=== PATIENT | male | born 1950 | race Caucasian/White ===

== ENCOUNTER → 2017-09-26 16:35 | Outpatient (CLI) | payer MEDICARE, OTHER, SELFPAY | PROVIDERS: Family Provider Physician Assistant; PCP Physician Assistant; Visit Provider Physician Assistant | DX: Z51.81 Encounter for therapeutic drug level monitoring (principal); E11.9 Type 2 diabetes mellitus without complications; N52.9 Male erectile dysfunction, unspecified; Z79.4 Long term (current) use of insulin; Z53.9 Procedure and treatment not carried out, unspecified reason | CPT/HCPCS: 36415; 82040; 84270; 84403 ==

== ENCOUNTER → 2017-10-07 12:26 | Outpatient (CLI) | payer MEDICARE, OTHER, SELFPAY ==
[2017-10-12 13:49] LABS: Testosterone Free 82.4 pg/mL (35.0-155.0); Testosterone Total 467 ng/dL (250-1100)
== END ==
PROVIDERS: Family Provider Physician Assistant; PCP Physician Assistant; Visit Provider Physician Assistant
DX: R79.89 Other specified abnormal findings of blood chemistry (principal)
CPT/HCPCS: 36415; 84402; 84403

== ENCOUNTER 2017-11-18 13:02 | Emergency (ER) | payer MEDICARE, OTHER, SELFPAY ==
[2017-11-18 13:38] VITALS: BP 139/71; PULSE 83; RESP 16; O2SAT 99; BMI 30.8
[2017-11-18 15:15] LABS: Prothrombin Time 10.5 SECONDS (10.1-12.7)
[2017-11-18 15:17] LABS: Add Manual Diff / Slide Review NO; Basophils Percent Auto 0.7 % (0-2); Eosinophils Percent Auto 3.6 % (2-4); Hematocrit 42.5 % (41-53); Hemoglobin 14.5 g/dL (13.5-17.5); Lymphocytes Percent Auto 30.1 % (25-40); Mean Corpuscular HGB Conc 34.2 % (30-36); Mean Corpuscular Hemoglobin 30.7 PG (26-34); Mean Corpuscular Volume 89.8 fL (80-100); Monocytes Percent Auto 5.8 % (3-14); Neutrophils Absolute Auto 3700 /uL (3000-5900); Neutrophils Percent Auto 59.8 % (50-75); PTT Partial Thromboplastin Tim 31 SECONDS (26.4-36.2); Platelet Count 179 X10^3/uL (150-400); Red Blood Cell Count 4.73 X10^6/uL (4.5-5.9); Red Cell Distribution Width 12.6 % (11.6-14.8); White Blood Cell Count 6.2 X10^3/uL (4.5-11.0)
[2017-11-18 15:22] LABS: Alanine Aminotransferase 27 IU/L (21-72); Albumin 4.2 g/dL (3.5-5.0); Albumin Globulin Ratio 1.6 (1.0-2.8); Alkaline Phosphatase 62 U/L (38-126); Aspartate Aminotransferase 22 IU/L (17-59); BUN Creatinine Ratio 26.3 (6-22); Bilirubin Total 0.3 mg/dL (0.2-1.3); Blood Urea Nitrogen 21 mg/dL (9-20); Calcium 9.2 mg/dL (8.4-10.2); Carbon Dioxide 30 mmol/L (22-32); Chloride 100 mmol/L (98-107); Estimated Glomerular Filt Rate > 60.0 mL/min (>60); Globulin 2.6 g/dL (1.7-4.1); Glucose 92 mg/dL (80-110); HEMOLYSIS < 15 (0-50); Lipase 1049 U/L (23-300); Sodium 138 mmol/L (137-145); Total Protein 6.8 g/dL (6.3-8.2)
[2017-11-18 16:17] VITALS: BP 123/74; PULSE 63; RESP 14; O2SAT 97
--- NOTE | 2017-11-18 16:19 | ED.ABDPAIN ---
HPI - Abdominal Pain <Felicitas Blakely PA-C - Last Filed: 11/18/17 21:40> General Chief Complaint: Abdominal Pain Stated Complaint: RIGHT FLANK PAIN BACK AND ABD Time Seen by Provider: 11/18/17 16:18 Source: patient Mode of arrival: ambulatory Limitations: no limitations History of Present Illness HPI narrative: This 59 gentleman comes in today due to approximately three-week history of right flank pain. He states that this radiates to the front under his ribs sometimes. He states that pain seems to be better sitting up, he rode his bike here and walked around [place] without any increase in pain. He states that the pain increases with compressing or crunching his abdomen. He also notes that he has been out on his sailboat for the last 2 weeks and often on before that and tends to hoist his sail and anchor with his right arm crossing across his body so thinks possibly related to this. He has been taking ibuprofen. He denies any food triggers or other known exacerbating features. He denies any nausea or vomiting. He denies any fever, chills, sweats. He denies any hematuria or urinary symptoms. He denies any bowel habit changes, chest pain, dyspnea, rashes, or other new symptoms, does say pain makes it hard to sleep on that side. He does have a small nodule in his right abdomen that has been present for years and asymptomatic. Pain is not acutely worse today, but happened to be back off of his sailboat Related Data Home Medications Medication Instructions Recorded Confirmed cyanocobalamin (vitamin B-12) 500 mcg PO QDAY #0 tab 01/13/16 09/01/17 [Vitamin B-12] [place] ea QDAY #30 04/27/17 09/01/17 Glucose: Test Strips str QID #100 06/23/17 09/01/17 Previous Rx's Medication Instructions Recorded citalopram 40 mg PO QDAY #90 tab 03/16/17 hydrochlorothiazide 25 mg PO QDAY #90 tab 03/16/17 lisinopril 40 mg PO QDAY #90 tab 03/16/17 metformin [Glucophage XR] 1,000 mg PO BID #360 tab 03/16/17 pravastatin 20 mg PO HS #90 tab 03/16/17 thyroid (pork) [[place] Thyroid] 60 mg PO QDAY #90 tab 04/19/17 Diabetic [place]oes ea #1 04/20/17 insulin glargine [Toujeo SoloStar 10 u SQ QDAY #3 pac 04/21/17 U-300 Insulin] liothyronine [Cytomel] 5 mcg PO QAM #90 tab 04/26/17 [place] ea QDAY #30 04/27/17 Glucose: Test Strips str QID #100 04/28/17 Glucose: Home Monitoring Kit kit #1 05/16/17 insulin glargine [Toujeo SoloStar 30 u SQ QDAY #3 pac 05/16/17 U-300 Insulin] insulin glargine [Lantus Solostar 20 u SQ QAM #2 syr 06/06/17 U-100 Insulin] Glucose: Test Strips str QID #100 06/23/17 epinephrine 0.3 mg/0.3 mL 0.3 mg IM ONCE PRN #2 each 09/01/17 injection, auto-injector phentermine 30 mg capsule 30 mg PO QAM #60 cap 09/01/17 testosterone cypionate 200 mg/mL 200 mg IM Q2W #10 ml MDD 1ml 09/01/17 intramuscular oil weekly maximum Allergies Allergy/AdvReac Type Severity Reaction Status Date / Time bee venom protein (honey bee) Allergy Unknown Verified 11/18/17 13:31 [BEE VENOM PROTEIN (HONEY BEE)] Review of Systems <Felicitas Blakely PA-C - Last Filed: 11/18/17 21:40> Review of Systems All systems reviewed & are unremarkable except as noted in HPI and below Exam <Felicitas Blakely PA-C - Last Filed: 11/18/17 21:40> Narrative Exam Narrative: GENERAL APPEARANCE: Patient sitting comfortably, in no distress. HEENT: PERRL, EOMI, no scleral icterus NECK: Supple, no masses LUNGS: Clear to auscultation bilaterally. HEART: Rate and rhythm regular, normal S1 and S2, no S3 or S4. ABDOMEN: Soft, nondistended, bowel sounds present x 4 quadrants, no masses palpable, no hepatosplenomegaly. He is very minimally tender in the right upper quadrant but does have a positive Rondon sign, no tenderness elsewhere, no guarding or rebound. Minimal right CVAT EXTREMITIES: No edema, no cyanosis DERMATOLOGIC: No jaundice or exanthem NEUROLOGIC: Alert and oriented with normal speech and coordination Initial Vital Signs Initial Vital Signs: Vital Signs Pulse Rate 83 11/18/17 13:38 Respiratory Rate 16 11/18/17 13:38 Blood Pressure 139/71 H 11/18/17 13:38 Pulse Oximetry 99 11/18/17 13:38 <David Barnett MD - Last Filed: 11/20/17 08:38> Initial Vital Signs Initial Vital Signs: Vital Signs Pulse Rate 83 11/18/17 13:38 Respiratory Rate 16 11/18/17 13:38 Blood Pressure 139/71 H 11/18/17 13:38 Pulse Oximetry 99 11/18/17 13:38 Course <Felicitas Blakely PA-C - Last Filed: 11/18/17 21:40> Additional Information: Reviewed findings with patient including lab work without normal lipase and essentially normal ultrasound. Pain has been going on for several weeks, not keeping him from activity, not associated with fever or vomiting. There does not appear to be any acute surgical issue. He does have an isolated elevated lipase. We talked about continuing NSAID, try to avoid the repetitive musculoskeletal stress on this area that he has had recently, and follow up with PCP. He is agreeable with this plan and will also return if any acutely worsening symptoms in the interim Orders Ordered: Discontinued Medications Sodium Chloride (Normal Saline 0.9%) 1,000 mls @ 1,000 mls/hr IV BOLUS ONE Stop: 11/18/17 17:15 Last Infusion: 11/18/17 17:35 Dose: 0 mls/hr Admin: 11/18/17 16:21 Dose: 1,000 mls/hr Vital Signs - 8 hr 11/18/17 16:17 11/18/17 17:02 11/18/17 18:37 Temperature 98.1 F Pulse Rate 63 63 65 Respiratory Rate 14 13 14 Blood Pressure 142/83 H Blood Pressure [Left Arm] 123/74 H 123/76 H Pulse Oximetry 97 100 97 <David Barnett MD - Last Filed: 11/20/17 08:38> Orders Ordered: Discontinued Medications Sodium Chloride (Normal Saline 0.9%) 1,000 mls @ 1,000 mls/hr IV BOLUS ONE Stop: 07/21/18 17:15 Last Infusion: 11/18/17 17:35 Dose: 0 mls/hr Admin: 11/18/17 16:21 Dose: 1,000 mls/hr Vital Signs - 8 hr 11/18/17 16:17 11/18/17 17:02 11/18/17 18:37 Temperature 98.1 F Pulse Rate 63 63 65 Respiratory Rate 14 13 14 Blood Pressure 142/83 H Blood Pressure [Left Arm] 123/74 H 123/76 H Pulse Oximetry 97 100 97 MDM - Abdominal Pain <Felicitas Blakely PA-C - Last Filed: 11/18/17 21:40> Lab Data Result diagrams: 11/18/17 15:02 11/18/17 15:02 Lab Results 11/18/17 11/18/17 11/18/17 Range/Units 15:02 15:02 15:02 WBC 6.2 (4.5-11.0) X10^3/uL RBC 4.73 (4.5-5.9) X10^6/uL Hgb 14.5 (13.5-17.5) g/dL Hct 42.5 (41-53) % MCV 89.8 (80-100) fL MCH 30.7 (26-34) PG MCHC 34.2 (30-36) % RDW 12.6 (11.6-14.8) % Plt Count 179 (150-400) X10^3/uL Neut % (Auto) 59.8 (50-75) % Lymph % (Auto) 30.1 (25-40) % [place] % (Auto) 5.8 (3-14) % Eos % (Auto) 3.6 (2-4) % Baso % (Auto) 0.7 (0-2) % Neut # (Auto) 3700 (5247-7767) /uL PT 10.5 (10.1-12.7) SECONDS INR 1.0 (0.9-1.3) APTT 31 (26.4-36.2) SECONDS Sodium 138 (137-145) mmol/L Potassium 4.0 (3.4-5.1) mmol/L Chloride 100 (98-107) mmol/L Carbon Dioxide 30 (22-32) mmol/L BUN 21 H (9-20) mg/dL Creatinine 0.80 (0.66-1.25) mg/dL Estimated GFR > 60.0 (>60) mL/min BUN/Creatinine Ratio 26.3 H (6-22) Glucose 92 (80-110) mg/dL Lactate (0.7-2.1) mmol/L Calcium 9.2 (8.4-10.2) mg/dL Total Bilirubin 0.3 (0.2-1.3) mg/dL AST 22 (17-59) IU/L ALT 27 (21-72) IU/L Alkaline Phosphatase 62 (38-126) U/L Total Protein 6.8 (6.3-8.2) g/dL Albumin 4.2 (3.5-5.0) g/dL Globulin 2.6 (1.7-4.1) g/dL Albumin/Globulin Ratio 1.6 (1.0-2.8) Lipase 1049 H (23-300) U/L // Range/Units 16:37 WBC (4.5-11.0) X10^3/uL RBC (4.5-5.9) X10^6/uL Hgb (13.5-17.5) g/dL Hct (41-53) % MCV (80-100) fL MCH (26-34) PG MCHC (30-36) % RDW (11.6-14.8) % Plt Count (150-400) X10^3/uL Neut % (Auto) (50-75) % Lymph % (Auto) (25-40) % [place] % (Auto) (3-14) % Eos % (Auto) (2-4) % Baso % (Auto) (0-2) % Neut # (Auto) (4639-4645) /uL PT (10.1-12.7) SECONDS INR (0.9-1.3) APTT (26.4-36.2) SECONDS Sodium (137-145) mmol/L Potassium (3.4-5.1) mmol/L Chloride (98-107) mmol/L Carbon Dioxide (22-32) mmol/L BUN (9-20) mg/dL Creatinine (0.66-1.25) mg/dL Estimated GFR (>60) mL/min BUN/Creatinine Ratio (6-22) Glucose (80-110) mg/dL Lactate 2.1 (0.7-2.1) mmol/L Calcium (8.4-10.2) mg/dL Total Bilirubin (0.2-1.3) mg/dL AST (17-59) IU/L ALT (21-72) IU/L Alkaline Phosphatase (38-126) U/L Total Protein (6.3-8.2) g/dL Albumin (3.5-5.0) g/dL Globulin (1.7-4.1) g/dL Albumin/Globulin Ratio (1.0-2.8) Lipase (23-300) U/L Point of care testing: Urine Dip Bedside Urine Glucose Negative Bedside Urine Bilirubin - Negative Bedside Urine Ketone - Negative Urine Specific [place] 1.015 Bedside Urine Occult Blood - Negative Bedside Urine pH 6.5 Bedside Urine Protein - Negative Bedside Urine Urobilinogen - Negative Bedside Urine Nitrite - Negative Bedside Urine Leukocytes - Negative Esterase <David Barnett MD - Last Filed: 11/20/17 08:38> Lab Data Lab Results 11/18/17 11/18/17 11/18/17 Range/Units 15:02 15:02 15:02 WBC 6.2 (4.5-11.0) X10^3/uL RBC 4.73 (4.5-5.9) X10^6/uL Hgb 14.5 (13.5-17.5) g/dL Hct 42.5 (41-53) % MCV 89.8 (80-100) fL MCH 30.7 (26-34) PG MCHC 34.2 (30-36) % RDW 12.6 (11.6-14.8) % Plt Count 179 (150-400) X10^3/uL Neut % (Auto) 59.8 (50-75) % Lymph % (Auto) 30.1 (25-40) % [place] % (Auto) 5.8 (3-14) % Eos % (Auto) 3.6 (2-4) % Baso % (Auto) 0.7 (0-2) % Neut # (Auto) 3700 (9133-7175) /uL PT 10.5 (10.1-12.7) SECONDS INR 1.0 (0.9-1.3) APTT 31 (26.4-36.2) SECONDS Sodium 138 (137-145) mmol/L Potassium 4.0 (3.4-5.1) mmol/L Chloride 100 (98-107) mmol/L Carbon Dioxide 30 (22-32) mmol/L BUN 21 H (9-20) mg/dL Creatinine 0.80 (0.66-1.25) mg/dL Estimated GFR > 60.0 (>60) mL/min BUN/Creatinine Ratio 26.3 H (6-22) Glucose 92 (80-110) mg/dL Lactate (0.7-2.1) mmol/L Calcium 9.2 (8.4-10.2) mg/dL Total Bilirubin 0.3 (0.2-1.3) mg/dL AST 22 (17-59) IU/L ALT 27 (21-72) IU/L Alkaline Phosphatase 62 (38-126) U/L Total Protein 6.8 (6.3-8.2) g/dL Albumin 4.2 (3.5-5.0) g/dL Globulin 2.6 (1.7-4.1) g/dL Albumin/Globulin Ratio 1.6 (1.0-2.8) Lipase 1049 H (23-300) U/L / Range/Units 16:37 WBC (4.5-11.0) X10^3/uL RBC (4.5-5.9) X10^6/uL Hgb (13.5-17.5) g/dL Hct (41-53) % MCV (80-100) fL MCH (26-34) PG MCHC (30-36) % RDW (11.6-14.8) % Plt Count (150-400) X10^3/uL Neut % (Auto) (50-75) % Lymph % (Auto) (25-40) % [place] % (Auto) (3-14) % Eos % (Auto) (2-4) % Baso % (Auto) (0-2) % Neut # (Auto) (6362-8552) /uL PT (10.1-12.7) SECONDS INR (0.9-1.3) APTT (26.4-36.2) SECONDS Sodium (137-145) mmol/L Potassium (3.4-5.1) mmol/L Chloride (98-107) mmol/L Carbon Dioxide (22-32) mmol/L BUN (9-20) mg/dL Creatinine (0.66-1.25) mg/dL Estimated GFR (>60) mL/min BUN/Creatinine Ratio (6-22) Glucose (80-110) mg/dL Lactate 2.1 (0.7-2.1) mmol/L Calcium (8.4-10.2) mg/dL Total Bilirubin (0.2-1.3) mg/dL AST (17-59) IU/L ALT (21-72) IU/L Alkaline Phosphatase (38-126) U/L Total Protein (6.3-8.2) g/dL Albumin (3.5-5.0) g/dL Globulin (1.7-4.1) g/dL Albumin/Globulin Ratio (1.0-2.8) Lipase (23-300) U/L Point of care testing: Urine Dip Bedside Urine Glucose Negative Bedside Urine Bilirubin - Negative Bedside Urine Ketone - Negative Urine Specific [place] 1.015 Bedside Urine Occult Blood - Negative Bedside Urine pH 6.5 Bedside Urine Protein - Negative Bedside Urine Urobilinogen - Negative Bedside Urine Nitrite - Negative Bedside Urine Leukocytes - Negative Esterase Discharge Plan Departure Patient Disposition: Home, Self-Care Clinical Impression: Chronic right flank pain Discharge Date/Time: 11/18/17 18:39 Interventions: ED Discharge Assessment Last Done: 11/18/17 18:37 Instructions: DI for Abdominal Pain-Adult Activity Restrictions/Additional Instructions: Since this pain has been going on for several weeks now and appears to be associated with you hoisting your heavy sails and anchors, it is reasonable to continue your Ibuprofen, and try to avoid stress on that area including heavy lifting and pulling. You may wish to try some [id number] lidocaine or topical pain patches. You should return as we talked about if acutely worsening or new symptoms such as vomiting or fever, otherwise please follow-up with your PCP next week to reassess. Prescriptions: No Action testosterone cypionate [Depo-Testosterone] 200 mg/mL oil 200 mg IM Q2W MDD 1ml weekly maximum Qty: 10 RF: 0 phentermine 30 mg capsule 30 mg PO QAM Qty: 60 RF: 1 epinephrine 0.3 mg/0.3 mL auto-injector 0.3 mg IM ONCE PRN (Reason: anaphylaxis) Qty: 2 RF: 1 cyanocobalamin (vitamin B-12) [Vitamin B-12] 500 MCG tablet 500 mcg PO QDAY Qty: 0 RF: 0 citalopram 40 MG tablet 40 mg PO QDAY Qty: 90 RF: 3 pravastatin 20 MG tablet 20 mg PO HS Qty: 90 RF: 3 hydrochlorothiazide 25 MG tablet 25 mg PO QDAY Qty: 90 RF: 3 lisinopril 40 MG tablet 40 mg PO QDAY Qty: 90 RF: 3 metformin [Glucophage XR] 500 MG tablet extended release 24 hr 1,000 mg PO BID Qty: 360 RF: 3 thyroid (pork) [[place] Thyroid] 60 MG tablet 60 mg PO QDAY Qty: 90 RF: 3 Diabetic Shoes Qty: 1 RF: 0 insulin glargine [Toujeo SoloStar U-300 Insulin] 300 UNIT/1 ML insulin pen 10 u SQ QDAY Qty: 3 RF: 9 liothyronine [Cytomel] 5 MCG tablet 5 mcg PO QAM Qty: 90 RF: 3 [place] QDAY Qty: 30 RF: 3 [place] QDAY Qty: 30 RF: 3 Glucose: Test Strips QID Qty: 100 RF: 11 Glucose: Home Monitoring Kit Qty: 1 RF: 0 insulin glargine [T[place]jeo SoloStar U-300 Insulin] 300 UNIT/1 ML insulin pen 30 u SQ QDAY Qty: 3 RF: 3 insulin glargine [Lantus Solostar U-100 Insulin] 100 UNIT/1 ML insulin pen 20 u SQ QAM Qty: 2 RF: 3 Glucose: Test Strips QID Qty: 100 RF: 5 Glucose: Test Strips QID Qty: 100 RF: 5 Referrals: Tamiko Dukes DO [Primary Care Provider] - <David Barnett MD - Last Filed: 11/20/17 08:38> Sign Out Provider Sign Out Attestation: The PA/CIVIL ENGINEERING ASSISTANT functioned independently for the care of this pt, I was available, but not asked to participate in care. I am unable to determine appropriateness of management without personally examining the pt.
[2017-11-18] MEDS: SODIUM CHLORIDE 0.9% 1,000 ML 1000 ML IV (16:21)
--- NOTE | 2017-11-18 16:32 | DI.US.S_ITS ---
PROCEDURE: US ABDOMEN COMPLETE INDICATIONS: RUQ pain, elevated lipase TECHNIQUE: Real-time scanning was performed of the abdominal and retroperitoneal organs, with image documentation. COMPARISON: None. FINDINGS: Liver: Liver is normal in size and homogeneous in echotexture. Gallbladder: The gallbladder is unremarkable. Biliary ducts: Intrahepatic bile ducts are non-dilated. Extrahepatic bile duct caliber is not visualized. Pancreas: Not visualized. Spleen: Spleen is normal in size and homogeneous in echotexture. Kidneys: Kidneys are normal in size and echotexture. Right kidney measures 12.1 cm long; left kidney measures 12.6 cm long. No hydronephrosis or nephrolithiasis. No solid masses. Aorta: Visualized aorta is normal in caliber at less than 3 cm. Iliacs: Proximal common iliac arteries are normal in caliber at less than 2.5 cm. IVC: Intrahepatic inferior vena cava is patent. Miscellaneous: No free abdominal fluid. IMPRESSION: Unremarkable exam. Dictated by: Elizabeth Simental M.D. on 11/18/2017 at 18:19 Approved by: Elizabeth Simental M.D. on 11/18/2017 at 18:19
[2017-11-18 17:02] VITALS: BP 123/76; PULSE 63; RESP 13; O2SAT 100
[2017-11-18 17:09] LABS: Lactate (Lactic Acid) 2.1 mmol/L (0.7-2.1)
[2017-11-18 18:37] VITALS: BP 142/83; PULSE 65; RESP 14; TEMP 36.7; O2SAT 97
== END 2017-11-18 18:39 | disposition home or self-care (01) ==
PROVIDERS: Emergency Provider Internal Medicine; PCP Family Medicine
DX: R10.9 Unspecified abdominal pain (principal); G89.29 Other chronic pain
CPT/HCPCS: 36415; 36591; 76700; 80053; 81003; 83605; 83690; 85025; 85610; 85730; 96360; 99283; 99284

== ENCOUNTER → 2017-12-14 13:34 | Outpatient (CLI) | payer MEDICARE, OTHER, SELFPAY ==
[2017-12-14 14:23] LABS: Alanine Aminotransferase 30 IU/L (21-72); Albumin 4.4 g/dL (3.5-5.0); Albumin Globulin Ratio 1.6 (1.0-2.8); Alkaline Phosphatase 64 U/L (38-126); Amylase 157 U/L (30-110); Aspartate Aminotransferase 24 IU/L (17-59); Bilirubin Total 0.3 mg/dL (0.2-1.3); Blood Urea Nitrogen 27 mg/dL (9-20); Calcium 9.9 mg/dL (8.4-10.2); Carbon Dioxide 30 mmol/L (22-32); Chloride 98 mmol/L (98-107); Estimated Glomerular Filt Rate > 60.0 mL/min (>60); Globulin 2.8 g/dL (1.7-4.1); Glucose 111 mg/dL (80-110); HEMOLYSIS < 15 (0-50); Lipase 841 U/L (23-300); Potassium 4.2 mmol/L (3.4-5.1); Sodium 139 mmol/L (137-145); Total Protein 7.2 g/dL (6.3-8.2)
== END ==
PROVIDERS: PCP Family Medicine
DX: R94.5 Abnormal results of liver function studies (principal); R10.9 Unspecified abdominal pain
CPT/HCPCS: 36415; 80053; 82150; 83690

== ENCOUNTER 2018-01-12 10:02 | Emergency (ER) | payer MEDICARE, OTHER, SELFPAY ==
[2018-01-12 10:04] VITALS: BP 164/83; PULSE 82; RESP 14; O2SAT 98; BMI 32.1
[2018-01-12 10:45] LABS: Add Manual Diff / Slide Review NO; Basophils Percent Auto 0.6 % (0-2); Eosinophils Percent Auto 3.5 % (2-4); Hematocrit 41.2 % (41-53); Hemoglobin 14.6 g/dL (13.5-17.5); Lymphocytes Percent Auto 35.7 % (25-40); Mean Corpuscular HGB Conc 35.5 % (30-36); Mean Corpuscular Hemoglobin 30.9 PG (26-34); Mean Corpuscular Volume 87.2 fL (80-100); Monocytes Percent Auto 5.3 % (3-14); Neutrophils Absolute Auto 2400 /uL (3000-5900); Neutrophils Percent Auto 54.9 % (50-75); Platelet Count 172 X10^3/uL (150-400); Red Blood Cell Count 4.72 X10^6/uL (4.5-5.9); Red Cell Distribution Width 13.1 % (11.6-14.8); White Blood Cell Count 4.3 X10^3/uL (4.5-11.0)
[2018-01-12 10:47] LABS: INR 1.1 (0.9-1.3); Prothrombin Time 11.5 SECONDS (10.1-12.7)
[2018-01-12 10:49] LABS: PTT Partial Thromboplastin Tim 33 SECONDS (26.4-36.2)
[2018-01-12 10:55] LABS: Alanine Aminotransferase 25 IU/L (21-72); Albumin 4.2 g/dL (3.5-5.0); Albumin Globulin Ratio 1.6 (1.0-2.8); Alkaline Phosphatase 62 U/L (38-126); Aspartate Aminotransferase 22 IU/L (17-59); BUN Creatinine Ratio 22.2 (6-22); Bilirubin Total 0.4 mg/dL (0.2-1.3); Blood Urea Nitrogen 20 mg/dL (9-20); Calcium 9.2 mg/dL (8.4-10.2); Carbon Dioxide 26 mmol/L (22-32); Chloride 100 mmol/L (98-107); Estimated Glomerular Filt Rate > 60.0 mL/min (>60); Globulin 2.7 g/dL (1.7-4.1); Glucose 215 mg/dL (80-110); HEMOLYSIS < 15 (0-50); Lipase 187 U/L (23-300); Potassium 4.1 mmol/L (3.4-5.1); Sodium 139 mmol/L (137-145); Total Protein 6.9 g/dL (6.3-8.2)
--- NOTE | 2018-01-12 10:56 | ED.ABDPAIN ---
HPI - Abdominal Pain General Chief Complaint: Abdominal Pain Stated Complaint: LEFT FLANK/BACK PAIN Time Seen by Provider: 01/12/18 10:19 Source: patient Mode of arrival: ambulatory Limitations: no limitations History of Present Illness HPI narrative: Patient is a 67-year-old male who presents with a left-sided back pain radiating around to his abdomen. This started last night. He could not find a comfortable position this morning. He has no pain down his leg. He actually has had some ongoing abdominal discomfort for a couple of months. He was seen here a few times noted to have an elevated lipase as high as 1000 he had an ultrasound which was unremarkable repeat lipase was 800. He denies any nausea or vomiting or mid epigastric pain. He has not had any fever or chills. He has no UTI symptoms. Related Data Home Medications Medication Instructions Recorded Confirmed cyanocobalamin (vitamin B-12) 500 mcg PO QDAY #0 tab 01/13/16 01/12/18 [Vitamin B-12] aspirin 81 mg tablet,delayed 81 mg PO DAILY 12/12/17 01/12/18 release insulin glargine [Lantus Solostar 20 units SQ QAM 01/12/18 01/12/18 U-100 Insulin] Previous Rx's Medication Instructions Recorded citalopram 40 mg PO QDAY #90 tab 03/16/17 hydrochlorothiazide 25 mg PO QDAY #90 tab 03/16/17 lisinopril 40 mg PO QDAY #90 tab 03/16/17 metformin [Glucophage XR] 1,000 mg PO BID #360 tab 03/16/17 pravastatin 20 mg PO HS #90 tab 03/16/17 liothyronine [Cytomel] 5 mcg PO QAM #90 tab 04/26/17 Glucose: Home Monitoring Kit kit #1 05/16/17 Glucose: Test Strips str QID #100 06/23/17 epinephrine 0.3 mg/0.3 mL 0.3 mg IM ONCE PRN #2 each 09/01/17 injection, auto-injector testosterone cypionate 200 mg/mL 200 mg IM Q2W #10 ml MDD 1ml 09/01/17 intramuscular oil weekly maximum cyclobenzaprine 5 mg PO TID PRN #10 tab 01/12/18 Allergies Allergy/AdvReac Type Severity Reaction Status Date / Time bee venom protein (honey bee) Allergy Unknown Verified 01/12/18 10:09 [BEE VENOM PROTEIN (HONEY BEE)] Review of Systems Review of Systems GENERAL: Denies chills, fatigue, malaise, fever, sweats, travel HEENT: Denies sinus pain, ear pain, sore throat, difficulty swallowing, neck pain RESPIRATORY: Denies dyspnea, cough, wheezing, hemoptysis, sputum. CARDIOVASCULAR: Denies chest pain, palpitations, orthopnea, edema GASTROINTESTINAL: See HPI : Denies dysuria, frequency, incontinence, hematuria, urinary retention, flank pain. MUSCULOSKELETAL: Denies weakness, joint pain, or bony pain SKIN: No rash, no erythema, no pruritus NEUROLOGIC: Denies weakness, dizziness, headache, numbness, change in speech, confusion PSYCHIATRIC: No concerning psychosocial issues. 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 seatbelt use: sometimes helmet use: Yes (usually) water heater temp set < 120 deg: Yes fire extinguisher in home: Yes carbon monox detector in home: Yes firearms in home: No Smoking Status: Former smoker alcohol intake: current during the past year weight has: other well-balanced diet: rarely or never daily servings fruits/ve-1 caffeine: Yes eating out: 1-3 times/week frequency: daily additional social history: uses reading glasses Exam Initial Vital Signs Initial Vital Signs: Vital Signs Pulse Rate 82 01/12/18 10:04 Respiratory Rate 14 01/12/18 10:04 Blood Pressure 164/83 H 01/12/18 10:04 Pulse Oximetry 98 01/12/18 10:04 Const General: cooperative and well developed Nutritional Appearance: well nourished Orientation: alert, awake, oriented x3 and not confused HENVT Head: normal to inspection and normocephalic Eyes General: appearance normal, both eyes and all related structures Neck Neck: normal visual inspection and full ROM Chest Chest: normal inspection of the chest Resp Effort & Inspection: normal respiratory effort Cardio Rhythm: regular rhythm Heart Sounds: S1 normal and S2 normal GI Inspection: normal to inspection Palpation: soft, No firm, No guarding and No rigid Back/Spine/Pelvis Back: normal to inspection and back tenderness (Mild lower lumbar pain no guarding no vertebral tenderness no step-offs) Skin General: no rashes or lesions noted, elasticity normal and turgor normal Neuro General: alert, oriented x3, gait normal and no focal motor deficits Speech: speech normal Course Orders Ordered: ED Orders 01/12/18 10:27 Complete Blood Count AUTO DIFF Stat Comprehensive Metabolic Panel Stat Lipase Stat Partial Thromboplastin Time Stat Prothrombin Time INR Stat 01/12/18 11:11 CT abdomen pelvis w con Stat Vital Signs - 8 hr 01/12/18 10:04 01/12/18 12:45 Pulse Rate 82 80 Respiratory Rate 14 18 Blood Pressure 164/83 H 162/78 H Pulse Oximetry 98 97 MDM - Abdominal Pain Lab Data Attestation: I reviewed the patient's lab results. Result diagrams: 01/12/18 10:27 01/12/18 10:27 Lab Results 01/12/18 01/12/18 01/12/18 Range/Units 10:27 10:27 10:27 WBC 4.3 L (4.5-11.0) X10^3/uL RBC 4.72 (4.5-5.9) X10^6/uL Hgb 14.6 (13.5-17.5) g/dL Hct 41.2 (41-53) % MCV 87.2 (80-100) fL MCH 30.9 (26-34) PG MCHC 35.5 (30-36) % RDW 13.1 (11.6-14.8) % Plt Count 172 (150-400) X10^3/uL Neut % (Auto) 54.9 (50-75) % Lymph % (Auto) 35.7 (25-40) % Mills % (Auto) 5.3 (3-14) % Eos % (Auto) 3.5 (2-4) % Baso % (Auto) 0.6 (0-2) % Neut # (Auto) 2400 L (8681-4784) /uL PT 11.5 (10.1-12.7) SECONDS INR 1.1 (0.9-1.3) APTT 33 D (26.4-36.2) SECONDS Sodium 139 (137-145) mmol/L Potassium 4.1 (3.4-5.1) mmol/L Chloride 100 (98-107) mmol/L Carbon Dioxide 26 (22-32) mmol/L BUN 20 (9-20) mg/dL Creatinine 0.90 (0.66-1.25) mg/dL Estimated GFR > 60.0 (>60) mL/min BUN/Creatinine Ratio 22.2 H (6-22) Glucose 215 H (80-110) mg/dL Calcium 9.2 (8.4-10.2) mg/dL Total Bilirubin 0.4 (0.2-1.3) mg/dL AST 22 (17-59) IU/L ALT 25 (21-72) IU/L Alkaline Phosphatase 62 (38-126) U/L Total Protein 6.9 (6.3-8.2) g/dL Albumin 4.2 (3.5-5.0) g/dL Globulin 2.7 (1.7-4.1) g/dL Albumin/Globulin Ratio 1.6 (1.0-2.8) Lipase 187 (23-300) U/L Point of care testing: Urine Dip Bedside Urine Glucose 250 mg/dl Bedside Urine Bilirubin - Negative Bedside Urine Ketone - Negative Urine Specific [place] 1.015 Bedside Urine Occult Blood - Negative Bedside Urine pH 6.0 Bedside Urine Protein - Negative Bedside Urine Urobilinogen - Negative Bedside Urine Nitrite - Negative Bedside Urine Leukocytes - Negative Esterase Imaging Data CT scan - abdomen: Radiologist's impression: PROCEDURE: CT ABDOMEN PELVIS W CON INDICATIONS: worsening on going left lower quad pain TECHNIQUE: After the administration of intravenous contrast, 5 mm thick sections acquired from the diaphragm to the symphysis. 5 mm coronal and sagittal reformats were acquired. For radiation dose reduction, the following was used: automated exposure control, adjustment of mA and/or kV according to patient size. COMPARISON: None. FINDINGS: Image quality: Excellent. ABDOMEN: Lung bases: Lung bases are clear. Heart size is normal. Solid organs: Nonspecific 2 mm hepatic hypodensity seen on image 19 series 2.. Gallbladder contracted otherwise unremarkable. Biliary system is non dilated. Pancreas enhances normally. Spleen is normal in size and enhancement. No adrenal nodules. Kidneys demonstrate normal size and enhancement, without hydronephrosis. Nonobstructive 3-4 mm left renal calculus Peritoneum and bowel: Bowel loops demonstrate normal wall thickness and caliber. No free fluid or air. Normal appendix. The rectum is unremarkable. No evidence of acute diverticulitis. There is moderate to large amount of retained stool Nodes and vessels: No retroperitoneal or mesenteric adenopathy by size criteria. Aorta and inferior vena cava are normal in size. Miscellaneous: No ventral hernias. PELVIS: Genitourinary: Bladder wall thickness is normal. Miscellaneous: Tiny fat-containing inguinal hernia. No pelvic adenopathy. Bones: No suspicious bony lesions. Multilevel thoracic and lumbar discogenic changes, chronic. Facet arthropathy and chronic L5 pars defects. No vertebral body compression fractures. IMPRESSION: Normal appendix. No specific visualized etiology for clinically reported left lower quadrant pain. Moderate to large amount of retained stool seen throughout the colon 3-4 mm nonobstructive left renal calculus. Chronic and incidental findings as above Dictated by: Blake Phillips M.D. on 01/12/2018 at 11:31 MDM Narrative Medical decision making narrative: Patient's symptoms really do seem to be more back and musculoskeletal rather than abdominal. Lipase is back to normal. CT does show some left renal stones but the ureter is clear. Patient has had kidney stones this does not feel sick. He also with the likely musculoskeletal. He has taken Flexeril in the past and has worked Discharge Plan Departure Patient Disposition: Home Clinical Impression: Back pain Discharge Date/Time: 01/12/18 12:45 Interventions: ED Discharge Assessment Last Done: 01/12/18 12:45 Instructions: DI for Low Back Pain Activity Restrictions/Additional Instructions: *You have been diagnosed with back pain *What to do: Blood work and CT scan are reassuring. You do have a stone in the left kidney which should not be causing problems at this time. Lipase is back to normal. *Continue to take medications as directed Flexeril 2 to 3 times a day if needed for muscle spasm-Faxed [facility] *Follow up with your primary care provider in 2-3 days *Return to ER if you should have increased numbness tingling, weakness or any new, worsening or concerning symptoms Prescriptions: New cyclobenzaprine 5 mg tablet 5 mg PO TID PRN (Reason: muscle spasm) Qty: 10 RF: 0 No Action testosterone cypionate [Depo-Testosterone] 200 mg/mL oil 200 mg IM Q2W MDD 1ml weekly maximum Qty: 10 RF: 0 epinephrine 0.3 mg/0.3 mL auto-injector 0.3 mg IM ONCE PRN (Reason: anaphylaxis) Qty: 2 RF: 1 aspirin 81 mg tablet,delayed release (DR/EC) 81 mg PO DAILY RF: 0 cyanocobalamin (vitamin B-12) [Vitamin B-12] 500 MCG tablet 500 mcg PO QDAY Qty: 0 RF: 0 citalopram 40 MG tablet 40 mg PO QDAY Qty: 90 RF: 3 pravastatin 20 MG tablet 20 mg PO HS Qty: 90 RF: 3 hydrochlorothiazide 25 MG tablet 25 mg PO QDAY Qty: 90 RF: 3 lisinopril 40 MG tablet 40 mg PO QDAY Qty: 90 RF: 3 metformin [Glucophage XR] 500 MG tablet extended release 24 hr 1,000 mg PO BID Qty: 360 RF: 3 liothyronine [Cytomel] 5 MCG tablet 5 mcg PO QAM Qty: 90 RF: 3 Glucose: Home Monitoring Kit Qty: 1 RF: 0 Glucose: Test Strips QID Qty: 100 RF: 5 insulin glargine [Lantus Solostar U-100 Insulin] 100 UNIT/1 ML insulin pen 20 units SQ QAM RF: 0 Referrals: [facility] [Provider Group] Tamiko Dukes DO [Primary Care Provider] -
--- NOTE | 2018-01-12 11:11 | DI.CT.S_ITS ---
PROCEDURE: CT ABDOMEN PELVIS W CON INDICATIONS: worsening on going left lower quad pain TECHNIQUE: After the administration of intravenous contrast, 5 mm thick sections acquired from the diaphragm to the symphysis. 5 mm coronal and sagittal reformats were acquired. For radiation dose reduction, the following was used: automated exposure control, adjustment of mA and/or kV according to patient size. COMPARISON: None. FINDINGS: Image quality: Excellent. ABDOMEN: Lung bases: Lung bases are clear. Heart size is normal. Solid organs: Nonspecific 2 mm hepatic hypodensity seen on image 19 series 2.. Gallbladder contracted otherwise unremarkable. Biliary system is non dilated. Pancreas enhances normally. Spleen is normal in size and enhancement. No adrenal nodules. Kidneys demonstrate normal size and enhancement, without hydronephrosis. Nonobstructive 3-4 mm left renal calculus Peritoneum and bowel: Bowel loops demonstrate normal wall thickness and caliber. No free fluid or air. Normal appendix. The rectum is unremarkable. No evidence of acute diverticulitis. There is moderate to large amount of retained stool Nodes and vessels: No retroperitoneal or mesenteric adenopathy by size criteria. Aorta and inferior vena cava are normal in size. Miscellaneous: No ventral hernias. PELVIS: Genitourinary: Bladder wall thickness is normal. Miscellaneous: Tiny fat-containing inguinal hernia. No pelvic adenopathy. Bones: No suspicious bony lesions. Multilevel thoracic and lumbar discogenic changes, chronic. Facet arthropathy and chronic L5 pars defects. No vertebral body compression fractures. IMPRESSION: Normal appendix. No specific visualized etiology for clinically reported left lower quadrant pain. Moderate to large amount of retained stool seen throughout the colon 3-4 mm nonobstructive left renal calculus. Chronic and incidental findings as above Dictated by: Blake Phillips M.D. on 01/12/2018 at 11:31 Approved by: Blake Phillips M.D. on 01/12/2018 at 11:46
[2018-01-12 12:45] VITALS: BP 162/78; PULSE 80; RESP 18; O2SAT 97
== END 2018-01-12 12:45 | disposition home or self-care (01) ==
PROVIDERS: Emergency Provider Emergency Medicine; PCP Family Medicine
DX: M54.9 Dorsalgia, unspecified (principal)
CPT/HCPCS: 36591; 74177; 80053; 81003; 83690; 85025; 85610; 85730; 99282; 99285; Q9967

== ENCOUNTER 2018-01-15 11:56 | Emergency (ER) | payer MEDICARE, OTHER, SELFPAY ==
--- NOTE | 2018-01-15 12:08 | ED_ITS ---
HPI - Back Pain/Injury <NEAL Morel - Last Filed: 01/15/18 21:40> General Chief Complaint: Back Pain/Injury Stated Complaint: left lower back pain Time Seen by Provider: 01/15/18 12:05 Source: patient Mode of arrival: ambulatory Limitations: no limitations History of Present Illness HPI Narrative: 67-year-old male with history of type 2 diabetes and chronic lower back pain that is a nonsmoker here for complaint of left lower back pain. He was seen at 3 days ago in the emergency room here had workup for left flank pain that radiated to the left lower quadrant with normal lab results and CT that showed a 3-4 mm non passing kidney stone. Was diagnosed with muscle skeletal lower back pain and prescribed cyclobenzaprine. He states that the cyclobenzaprine has helped his symptoms however he does have pain now that radiates down into his left buttocks area over the past couple of days. He has not been able to get back to primary care. He denies any trauma to the area. He is ambulatory into the emergency room. He reports worsening pain with movement of the left lower back region. He denies any loss of bladder or bowel control. MD Complaint: back pain Related Data Home Medications Medication Instructions Recorded Confirmed cyanocobalamin (vitamin B-12) 500 mcg PO QDAY #0 tab 01/13/16 01/15/18 [Vitamin B-12] aspirin 81 mg tablet,delayed 81 mg PO DAILY 12/12/17 01/15/18 release insulin glargine [Lantus Solostar 20 units SQ QAM 01/12/18 01/15/18 U-100 Insulin] Previous Rx's Medication Instructions Recorded citalopram 40 mg PO QDAY #90 tab 03/16/17 hydrochlorothiazide 25 mg PO QDAY #90 tab 03/16/17 lisinopril 40 mg PO QDAY #90 tab 03/16/17 metformin [Glucophage XR] 1,000 mg PO BID #360 tab 03/16/17 pravastatin 20 mg PO HS #90 tab 03/16/17 liothyronine [Cytomel] 5 mcg PO QAM #90 tab 04/26/17 Glucose: Home Monitoring Kit kit #1 05/16/17 Glucose: Test Strips str QID #100 06/23/17 epinephrine 0.3 mg/0.3 mL 0.3 mg IM ONCE PRN #2 each 09/01/17 injection, auto-injector testosterone cypionate 200 mg/mL 200 mg IM Q2W #10 ml MDD 1ml 09/01/17 intramuscular oil weekly maximum cyclobenzaprine 5 mg PO TID PRN #10 tab 01/12/18 oxycodone-acetaminophen [Percocet] 1 tab PO Q4-6H PRN #10 tab 01/15/18 prednisone 40 mg PO DAILY #8 tab 01/15/18 Allergies Allergy/AdvReac Type Severity Reaction Status Date / Time bee venom protein (honey bee) Allergy Unknown Verified 01/15/18 13:13 [BEE VENOM PROTEIN (HONEY BEE)] Review of Systems <NEAL Morel - Last Filed: 01/15/18 21:40> Constitutional Denies chills, Denies fever(s), Denies lethargy and Denies weakness Eyes Denies change in vision, Denies eye discharge, Denies irritation and Denies loss of vision ENT Ears, Nose, Mouth, and Throat: Denies change in voice, Denies neck pain, Denies sore throat and Denies throat swelling Cardiovascular Denies chest pain, Denies irregular heart rhythm, Denies lightheadedness, Denies palpitations and Denies orthopnea Respiratory Denies wheezing Gastrointestinal Gastrointestinal: Denies abdominal pain, Denies change in bowel habits, Denies diarrhea, Denies nausea and Denies vomiting Genitourinary Denies hematuria, Denies flank pain, Denies urinary incontinence and Denies urinary urgency Musculoskeletal Denies neck pain Comments: Left lower back pain Integumentary/Breasts Denies pruritus, Denies erythema, Denies rash and Denies wounds Neurologic Denies confusion, Denies loss of vision and Denies weakness Psychiatric Denies anxiety, Denies confusion, Denies depression, Denies homicidal ideation and Denies suicidal ideation Endocrine Denies palpitations Allergic/Immunologic Denies urticaria, Denies throat swelling and Denies wheezing Exam <NEAL Morel - Last Filed: 01/15/18 21:40> Initial Vital Signs Initial Vital Signs: Vital Signs Temperature 97.2 F L 01/15/18 12:11 Pulse Rate 80 01/15/18 12:11 Respiratory Rate 16 01/15/18 12:11 Blood Pressure 149/74 H 01/15/18 12:11 Pulse Oximetry 100 09/17/18 12:11 Const General: cooperative and well developed Nutritional Appearance: well nourished Orientation: alert, awake, oriented x3 and not confused HENIA Mouth: oral mucosae normal, oropharynx normal and moist mucous membranes Eyes Conjunctivae: conjunctivae normal Sclera: sclerae normal Pupils: PERRL EOM: EOM intact bilaterally Resp Effort & Inspection: normal respiratory effort, able to speak in complete sentences, no respiratory distress and no use of accessory muscles Auscultation: clear to auscultation bilaterally, no rales, no rhonchi and no wheezes Cardio Rate: regular rate Rhythm: regular rhythm Heart Sounds: no click, no gallops, no murmurs and no rubs Pulses: normal peripheral pulses GI Inspection: non-distended Palpation: soft, no hepatosplenomegaly, No guarding, No pulsatile mass and No tender Auscultation: normal bowel sounds Back/Spine/Pelvis Other: Tenderness on palpation to the paraspinals the left lumbar region with muscle spasm. No deformities. No midline tenderness. Distal sensation is intact. Distal pulses are intact. Distal range of motion is intact. Skin General: no rashes or lesions noted, No jaundice and No petechiae Neuro General: alert, oriented x3, gait normal and no focal motor deficits Speech: speech normal <Curtis Crenshaw DO - Last Filed: 01/18/18 08:41> Initial Vital Signs Initial Vital Signs: Vital Signs Temperature 97.2 F L 01/15/18 12:11 Pulse Rate 80 01/15/18 12:11 Respiratory Rate 16 01/15/18 12:11 Blood Pressure 149/74 H 01/15/18 12:11 Pulse Oximetry 100 01/15/18 12:11 Course <NEAL Morel - Last Filed: 01/15/18 21:40> Vital Signs - 8 hr 01/15/18 12:11 Temperature 97.2 F L Pulse Rate 80 Respiratory Rate 16 Blood Pressure 149/74 H Pulse Oximetry 100 <DO Jerome Alfonso Last Filed: 01/18/18 08:41> Vital Signs - 8 hr 01/15/18 12:11 Temperature 97.2 F L Pulse Rate 80 Respiratory Rate 16 Blood Pressure 149/74 H Pulse Oximetry 100 MDM - Back Pain/Injury <NEAL Morel - Last Filed: 01/15/18 21:40> Lab Data Urine Dip Bedside Urine Glucose Negative Bedside Urine Bilirubin - Negative Bedside Urine Ketone +/- 5 Urine Specific [place] 1.020 Bedside Urine Occult Blood - Negative Bedside Urine pH 6.0 Bedside Urine Protein +/- 15 Bedside Urine Urobilinogen - Negative Bedside Urine Nitrite - Negative Bedside Urine Leukocytes - Negative Esterase MDM Narrative Medical decision making narrative: Discussed with patient that since he had recent workup 3 days ago and was unremarkable that repeat workup and CT with most likely be unremarkable. Patient agrees and does not want workup at this time. He is concerned for worsening pain into the left lower back region that is not covered by cyclobenzaprine and ibuprofen. Along with pain now radiating into his left buttocks area. Signs and symptoms presents as chronic lower back pain exacerbation with sciatica. Patient request Percocet. He is provided with a small prescription of Percocet patient instructed not to use in conjunction with the cyclobenzaprine patient stated he understood. Will add short course of prednisone. Patient instructed to monitor his blood blood sugars with the prednisone. Patient states that he is having difficulty getting to a primary care. Will refer to orthopedics for continued care. MRI may be warranted if the pain does not resolve. Physical therapy may be of benefit as well. Urinalysis was obtained was negative for blood in the urine. <Curtis Crenshaw DO - Last Filed: 01/18/18 08:41> Lab Data Urine Dip Bedside Urine Glucose Negative Bedside Urine Bilirubin - Negative Bedside Urine Ketone +/- 5 Urine Specific [place] 1.020 Bedside Urine Occult Blood - Negative Bedside Urine pH 6.0 Bedside Urine Protein +/- 15 Bedside Urine Urobilinogen - Negative Bedside Urine Nitrite - Negative Bedside Urine Leukocytes - Negative Esterase Discharge Plan Departure Patient Disposition: Home Clinical Impression: Chronic lower back pain Discharge Date/Time: 01/15/18 12:46 Interventions: ED Discharge Assessment Last Done: 01/15/18 12:46 Instructions: DI for Back Pain With Sciatica Activity Restrictions/Additional Instructions: Urinalysis was negative for blood. Signs and symptoms presents as exacerbation of chronic lower back pain with sciatica. Continue to use ibuprofen and the cyclobenzaprine as needed for discomfort and muscle spasm. Short course of prednisone is at to help with inflammation use as directed. Monitor your blood sugars as a prednisone can increase your blood sugars. Follow up with primary care provider or Orthopedics for further care. May need MRI of the lower back area for further evaluation if pain does not resolve. Physical therapy may also be of benefit. Rest area. Gentle range of motion to painful area to help keep muscles loose. Small amount of Percocet is prescribed for breakthrough pain not covered by ibuprofen use as directed do not use in conjunction with the cyclobenzaprine. For any worsening symptoms return to the emergency room. Prescriptions: New prednisone 20 mg tablet 40 mg PO DAILY Qty: 8 RF: 0 oxycodone-acetaminophen [Percocet] 5-325 mg tablet 1 tab PO Q4-6H PRN (Reason: pain) Qty: 10 RF: 0 No Action testosterone cypionate [Depo-Testosterone] 200 mg/mL oil 200 mg IM Q2W MDD 1ml weekly maximum Qty: 10 RF: 0 epinephrine 0.3 mg/0.3 mL auto-injector 0.3 mg IM ONCE PRN (Reason: anaphylaxis) Qty: 2 RF: 1 aspirin 81 mg tablet,delayed release (DR/EC) 81 mg PO DAILY RF: 0 cyanocobalamin (vitamin B-12) [Vitamin B-12] 500 MCG tablet 500 mcg PO QDAY Qty: 0 RF: 0 citalopram 40 MG tablet 40 mg PO QDAY Qty: 90 RF: 3 pravastatin 20 MG tablet 20 mg PO HS Qty: 90 RF: 3 hydrochlorothiazide 25 MG tablet 25 mg PO QDAY Qty: 90 RF: 3 lisinopril 40 MG tablet 40 mg PO QDAY Qty: 90 RF: 3 metformin [Glucophage XR] 500 MG tablet extended release 24 hr 1,000 mg PO BID Qty: 360 RF: 3 liothyronine [Cytomel] 5 MCG tablet 5 mcg PO QAM Qty: 90 RF: 3 Glucose: Home Monitoring Kit Qty: 1 RF: 0 Glucose: Test Strips QID Qty: 100 RF: 5 insulin glargine [Lantus Solostar U-100 Insulin] 100 UNIT/1 ML insulin pen 20 units SQ QAM RF: 0 cyclobenzaprine 5 mg tablet 5 mg PO TID PRN (Reason: muscle spasm) Qty: 10 RF: 0 <Curtis Crenshaw, DO - Last Filed: 01/18/18 08:41> Cosign ED Attending Cosmerature Attestation: I was immediately available in the department for consultation. Documentation has been reviewed. I agree with assessment and plan.
[2018-01-15 12:11] VITALS: BP 149/74; PULSE 80; RESP 16; TEMP 36.2; O2SAT 100
== END 2018-01-15 12:46 | disposition home or self-care (01) ==
PROVIDERS: Emergency Provider Nurse Practitioner Family; PCP Family Medicine
DX: M54.5 Low back pain (principal); G89.29 Other chronic pain
CPT/HCPCS: 81003; 99283

== ENCOUNTER → 2018-01-22 11:36 | Outpatient (CLI) | payer MEDICARE, OTHER, SELFPAY ==
--- NOTE | 2018-01-22 11:38 | DI.RAD.S_ITS ---
PROCEDURE: XR HIP W PEL IF DONE LT MIN 4V INDICATIONS: Left hip pain - soft tissue mass left iliac area. TECHNIQUE: AP pelvis with lateral view(s) of the bilateral hip(s). COMPARISON: [facility], CT, CT ABDOMEN PELVIS W CON, 01/12/2018, 11:14. FINDINGS: Bones: No fractures or dislocations. Pelvic ring appears intact. No suspicious bony lesions. There are mild bilateral hip joint and lumbar spine degenerative changes. There is a small calcific density just superior to the lateral left hip joint, which may represent sequela of prior avulsion fracture. Soft tissues: There is a hazy indistinct radiopaque density projecting lateral to the left hip joint, measuring up to 7.5 cm in greatest diameter, and correlating with a radiopaque BB on the overlying skin surface. No clear correlate is seen on comparison CT of 01/12/18. IMPRESSION: Hazy asymmetric indistinct soft tissue density lateral to the left hip joint. No clear correlate is seen on comparison CT of 01/12/18. Consider targeted ultrasound or cross-sectional imaging such as MRI for further evaluation. Dictated by: Dustin Leiva M.D. on 01/22/2018 at 17:21 Approved by: Dustin Leiva M.D. on 01/22/2018 at 17:29
== END ==
PROVIDERS: PCP Physician Assistant; Visit Provider Physician Assistant
DX: M25.552 Pain in left hip (principal); M79.89 Other specified soft tissue disorders; M25.522 Pain in left elbow
CPT/HCPCS: 73522

== ENCOUNTER → 2018-01-31 09:56 | Outpatient (CLI) | payer MEDICARE, OTHER, SELFPAY ==
[2018-01-31 10:50] LABS: Cholesterol 141 mg/dL (140-199); HDL Cholesterol 54 mg/dL (40-60); LDL Cholesterol Calculated 65 mg/dL (<100); Triglycerides 112 mg/dL (35-150)
[2018-01-31 10:54] LABS: Lipase 711 U/L (23-300)
[2018-01-31 11:20] LABS: Hemoglobin A1C% w Est Avg Glu 6.5 % (4.0-6.0)
[2018-01-31 11:56] LABS: Creatinine Urine Random 185.2 mg/dL
[2018-01-31 12:01] LABS: Microalbumi Creatinin Ratio Ur 8.6 ug/mg CR (<30); Microalbumin Urine Random 1.6 mg/dL (0-1.6)
[2018-02-02 18:27] LABS: Fecal Immunochemical Test NOT DETECTED
== END ==
PROVIDERS: PCP Physician Assistant; Visit Provider Physician Assistant
DX: E11.9 Type 2 diabetes mellitus without complications (principal); E78.2 Mixed hyperlipidemia; I10 Essential (primary) hypertension; Z79.4 Long term (current) use of insulin; Z12.11 Encounter for screening for malignant neoplasm of colon; R74.8 Abnormal levels of other serum enzymes
CPT/HCPCS: 36415; 80061; 82043; 82274; 82570; 83036; 83690

== ENCOUNTER → 2018-01-31 19:53 | Outpatient (CLI) | payer MEDICARE, OTHER, SELFPAY ==
--- NOTE | 2018-01-31 19:57 | DI.MRI.S_ITS ---
PROCEDURE: MR HIP LT WO CON INDICATIONS: L hip pain w/soft tissue mass (see xray L hip) TECHNIQUE: Noncontrast coronal T1 spin echo and STIR through the bony pelvis. Coronal and axial T2 fast spin echo with fat saturation, sagittal T1 spin echo, and oblique axial T2 fast spin echo with fat saturation through the hip. COMPARISON: [facility], CT, CT ABDOMEN PELVIS W CON, 01/12/2018, 11:14. [facility], CR, XR HIP W PEL IF DONE GUSTAVO 3TO4V, 01/22/2018, 11:22. FINDINGS: Image quality: Excellent. Bones and joints: Bone marrow of the pelvic ring and proximal femurs show normal signal throughout. Mild joint space narrowing is seen in bilateral hips with joint space narrowing and subchondral sclerosis. No intraosseous lesions or fractures. No avascular necrosis of the femoral heads. The visualized lower lumbar spine appears normally aligned. Tendons and ligaments: There is mild distal gluteus medius and gluteus minimus tendinosis there there is insertion on greater trochanter are. No evidence of tendon tear. No associated muscle atrophy. The nearby proximal iliotibial band also appears intact. The iliopsoas tendon appears intact, without adjacent bursal fluid collections or evidence for impingement syndrome. The origin of the hamstring tendon is intact at the ischial tuberosity, as well as the associated sacrotuberous ligament. The straight and reflected heads of the rectus femoris muscle origin appear intact, as well as the conjoint tendon. The ligamentum teres appears intact where visualized. Labrum and cartilage: The acetabular labrum appears intact in the absence of intra-articular contrast. Cartilage surface of the femoral head appears of normal thickness. The alpha angle of the femur is within normal limits at less than 55 degrees. Soft tissues: Visualized muscles demonstrate normal bulk and internal signal. Quadratus femoris muscle demonstrates no internal edema to suggest ischiofemoral impingement. The proximal sciatic neurovascular bundle appears normal adjacent to the hamstring tendons. No free pelvic fluid. Bladder wall thickness is normal. Genitourinary structures and bowel loops appear normal where visualized. IMPRESSION: 1. No soft tissue mass or fluid collection is seen. 2. Mild left hip joint osteophytes. No fracture or dislocation. No marrow edema. No evidence of avascular necrosis. 3. Distal left gluteus medius and minimus tendinosis at the insertion on greater trochanter. No evidence of left hip tendon or muscle tear. No muscle signal abnormality. No intramuscular mass or fluid collection is seen. 4. No evidence of focal labral tear. Dictated by: Bryan Sierra M.D. on 02/01/2018 at 10:58 Approved by: Bryan Sierra M.D. on 02/01/2018 at 11:37
== END ==
PROVIDERS: Family Provider Physician Assistant; PCP Physician Assistant; Visit Provider Physician Assistant
DX: M25.552 Pain in left hip (principal); M79.9 Soft tissue disorder, unspecified; R93.6 Abnormal findings on diagnostic imaging of limbs
CPT/HCPCS: 36415; 73721; 80061; 82043; 82274; 82570; 83036; 83690

== ENCOUNTER 2018-02-03 22:27 | Emergency (ER) | payer MEDICARE, OTHER, SELFPAY ==
[2018-02-03 22:35] VITALS: BP 169/84; PULSE 79; RESP 18; TEMP 36.8; O2SAT 97
--- NOTE | 2018-02-03 22:39 | ED.EXTPRO ---
HPI - Extremity Problem General Chief complaint: Extremity Problem,Nontraumatic Stated complaint: HIP PAIN LEFT MORE THAN RIGHT BACK PAIN Time Seen by Provider: 02/03/18 22:34 Source: patient Mode of arrival: ambulatory Limitations: no limitations History of Present Illness HPI Narrative: Patient is a 67-year-old male here for evaluation of bilateral lower back pain and left hip pain. This is not new for him. He recently had an MRI of his left hip ordered by his primary provider. He states that he also has lower back pain. No bowel symptoms. No urinary symptoms. No fevers. Is taking 800 mg Motrin at home on a daily basis. Other than his normal pain regiment he has not tried anything for this prior to Related Data Home Medications Medication Instructions Recorded Confirmed cyanocobalamin (vitamin B-12) 500 mcg PO QDAY #0 tab 01/13/16 02/01/18 [Vitamin B-12] aspirin 81 mg tablet,delayed 81 mg PO DAILY 12/12/17 02/01/18 release insulin glargine [Lantus Solostar 20 units SQ QAM 01/12/18 02/01/18 U-100 Insulin] Previous Rx's Medication Instructions Recorded citalopram 40 mg PO QDAY #90 tab 03/16/17 hydrochlorothiazide 25 mg PO QDAY #90 tab 03/16/17 lisinopril 40 mg PO QDAY #90 tab 03/16/17 metformin [Glucophage XR] 1,000 mg PO BID #360 tab 03/16/17 pravastatin 20 mg PO HS #90 tab 03/16/17 liothyronine [Cytomel] 5 mcg PO QAM #90 tab 04/26/17 Glucose: Home Monitoring Kit kit #1 05/16/17 Glucose: Test Strips str QID #100 06/23/17 epinephrine 0.3 mg/0.3 mL 0.3 mg IM ONCE PRN #2 each 09/01/17 injection, auto-injector varicella-zoster glycoE [id number] 50 mcg IM ONCE #1 each 01/22/18 adj(PF) 50 mcg/0.5 mL IM susp, kit cyclobenzaprine 5 mg tablet See Label Instructions PO TID PRN 02/01/18 #45 tab celecoxib [Celebrex] 100 mg PO BID #60 cap 02/03/18 Allergies Allergy/AdvReac Type Severity Reaction Status Date / Time bee venom protein (honey bee) Allergy Severe anaphylactic Verified 02/01/18 11:29 [BEE VENOM PROTEIN (HONEY shock BEE)] Review of Systems Constitutional Denies fatigue and Denies fever(s) ENT Ears, Nose, Mouth, and Throat: Denies vertigo and Denies dizziness Cardiovascular Denies chest pain Genitourinary Denies dysuria, Denies testicular pain, Denies urinary frequency and Denies urinary incontinence Musculoskeletal Reports back pain, Denies myalgias, Denies deformity and Reports arthralgias ( left hip) Integumentary/Breasts Denies lesions and Denies rash Neurologic Denies vertigo, Denies dizziness and Reports radicular pain Endocrine Denies fatigue Hematologic/Lymphatic Denies easy bleeding and Denies easy bruising [facility] Medical History Allergy (Chronic Unknown) Depression (Chronic Unknown) Diabetes (Chronic Unknown) Erectile dysfunction (Chronic Unknown) H/O tinnitus (Chronic 1993) Hyperlipidemia (Chronic Unknown) Hypertension (Chronic 1994) Neuropathy (Chronic) 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) Sleep apnea (Chronic 2004) Toe ulcer (Chronic) Chickenpox (Resolved 1957) H/O methicillin resistant Staphylococcus aureus infection (Resolved 2003) Open toe wound (Resolved Unknown) Vertigo (Resolved Unknown) Surgical History H/O Achilles tendon repair (Resolved 2003) Hx of surgical procedure (Resolved ~05/2017) Hx of tonsillectomy (Resolved ~1951) S/P ACL repair (Resolved 2005) Family History Brother Age: 70 Hypertension Father Hypertension High cholesterol Sister Age: 68 Cancer Social History household members: none pets and animals: No education level: college occupational status: other leisure activities: other other: sailing, cycling, rowing. seatbelt use: sometimes helmet use: Yes (usually) water heater temp set < 120 deg: Yes fire extinguisher in home: Yes carbon monox detector in home: Yes firearms in home: No Smoking Status: Former smoker Tobacco: How many years used: 8 (off and on. I quit in 1981.) second hand exposure: No alcohol intake: current (1 beer a week.) substance use type: does not use during the past year weight has: other well-balanced diet: rarely or never daily servings fruits/ve-1 caffeine: Yes eating out: 1-3 times/week frequency: daily additional social history: uses reading glasses Exam Initial Vital Signs Initial Vital Signs: Vital Signs Temperature 98.2 F 02/03/18 22:35 Pulse Rate 79 02/03/18 22:35 Respiratory Rate 18 02/03/18 22:35 Blood Pressure 169/84 H 02/03/18 22:35 Pulse Oximetry 97 02/03/18 22:35 Const General: cooperative, healthy appearing, well developed, well groomed and No acute distress Orientation: alert, awake and oriented x3 HENMT Head: normal to inspection and normocephalic Resp Effort & Inspection: normal respiratory effort Back/Spine/Pelvis Back: No erythema Thoracic/Lumbar Spine: paraspinal tenderness, thoraco-lumbar ROM limited, No thoraco-lumbar spasm, No thoracic spinal tenderness and lumbar spinal tenderness Sacroiliac Joints: tender to palpation bilateral Skin Lesions: no lesions Rashes: no rashes Neuro General: alert, awake and oriented x3 Cognition: normal cognition Speech: speech normal Motor: muscle tone normal throughout Sensory Exam: no sensory deficits noted Extrem General: normal to inspection and capillary refill normal Psych Appearance: grossly normal and well kempt Course Orders Ordered: Discontinued Medications Ketorolac Tromethamine (Toradol) 30 mg IM NOW ONE Stop: 02/03/18 22:58 Last Admin: 02/03/18 23:15 Dose: 30 mg Vital Signs - 8 hr 02/03/18 22:35 02/04/18 00:19 Temperature 98.2 F Pulse Rate 79 82 Respiratory Rate 18 Blood Pressure 169/84 H 118/67 Pulse Oximetry 97 MDM - Extremity (Nontraumatic) MDM Narrative Medical decision making narrative: I reviewed the recent MRI of his left hip which did not show any acute abnormalities. He has not had an MRI of his lower spine. He stated that he was hoping that he could get that MRI here in the emergency department. He has no signs or red flag symptoms consistent with cauda equina or fracture or infection. No indication to get the MRI here in the emergency department. I did discuss this with him. He does have a consult placed by his primary doctor for physical therapy. I did inform him that he needed to get this set up. Will change his Motrin to Celebrex. He has a prescription for Flexeril and pain medication already from his primary care doctor. We did discuss the importance of him staying active. Informed him that most back pain does improve with time however this may be several weeks to months. We did discuss that if he needed to see a spine surgeon then his primary doctor could place a consult for him. He was given return precautions. Discharge Plan Departure Patient Disposition: Home Clinical Impression: Low back pain radiating down leg Discharge Date/Time: 02/04/18 00:20 Interventions: ED Discharge Assessment Last Done: 02/04/18 00:19 Instructions: Managing Chronic Low Back Pain, Back Pain (Alternative Therapy), DI for Back Pain With Sciatica, Activity May Be Better then Rest for Low Back Pain Recovery, Exercise May Reduce Risk of Low Back Pain Activity Restrictions/Additional Instructions: stop taking the Motrin / ibuprofen and start the Celebrex that you were given a prescription for this evening. Contact your primary care provider to discuss the indications for a lower back MRI and referral to see Orthopedic surgery. Prescriptions: New celecoxib [Celebrex] 100 mg capsule 100 mg PO BID Qty: 60 RF: 0 No Action epinephrine 0.3 mg/0.3 mL auto-injector 0.3 mg IM ONCE PRN (Reason: anaphylaxis) Qty: 2 RF: 1 aspirin 81 mg tablet,delayed release (DR/EC) 81 mg PO DAILY RF: 0 varicella-zoster [id number] (PF) [Shingrix (PF)] 50 mcg/0.5 mL suspension for reconstitution 50 mcg IM ONCE Qty: 1 RF: 1 cyclobenzaprine 5 mg tablet See Label Instructions PO TID PRN (Reason: muscle spasm) Qty: 45 RF: 1 cyanocobalamin (vitamin B-12) [Vitamin B-12] 500 MCG tablet 500 mcg PO QDAY Qty: 0 RF: 0 citalopram 40 MG tablet 40 mg PO QDAY Qty: 90 RF: 3 pravastatin 20 MG tablet 20 mg PO HS Qty: 90 RF: 3 hydrochlorothiazide 25 MG tablet 25 mg PO QDAY Qty: 90 RF: 3 lisinopril 40 MG tablet 40 mg PO QDAY Qty: 90 RF: 3 metformin [Glucophage XR] 500 MG tablet extended release 24 hr 1,000 mg PO BID Qty: 360 RF: 3 liothyronine [Cytomel] 5 MCG tablet 5 mcg PO QAM Qty: 90 RF: 3 Glucose: Home Monitoring Kit Qty: 1 RF: 0 Glucose: Test Strips QID Qty: 100 RF: 5 insulin glargine [Lantus Solostar U-100 Insulin] 100 UNIT/1 ML insulin pen 20 units SQ QAM RF: 0
--- NOTE | 2018-02-03 22:50 | PC.NURSE ---
Pt denies any injury related to left hip pain. Pt states that it has hurt for approx 1 month.
[2018-02-03] MEDS: KETOROLAC 60 MG/2 ML VIAL 30 MG IM (23:15)
[2018-02-04 00:19] VITALS: BP 118/67; PULSE 82
--- NOTE | 2018-02-08 16:52 | PC.NURSE ---
Called for pt follow up,no answer
== END 2018-02-04 00:20 | disposition home or self-care (01) ==
PROVIDERS: Emergency Provider Emergency Medicine; Family Provider Physician Assistant; PCP Physician Assistant
DX: M54.5 Low back pain (principal)
CPT/HCPCS: 96372; 99282; 99283; J1885

== ENCOUNTER → 2018-02-08 12:02 | Outpatient (CLI) | payer MEDICARE, OTHER, SELFPAY ==
[2018-02-08 13:36] LABS: Alanine Aminotransferase 34 IU/L (21-72); Albumin 4.4 g/dL (3.5-5.0); Albumin Globulin Ratio 1.7 (1.0-2.8); Alkaline Phosphatase 56 U/L (38-126); Amylase 51 U/L (30-110); Aspartate Aminotransferase 32 IU/L (17-59); Bilirubin Total 0.5 mg/dL (0.2-1.3); Bilirubin Unconjugated 0.1 mg/dL (0.0-1.1); Gamma Glutamyl Transpeptidase 34 U/L (15-73); Globulin 2.6 g/dL (1.7-4.1); HEMOLYSIS 22 (0-50); Lipase 58 U/L (23-300)
[2018-02-08 14:02] LABS: Thyroid Stimulating Hormone 2.37 uIU/mL (0.47-4.68)
== END ==
PROVIDERS: Family Provider Physician Assistant; PCP Physician Assistant; Visit Provider Physician Assistant
DX: E11.9 Type 2 diabetes mellitus without complications (principal); E78.2 Mixed hyperlipidemia; R74.8 Abnormal levels of other serum enzymes; Z79.4 Long term (current) use of insulin
CPT/HCPCS: 36415; 80076; 82150; 82977; 83690; 84443

== ENCOUNTER → 2018-03-31 13:06 | Outpatient (CLI) | payer MEDICARE, OTHER, SELFPAY ==
[2018-03-31 14:03] LABS: Alanine Aminotransferase 37 IU/L (21-72); Albumin 4.7 g/dL (3.5-5.0); Albumin Globulin Ratio 1.7 (1.0-2.8); Alkaline Phosphatase 65 U/L (38-126); Amylase 95 U/L (30-110); Aspartate Aminotransferase 30 IU/L (17-59); Bilirubin Total 0.4 mg/dL (0.2-1.3); Bilirubin Unconjugated 0.2 mg/dL (0.0-1.1); Globulin 2.7 g/dL (1.7-4.1); HEMOLYSIS 19 (0-50); Lipase 405 U/L (23-300); Total Protein 7.4 g/dL (6.3-8.2)
== END ==
PROVIDERS: Family Provider Physician Assistant; PCP Physician Assistant; Visit Provider Physician Assistant
DX: R74.8 Abnormal levels of other serum enzymes (principal); E11.9 Type 2 diabetes mellitus without complications; Z79.4 Long term (current) use of insulin
CPT/HCPCS: 36415; 80076; 82150; 83690

== ENCOUNTER → 2018-04-27 13:14 | Outpatient (CLI) | payer MEDICARE, OTHER, SELFPAY ==
[2018-04-27 14:15] LABS: Hemoglobin A1C% w Est Avg Glu 6.7 % (4.0-6.0)
[2018-04-27 14:45] LABS: Alanine Aminotransferase 30 IU/L (21-72); Albumin 4.5 g/dL (3.5-5.0); Albumin Globulin Ratio 1.7 (1.0-2.8); Alkaline Phosphatase 66 U/L (38-126); Aspartate Aminotransferase 21 IU/L (17-59); Bilirubin Total 0.4 mg/dL (0.2-1.3); Blood Urea Nitrogen 28 mg/dL (9-20); Calcium 9.7 mg/dL (8.4-10.2); Carbon Dioxide 28 mmol/L (22-32); Chloride 100 mmol/L (98-107); Cholesterol 157 mg/dL (140-199); Estimated Glomerular Filt Rate > 60.0 mL/min (>60); Globulin 2.7 g/dL (1.7-4.1); Glucose 170 mg/dL (80-110); HDL Cholesterol 50 mg/dL (40-60); HEMOLYSIS < 15 (0-50); LDL Cholesterol Calculated 37 mg/dL (<100); Potassium 4.6 mmol/L (3.4-5.1); Sodium 142 mmol/L (137-145); Total Protein 7.2 g/dL (6.3-8.2); Triglycerides 352 mg/dL (35-150)
== END ==
PROVIDERS: PCP Physician Assistant; Visit Provider Physician Assistant
DX: E11.9 Type 2 diabetes mellitus without complications (principal); E78.2 Mixed hyperlipidemia; I10 Essential (primary) hypertension; Z79.4 Long term (current) use of insulin
CPT/HCPCS: 36415; 80053; 80061; 83036

== ENCOUNTER 2018-06-13 12:15 | Outpatient (RCR) | payer MEDICARE, OTHER, SELFPAY ==
--- NOTE | 2018-02-21 17:00 | PT.OIE ---
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) Sleep apnea (Chronic 2004) Toe ulcer (Chronic) Chickenpox (Resolved 1957) H/O methicillin resistant Staphylococcus aureus infection (Resolved 2003) Open toe wound (Resolved Unknown) Vertigo (Resolved Unknown) Past Surgical History (Last Reviewed 02/04/18 @ 03:47 by Rajinder Miranda DO) H/O Achilles tendon repair (Resolved 2003) Hx of surgical procedure (Resolved ~05/2017) Hx of tonsillectomy (Resolved ~1951) S/P ACL repair (Resolved 2005) Provider Visit Care Team Role Provider Type Natasha Carrasco PA-C Attending Provider Advanced Candy Catcher Family Provider Primary Care Provider Specialty: Medical Address: [address] [place] [address] Email: [email or web address] Physical Therapy Initial Evaluation PT-OP-A Visit Information Start: 02/21/18 15:30 Freq: Status: Active Protocol: Document 02/21/18 15:33 EA (Rec: 02/21/18 16:00 EA [id number]) Out-Patient Physical Therapy Visit Information Visit Information Visit Type Initial Evaluation Visit Start Time 13:45 Visit Stop Time 14:25 Total Visit Minutes 40 Visit Number 1 Evaluation Information Evaluation Date 02/21/18 PT-OP-B Current Condition Start: 02/21/18 15:30 Freq: Status: Active Protocol: Document 02/21/18 15:33 EA (Rec: 02/21/18 16:00 EA [id number]) Current Condition History of Current Condition Onset Date 12/15/17 Current Complaints Low back pain History of Current Condition Present condition started to re-aggravated 2 months ago with no known reasons/injury. Patient reports chronic localized low back pain more than ten years. Had multiple surgery to left ankle/foot due to infection, TA rupture; had L ACL reconstruction in 2002. MRI reveals Left gluteals tendinosis and hip joint OA. 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 Treatment Goals Patient/Caregiver Goals 1. Improve LLE flexibility and strength 2. Eliminate low back pain Prior Functional Status Baseline Function- ADL's Independent Baseline Function- Mobility Independent Baseline Function- Other Able to to perform floor lift > 30 lbs with no difficulty Current Functional Impairments (Reported) Functional Limitations- ADL's Lifting difficulty, decreased sitting position tolerance Unable to sleep more than 4 hours due to low back pain Personal Factors Other Personal Factors That May Effect Living situation: Patient Therapy/Recovery lives in the boat with low ceiling that requires a lot of trunk bending. PT-OP-C Subjective Start: 02/21/18 15:30 Freq: Status: Active Protocol: Document 02/21/18 15:33 EA (Rec: 02/21/18 16:00 EA [id number]) OP-PT Subjective Patient Comments Patient Comments I would like to get rid of the pain; states unable to sleep more than 3 hours due to pain. Patient Reported Progress Worse Patient Questionnaires Oswestry Low Back Index Oswestry Score 23 Oswestry Impairment 40 to 59% Impaired (Score 40- 59) PT-OP-D Balance Start: 02/21/18 15:30 Freq: Status: Active Protocol: Document 02/21/18 17:36 EA (Rec: 02/21/18 17:36 EA [id number]) OP-PT Balance Assessment Sitting Balance Static Sitting Balance Ability Good Dynamic Sitting Balance Ability Good Standing Balance Static Standing Balance Ability Good Dynamic Standing Balance Ability Good Balance Tests Single Limb Standing Single Limb- Right <3 seconds Single Limb- Left <2 seconds Shepherd Fall Scale Copyright Permission Joao MILLS, Joao RM, Silviano SJ. Development of a scale to identify the fall- prone patient. Can J Aging 1989;8;366-7. Macie Shepherd (2009). Preventing patient falls. (2nd ed). Craig: Shahid. PT-OP-G Mobility & Gait Start: 02/21/18 15:30 Freq: Status: Active Protocol: Document 02/21/18 15:33 EA (Rec: 02/21/18 16:00 EA [id number]) OP Mobility Evaluation Bed Mobility Rolling Indep with difficulty Supine to and from Sit Idenp w/ difficulty OP Gait Assessment Gait Gait Assistance Required: Independent Able to Maintain Weight Bearing Status Yes During Gait Assistive Devices Assistive Device None Factors Limiting Gait Function Factors Limiting Gait Function Decreased Strength Comments Gait Comments Left foot dropped moderately. PT-OP-J Posture/Palpation/Skin Start: 02/21/18 15:30 Freq: Status: Active Protocol: Document 02/21/18 15:33 EA (Rec: 02/21/18 16:00 EA [id number]) Posture Evaluation Position Standing Evaluation View Post/lat Head/C-Spine Posture Forward Head L-Spine Posture Flattened Decreased Lordosis Shoulder Posture (L) Rounded (R) Rounded Scapula Posture (L) Protracted (R) Protracted Pelvis Posture Posterior Tilted Ankle/Foot Posture (L) Forefoot Adducted Toe Posture (L) Clawed Toes (L) Extended Toes Comments Posture Comments Fair posture Palpation Assessment Location Two Palpation Location Tightness to left QL, both multifidus Palpation Findings Soft Tissue Tightness One Palpation Location Grade 2 tenderness to right SI joint, left paraspinals, L QL Palpation Findings Tenderness Palpation Details Grade 2 tenderness to right SI joint, left paraspinals PT-OP-K Range of Motion Start: 02/21/18 15:30 Freq: Status: Active Protocol: Document 02/21/18 15:33 EA (Rec: 02/21/18 16:00 EA [id number]) Lumbar Spine Range of Motion Lumbar Spine Active Percentage Testing Position standing Flexion 100 Extension 50 Rotation Left 75 Rotation Right 75 Lateral Flexion Left 70 Lateral Flexion Right 65 ROM Limitations Soft Tissue Tightness Pain Comments Pain provoked mostly with extension, R sidebending Knee Goniometric Range of Motion Knee Measured in Degrees Left Knee ROM WFL Yes Ankle and Foot Goniometric Range of Motion Ankle and Foot Measured in Degrees Left Passive Ankle/Foot ROM WFL Yes PT-OP-L Special Tests Start: 02/21/18 15:30 Freq: Status: Active Protocol: Document 02/21/18 15:30 EA (Rec: 02/21/18 17:19 EA [id number]) Special Tests Lumbar Spine Special Tests Straight Leg Raise Test Results negative Other- 2 Test Results Sensitive: L sidebend & rotation Comments Posterior quadrant/facets joint Other- 1 Test Results sensitive to right Comments Compression S/L Compression Test Results Neg Comments ant/ supine Hip Special Tests [id number] Test Results Negative PT-OP-M Strength Start: 02/21/18 15:30 Freq: Status: Active Protocol: Document 02/21/18 15:33 EA (Rec: 02/21/18 16:00 EA [id number]) Trunk Strength Trunk Manual Muscle Testing Testing Position sup/prone/sitting Flexion 3 Fair Extension 3 Fair Rotation Left 3 Fair Rotation Right 3 Fair Lateral Flexion Left 3+ Fair+ Lateral Flexion Right 3+ Fair+ Hip Strength Hip Manual Muscle Testing Left Flexion (L2) 4- Good- Extension (S1) 4- Good- Abduction 4- Good- External Rotation 4+ Good+ Internal Rotation 4- Good- Comments RLE are WFL Knee Strength Knee Manual Muscle Testing Left Flexion (S2) 4- Good- Extension (L3) 5 Normal Comments R knee F/E are WFL Ankle/Foot Strength Ankle and Foot Manual Muscle Testing Left Dorsiflexion (L4) 3- Fair- Plantarflexion (S1) 4- Good- Inversion 3- Fair- Eversion (S1) 3- Fair- Comments R ankle DF/PF/INV/EV are WFL Toe Strength Toe Manual Muscle Testing Left Great Toe Flexion 2 Poor Extension 4- Good- Comments Toes 1st to 4th had tendon released due to hammer toes PT-OP-Q Treatments Start: 02/21/18 15:30 Freq: Status: Active Protocol: Document 02/21/18 15:33 EA (Rec: 02/21/18 16:00 EA [id number]) Self-Care/Home Management Treatment Education Patient Education Body Mechanics Posture Safety PT-OP-T Assessment and Plan Start: 02/21/18 15:30 Freq: Status: Active Protocol: Document 02/21/18 15:33 EA (Rec: 02/21/18 16:00 EA [id number]) Physical Therapy Assessment Rehab Potential Rehabilitation Potential Fair Evaluation Complexity Number of Personal Factors/Comorbidities 1-2 Number of Body Systems Impaired 3 Clinical Presentation at Evaluation Evolving Impairments Impairments Activity Tolerance Balance Gait Pain Posture ROM Soft Tissue Mobility Strength Other Concerns Barriers to Rehabilitation Chronicity of the condition. Goals Five Impairment Impaired ankle strength Custodial Goal (LTG) Patient will increase Ankle strength to decrease gait abnormality LTG Duration 4 wks Four Impairment Impaired lifting ability Custodial Goal (LTG) Patient will increase lifting ability to more than 30 lbs with proper body mechanics with no increase in back symptoms LTG Duration 4 wks Three Impairment Impaired Lumbosacral ROM Community Organizer Goal (LTG) Patient will improve lumbosacral ROM to normal range LTG Duration 4 wks Two Impairment Impaired Trunk strength Community Organizer Goal (LTG) Patient will increase trunk strength to 4-/5 to decrease muscular imbalance and improve functional mobility LTG Duration 4 wks One Impairment Oswestry Impairment score of 23/50 Custodial Goal (LTG) Patient will have Oswestry impairment scale score of 10/ 50 LTG Duration 4 wks Assessment Summary Assessment Pleasant 67 y/o male patient with referring diagnosis of low back pain, left gluteal tendinosis, and L hip OA, presented today with fair/poor lumbar posture with LOM of lumbar spinal ROM, weakness to trunk musculature and tenderness to left paralumbars and R SI joint. Tests reveals negative with lumbar radiculopathy, however, sensitive to right SI joint and both lumbar facets dysfunction. Patient body dysfunction limits his ability to perform ADL's particularly task that requires sitting and lying position. Patient would benefit with skilled PT to address the aforementioned issues. Patient is a good candidate for skilled PT. Physical Therapy Plan Frequency and Duration Frequency of Treatment 2x/Week Plan of Care Start Date 02/21/18 Plan of Care End Date 04/18/18 Therapeutic Interventions Therapeutic Interventions Home Exercise Program Joint Mobilizations Neuromuscular Re-education Patient/Caregiver Education Self-Care/Home Management Soft Tissue Mobilization Therapeutic Exercises Modalities Cold Pack/Ice Massage Electric Stimulation Hot Packs Infrared Therapy Ultrasound Next Visit Focus/Plan Next Note Type Treatment Note Next Visit Plan Decrease pain, flexibility, HEP
--- NOTE | 2018-02-21 17:00 | PT.OPPOC ---
Current Diagnoses Unilateral primary osteoarthritis, left hip (02/21/18) Low back pain (02/21/18) Gluteal tendinitis, left hip (02/21/18) Provider Visit Care Team Role Provider Type Natasha Carrasco PA-C Attending Provider Advanced Hvac Journeyman Family Provider Primary Care Provider Specialty: Medical Address: [address] [place] [address], [id number] Email: [email or web address] Plan Of Care PT-OP-T Assessment and Plan Start: 02/21/18 15:30 Freq: Status: Active Protocol: Document 02/21/18 15:33 EA (Rec: 02/21/18 16:00 EA [id number]) Physical Therapy Assessment Rehab Potential Rehabilitation Potential Fair Evaluation Complexity Number of Personal Factors/Comorbidities 1-2 Number of Body Systems Impaired 3 Clinical Presentation at Evaluation Evolving Impairments Impairments Activity Tolerance Balance Gait Pain Posture ROM Soft Tissue Mobility Strength Other Concerns Barriers to Rehabilitation Chronicity of the condition. Goals Five Impairment Impaired ankle strength Industrial Electrician Journeyman Goal (LTG) Patient will increase Ankle strength to decrease gait abnormality LTG Duration 4 wks Four Impairment Impaired lifting ability Half-Way Goal (LTG) Patient will increase lifting ability to more than 30 lbs with proper body mechanics with no increase in back symptoms LTG Duration 4 wks Three Impairment Impaired Lumbosacral ROM Half-Way Goal (LTG) Patient will improve lumbosacral ROM to normal range LTG Duration 4 wks Two Impairment Impaired Trunk strength Industrial Electrician Journeyman Goal (LTG) Patient will increase trunk strength to 4-/5 to decrease muscular imbalance and improve functional mobility LTG Duration 4 wks One Impairment Oswestry Impairment score of 23/50 Industrial Electrician Journeyman Goal (LTG) Patient will have Oswestry impairment scale score of 10/ 50 LTG Duration 4 wks Assessment Summary Assessment Pleasant 67 y/o male patient with referring diagnosis of low back pain, left gluteal tendinosis, and L hip OA, presented today with fair/poor lumbar posture with LOM of lumbar spinal ROM, weakness to trunk musculature and tenderness to left paralumbars and R SI joint. Tests reveals negative with lumbar radiculopathy, however, sensitive to right SI joint and both lumbar facets dysfunction. Patient body dysfunction limits his ability to perform ADL's particularly task that requires sitting and lying position. Patient would benefit with skilled PT to address the aforementioned issues. Patient is a good candidate for skilled PT. Physical Therapy Plan Frequency and Duration Frequency of Treatment 2x/Week Plan of Care Start Date 02/21/18 Plan of Care End Date 04/18/18 Therapeutic Interventions Therapeutic Interventions Home Exercise Program Joint Mobilizations Neuromuscular Re-education Patient/Caregiver Education Self-Care/Home Management Soft Tissue Mobilization Therapeutic Exercises Modalities Cold Pack/Ice Massage Electric Stimulation Hot Packs Infrared Therapy Ultrasound Next Visit Focus/Plan Next Note Type Treatment Note Next Visit Plan Decrease pain, flexibility, HEP Plan of Care Dates Plan of Care Start Date 02/21/18 Plan of Care End Date 04/18/18 Please Sign and Return: I have reviewed this Plan of Care and certify that the skilled therapy services above are required to meet the patient?s needs. Physician Signature Date Printed Name and Credentials Clinical Instructor Signature Printed Name and Credentials
--- NOTE | 2018-02-23 12:10 | PT.OTN ---
Current Diagnoses Unilateral primary osteoarthritis, left hip (02/23/18) Low back pain (02/23/18) Gluteal tendinitis, left hip (02/23/18) Physical Therapy Treatment Note PT-OP-A Visit Information Start: 02/21/18 15:30 Freq: Status: Active Protocol: Document 02/23/18 12:10 RCC (Rec: 02/23/18 12:39 RCC [id number]) Out-Patient Physical Therapy Visit Information Visit Information Visit Type Treatment Note Visit Start Time 12:00 Visit Stop Time 12:10 Total Visit Minutes 55 Visit Number 2 Number of WOOD CALKER Visits 0 Evaluation Information Evaluation Date 02/21/18 PT-OP-B Current Condition Start: 02/21/18 15:30 Freq: Status: Active Protocol: Document 02/21/18 15:33 EA (Rec: 02/21/18 16:00 EA [id number]) Current Condition History of Current Condition Onset Date 12/15/17 Current Complaints Low back pain History of Current Condition Present condition started to re-aggravated 2 months ago with no known reasons/injury. Patient reports chronic localized low back pain more than ten years. Had multiple surgery to left ankle/foot due to infection, TA rupture; had L ACL reconstruction in 2002. MRI reveals Left gluteals tendinosis and hip joint OA. 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 Treatment Goals Patient/Caregiver Goals 1. Improve LLE flexibility and strength 2. Eliminate low back pain Prior Functional Status Baseline Function- ADL's Independent Baseline Function- Mobility Independent Baseline Function- Other Able to to perform floor lift > 30 lbs with no difficulty Current Functional Impairments (Reported) Functional Limitations- ADL's Lifting difficulty, decreased sitting position tolerance Unable to sleep more than 4 hours due to low back pain Personal Factors Other Personal Factors That May Effect Living situation: Patient Therapy/Recovery lives in the boat with low ceiling that requires a lot of trunk bending. PT-OP-C Subjective Start: 02/21/18 15:30 Freq: Status: Active Protocol: Document 02/23/18 12:10 RCC (Rec: 02/23/18 12:39 RCC [id number]) OP-PT Subjective Patient Comments Patient Comments Pt states that he feels tight today both sides of low back . PT-OP-D Balance Start: 02/21/18 15:30 Freq: Status: Active Protocol: Document 02/21/18 17:36 EA (Rec: 02/21/18 17:36 EA [id number]) OP-PT Balance Assessment Sitting Balance Static Sitting Balance Ability Good Dynamic Sitting Balance Ability Good Standing Balance Static Standing Balance Ability Good Dynamic Standing Balance Ability Good Balance Tests Single Limb Standing Single Limb- Right <3 seconds Single Limb- Left <2 seconds Shepherd Fall Scale Copyright Permission Joao JM, Joao RM, Silviano SJ. Development of a scale to identify the fall- prone patient. Can J Aging 1989;8;366-7. Macie Shepherd (2009). Preventing patient falls. (2nd ed). [place]: Shahid. PT-OP-G Mobility & Gait Start: 02/21/18 15:30 Freq: Status: Active Protocol: Document 02/21/18 15:33 EA (Rec: 02/21/18 16:00 EA [id number]) OP Mobility Evaluation Bed Mobility Rolling Indep with difficulty Supine to and from Sit Idenp w/ difficulty OP Gait Assessment Gait Gait Assistance Required: Independent Able to Maintain Weight Bearing Status Yes During Gait Assistive Devices Assistive Device None Factors Limiting Gait Function Factors Limiting Gait Function Decreased Strength Comments Gait Comments Left foot dropped moderately. PT-OP-J Posture/Palpation/Skin Start: 02/21/18 15:30 Freq: Status: Active Protocol: Document 02/21/18 15:33 EA (Rec: 02/21/18 16:00 EA [id number]) Posture Evaluation Position Standing Evaluation View Post/lat Head/C-Spine Posture Forward Head L-Spine Posture Flattened Decreased Lordosis Shoulder Posture (L) Rounded (R) Rounded Scapula Posture (L) Protracted (R) Protracted Pelvis Posture Posterior Tilted Ankle/Foot Posture (L) Forefoot Adducted Toe Posture (L) Clawed Toes (L) Extended Toes Comments Posture Comments Fair posture Palpation Assessment Location Two Palpation Location Tightness to left QL, both multifidus Palpation Findings Soft Tissue Tightness One Palpation Location Grade 2 tenderness to right SI joint, left paraspinals, L QL Palpation Findings Tenderness Palpation Details Grade 2 tenderness to right SI joint, left paraspinals PT-OP-K Range of Motion Start: 02/21/18 15:30 Freq: Status: Active Protocol: Document 02/21/18 15:33 EA (Rec: 02/21/18 16:00 EA [id number]) Lumbar Spine Range of Motion Lumbar Spine Active Percentage Testing Position standing Flexion 100 Extension 50 Rotation Left 75 Rotation Right 75 Lateral Flexion Left 70 Lateral Flexion Right 65 ROM Limitations Soft Tissue Tightness Pain Comments Pain provoked mostly with extension, R sidebending Knee Goniometric Range of Motion Knee Measured in Degrees Left Knee ROM WFL Yes Ankle and Foot Goniometric Range of Motion Ankle and Foot Measured in Degrees Left Passive Ankle/Foot ROM WFL Yes PT-OP-L Special Tests Start: 02/21/18 15:30 Freq: Status: Active Protocol: Document 02/21/18 15:30 EA (Rec: 02/21/18 17:19 EA [id number]) Special Tests Lumbar Spine Special Tests Straight Leg Raise Test Results negative Other- 2 Test Results Sensitive: L sidebend & rotation Comments Posterior quadrant/facets joint Other- 1 Test Results sensitive to right Comments Compression S/L Compression Test Results Neg Comments ant/ supine Hip Special Tests DEEPAK Test Results Negative PT-OP-M Strength Start: 02/21/18 15:30 Freq: Status: Active Protocol: Document 02/21/18 15:33 EA (Rec: 02/21/18 16:00 EA [id number]) Trunk Strength Trunk Manual Muscle Testing Testing Position sup/prone/sitting Flexion 3 Fair Extension 3 Fair Rotation Left 3 Fair Rotation Right 3 Fair Lateral Flexion Left 3+ Fair+ Lateral Flexion Right 3+ Fair+ Hip Strength Hip Manual Muscle Testing Left Flexion (L2) 4- Good- Extension (S1) 4- Good- Abduction 4- Good- External Rotation 4+ Good+ Internal Rotation 4- Good- Comments RLE are WFL Knee Strength Knee Manual Muscle Testing Left Flexion (S2) 4- Good- Extension (L3) 5 Normal Comments R knee F/E are WFL Ankle/Foot Strength Ankle and Foot Manual Muscle Testing Left Dorsiflexion (L4) 3- Fair- Plantarflexion (S1) 4- Good- Inversion 3- Fair- Eversion (S1) 3- Fair- Comments R ankle DF/PF/INV/EV are WFL Toe Strength Toe Manual Muscle Testing Left Great Toe Flexion 2 Poor Extension 4- Good- Comments Toes 1st to 4th had tendon released due to hammer toes PT-OP-Q Treatments Start: 02/21/18 15:30 Freq: Status: Active Protocol: Document 02/23/18 12:10 RCC (Rec: 02/23/18 12:39 RCC [email or web address]) Therapeutic Exercises Supine Exercises bridging Side bilateral LTR Supine Exercise Name lower trunk rotation Side bilateral Transverse Abdominal Supine Exercise Name TrAb activation Side bilateral Reps/Minutes 10x5 sec hold Manual Therapy Treatment Soft Tissue Mobilization 1 Body Location B QL, paraspinals Mobilization Type Strumming Intensity/Depth Moderate Body Position Sidelying Manual Traction Lumbar Details bilateral with belt Body Position Hooklying Reps/Duration 12 min Manual Techniques 1 Type MET- to correct R posterior ilial rotation Body Position Hooklying PT-OP-R Modalities Start: 02/21/18 15:30 Freq: Status: Active Protocol: Document 02/23/18 12:10 RCC (Rec: 02/23/18 12:39 RCC [email or web address]) Electric Stimulation Electric Stimulation Interferential Current (IFC) Body Location low back Duration (Minutes) 15 Patient Position Prone Combined With Heat/Cold Hot Pack PT-OP-T Assessment and Plan Start: 02/21/18 15:30 Freq: Status: Active Protocol: Document 02/23/18 12:10 RCC (Rec: 02/23/18 12:39 [facility] [id number]) Physical Therapy Assessment Assessment Summary Assessment Pt required increased time to transverse abdominal activation, including verbal and tactile cuing. Bilateral QL tension today, with impaired standing posture. Pt with R posterior ilial rotation, corrected with MET. Physical Therapy Plan Frequency and Duration Frequency of Treatment 2x/Week Plan of Care Start Date 02/21/18 Plan of Care End Date 04/18/18 Next Visit Focus/Plan Next Note Type Treatment Note Next Visit Plan core stabilization exercises
--- NOTE | 2018-02-27 16:14 | PT.OTN ---
Current Diagnoses Unilateral primary osteoarthritis, left hip (02/27/18) Low back pain (02/27/18) Gluteal tendinitis, left hip (02/27/18) Physical Therapy Treatment Note PT-OP-A Visit Information Start: 02/21/18 15:30 Freq: Status: Active Protocol: Document 02/27/18 16:04 EA (Rec: 02/27/18 16:14 EA [id number]) Out-Patient Physical Therapy Visit Information Visit Information Visit Type Treatment Note Visit Start Time 14:30 Visit Stop Time 15:25 Total Visit Minutes 55 Visit Number 3 Number of SOCIAL MEDIA CONTENT MANAGER Visits 0 PT-OP-B Current Condition Start: 02/21/18 15:30 Freq: Status: Active Protocol: Document 02/21/18 15:33 EA (Rec: 02/21/18 16:00 EA [id number]) Current Condition History of Current Condition Onset Date 12/15/17 Current Complaints Low back pain History of Current Condition Present condition started to re-aggravated 2 months ago with no known reasons/injury. Patient reports chronic localized low back pain more than ten years. Had multiple surgery to left ankle/foot due to infection, TA rupture; had L ACL reconstruction in 2002. MRI reveals Left gluteals tendinosis and hip joint OA. 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 Treatment Goals Patient/Caregiver Goals 1. Improve LLE flexibility and strength 2. Eliminate low back pain Prior Functional Status Baseline Function- ADL's Independent Baseline Function- Mobility Independent Baseline Function- Other Able to to perform floor lift > 30 lbs with no difficulty Current Functional Impairments (Reported) Functional Limitations- ADL's Lifting difficulty, decreased sitting position tolerance Unable to sleep more than 4 hours due to low back pain Personal Factors Other Personal Factors That May Effect Living situation: Patient Therapy/Recovery lives in the boat with low ceiling that requires a lot of trunk bending. PT-OP-C Subjective Start: 02/21/18 15:30 Freq: Status: Active Protocol: Document 02/27/18 16:04 EA (Rec: 02/27/18 16:14 EA [id number]) OP-PT Subjective Patient Comments Patient Comments Pt reports both hip are sore after last session but low back is much feeling better. Pt also reports deshawn he was tripped and fell on left knees last week; denies broken bones but left knee skin scrapes. PT-OP-D Balance Start: 02/21/18 15:30 Freq: Status: Active Protocol: Document 02/21/18 17:36 EA (Rec: 02/21/18 17:36 EA [id number]) OP-PT Balance Assessment Sitting Balance Static Sitting Balance Ability Good Dynamic Sitting Balance Ability Good Standing Balance Static Standing Balance Ability Good Dynamic Standing Balance Ability Good Balance Tests Single Limb Standing Single Limb- Right <3 seconds Single Limb- Left <2 seconds Shepherd Fall Scale Copyright Permission Joao JM, Joao RM, Silviano SJ. Development of a scale to identify the fall- prone patient. Can J Aging 1989;8;366-7. Macie Shepherd (2009). Preventing patient falls. (2nd ed). [place]: Shahid. PT-OP-G Mobility & Gait Start: 02/21/18 15:30 Freq: Status: Active Protocol: Document 02/21/18 15:33 EA (Rec: 02/21/18 16:00 EA [id number]) OP Mobility Evaluation Bed Mobility Rolling Indep with difficulty Supine to and from Sit Idenp w/ difficulty OP Gait Assessment Gait Gait Assistance Required: Independent Able to Maintain Weight Bearing Status Yes During Gait Assistive Devices Assistive Device None Factors Limiting Gait Function Factors Limiting Gait Function Decreased Strength Comments Gait Comments Left foot dropped moderately. PT-OP-J Posture/Palpation/Skin Start: 02/21/18 15:30 Freq: Status: Active Protocol: Document 02/21/18 15:33 EA (Rec: 02/21/18 16:00 EA [id number]) Posture Evaluation Position Standing Evaluation View Post/lat Head/C-Spine Posture Forward Head L-Spine Posture Flattened Decreased Lordosis Shoulder Posture (L) Rounded (R) Rounded Scapula Posture (L) Protracted (R) Protracted Pelvis Posture Posterior Tilted Ankle/Foot Posture (L) Forefoot Adducted Toe Posture (L) Clawed Toes (L) Extended Toes Comments Posture Comments Fair posture Palpation Assessment Location Two Palpation Location Tightness to left QL, both multifidus Palpation Findings Soft Tissue Tightness One Palpation Location Grade 2 tenderness to right SI joint, left paraspinals, L QL Palpation Findings Tenderness Palpation Details Grade 2 tenderness to right SI joint, left paraspinals PT-OP-K Range of Motion Start: 02/21/18 15:30 Freq: Status: Active Protocol: Document 02/21/18 15:33 EA (Rec: 02/21/18 16:00 EA [id number]) Lumbar Spine Range of Motion Lumbar Spine Active Percentage Testing Position standing Flexion 100 Extension 50 Rotation Left 75 Rotation Right 75 Lateral Flexion Left 70 Lateral Flexion Right 65 ROM Limitations Soft Tissue Tightness Pain Comments Pain provoked mostly with extension, R sidebending Knee Goniometric Range of Motion Knee Measured in Degrees Left Knee ROM WFL Yes Ankle and Foot Goniometric Range of Motion Ankle and Foot Measured in Degrees Left Passive Ankle/Foot ROM WFL Yes PT-OP-L Special Tests Start: 02/21/18 15:30 Freq: Status: Active Protocol: Document 02/21/18 15:30 EA (Rec: 02/21/18 17:19 EA [id number]) Special Tests Lumbar Spine Special Tests Straight Leg Raise Test Results negative Other- 2 Test Results Sensitive: L sidebend & rotation Comments Posterior quadrant/facets joint Other- 1 Test Results sensitive to right Comments Compression S/L Compression Test Results Neg Comments ant/ supine Hip Special Tests DEEPAK Test Results Negative PT-OP-M Strength Start: 02/21/18 15:30 Freq: Status: Active Protocol: Document 02/21/18 15:33 EA (Rec: 02/21/18 16:00 EA [id number]) Trunk Strength Trunk Manual Muscle Testing Testing Position sup/prone/sitting Flexion 3 Fair Extension 3 Fair Rotation Left 3 Fair Rotation Right 3 Fair Lateral Flexion Left 3+ Fair+ Lateral Flexion Right 3+ Fair+ Hip Strength Hip Manual Muscle Testing Left Flexion (L2) 4- Good- Extension (S1) 4- Good- Abduction 4- Good- External Rotation 4+ Good+ Internal Rotation 4- Good- Comments RLE are WFL Knee Strength Knee Manual Muscle Testing Left Flexion (S2) 4- Good- Extension (L3) 5 Normal Comments R knee F/E are WFL Ankle/Foot Strength Ankle and Foot Manual Muscle Testing Left Dorsiflexion (L4) 3- Fair- Plantarflexion (S1) 4- Good- Inversion 3- Fair- Eversion (S1) 3- Fair- Comments R ankle DF/PF/INV/EV are WFL Toe Strength Toe Manual Muscle Testing Left Great Toe Flexion 2 Poor Extension 4- Good- Comments Toes 1st to 4th had tendon released due to hammer toes PT-OP-Q Treatments Start: 02/21/18 15:30 Freq: Status: Active Protocol: Document 02/27/18 16:04 EA (Rec: 02/27/18 16:14 EA [id number]) Cardio Equipment Recumbent Stepper (Sci-Fit) Duration (Minutes) 5 Resistance 2 Seat Position 14 Therapeutic Exercises Supine Exercises 3 Supine Exercise Name TrA activation with marching Reps/Minutes x 10 reps x 2 sets 2 Supine Exercise Name PPT with SLR Reps/Minutes x 10 reps x 2 sets 1 Supine Exercise Name Partial sit up Reps/Minutes x 5 SH x 5 reps bridging Side bilateral LTR Supine Exercise Name lower trunk rotation Side bilateral Transverse Abdominal Supine Exercise Name TrAb activation Side bilateral Reps/Minutes 10x5 sec hold Manual Therapy Treatment Soft Tissue Mobilization 1 Body Location B QL, paraspinals Mobilization Type Strumming Intensity/Depth Moderate Body Position Sidelying PT-OP-R Modalities Start: 02/21/18 15:30 Freq: Status: Active Protocol: Document 02/27/18 16:04 EA (Rec: 02/27/18 16:14 EA [id number]) Electric Stimulation Electric Stimulation Interferential Current (IFC) Body Location low back Duration (Minutes) 15 Patient Position Prone Combined With Heat/Cold Hot Pack PT-OP-T Assessment and Plan Start: 02/21/18 15:30 Freq: Status: Active Protocol: Document 02/27/18 16:04 EA (Rec: 02/27/18 16:14 EA [id number]) Physical Therapy Assessment Assessment Summary Assessment Pt was nauseated during transition from supine to prone which required to sit up until it subsides. Pt tried supine position during EStim but both hip pain/discomfort increased. Semi prone position was tolerated. BP was high during bed mobility which maybe due to pain. Patient also requires constant cues to not hold his breath with supine exercises. Physical Therapy Plan Next Visit Focus/Plan Next Note Type Treatment Note Next Visit Plan core stabilization exercises
--- NOTE | 2018-03-01 15:16 | PT.OTN ---
Current Diagnoses Unilateral primary osteoarthritis, left hip (03/01/18) Low back pain (03/01/18) Gluteal tendinitis, left hip (03/01/18) Physical Therapy Treatment Note PT-OP-A Visit Information Start: 02/21/18 15:30 Freq: Status: Active Protocol: Document 03/01/18 09:51 EA (Rec: 03/01/18 09:51 EA [id number]) Out-Patient Physical Therapy Visit Information Visit Information Visit Type Treatment Note Visit Start Time 09:00 Visit Stop Time 09:45 Total Visit Minutes 45 Visit Number 4 Number of TITLE AGENT Visits 0 PT-OP-B Current Condition Start: 02/21/18 15:30 Freq: Status: Active Protocol: Document 02/21/18 15:33 EA (Rec: 02/21/18 16:00 EA [id number]) Current Condition History of Current Condition Onset Date 12/15/17 Current Complaints Low back pain History of Current Condition Present condition started to re-aggravated 2 months ago with no known reasons/injury. Patient reports chronic localized low back pain more than ten years. Had multiple surgery to left ankle/foot due to infection, TA rupture; had L ACL reconstruction in 2002. MRI reveals Left gluteals tendinosis and hip joint OA. 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 Treatment Goals Patient/Caregiver Goals 1. Improve LLE flexibility and strength 2. Eliminate low back pain Prior Functional Status Baseline Function- ADL's Independent Baseline Function- Mobility Independent Baseline Function- Other Able to to perform floor lift > 30 lbs with no difficulty Current Functional Impairments (Reported) Functional Limitations- ADL's Lifting difficulty, decreased sitting position tolerance Unable to sleep more than 4 hours due to low back pain Personal Factors Other Personal Factors That May Effect Living situation: Patient Therapy/Recovery lives in the boat with low ceiling that requires a lot of trunk bending. PT-OP-C Subjective Start: 02/21/18 15:30 Freq: Status: Active Protocol: Document 03/01/18 09:00 EA (Rec: 03/01/18 09:50 EA [id number]) OP-PT Subjective Patient Comments Patient Comments Pt asked if therapy can focus on stretching on both legs as he has difficulty placing his foot orthotics; states LE stiffness could be the reason of his 2 falls. PT-OP-D Balance Start: 02/21/18 15:30 Freq: Status: Active Protocol: Document 02/21/18 17:36 EA (Rec: 02/21/18 17:36 EA [id number]) OP-PT Balance Assessment Sitting Balance Static Sitting Balance Ability Good Dynamic Sitting Balance Ability Good Standing Balance Static Standing Balance Ability Good Dynamic Standing Balance Ability Good Balance Tests Single Limb Standing Single Limb- Right <3 seconds Single Limb- Left <2 seconds Joao Fall Scale Copyright Permission Joao JM, Joao RM, Silviano SJ. Development of a scale to identify the fall- prone patient. Can J Aging 1989;8;366-7. Macie Shepherd (2009). Preventing patient falls. (2nd ed). [place]: Shahid. PT-OP-G Mobility & Gait Start: 02/21/18 15:30 Freq: Status: Active Protocol: Document 02/21/18 15:33 EA (Rec: 02/21/18 16:00 EA [id number]) OP Mobility Evaluation Bed Mobility Rolling Indep with difficulty Supine to and from Sit Idenp w/ difficulty OP Gait Assessment Gait Gait Assistance Required: Independent Able to Maintain Weight Bearing Status Yes During Gait Assistive Devices Assistive Device None Factors Limiting Gait Function Factors Limiting Gait Function Decreased Strength Comments Gait Comments Left foot dropped moderately. PT-OP-J Posture/Palpation/Skin Start: 02/21/18 15:30 Freq: Status: Active Protocol: Document 02/21/18 15:33 EA (Rec: 02/21/18 16:00 EA [id number]) Posture Evaluation Position Standing Evaluation View Post/lat Head/C-Spine Posture Forward Head L-Spine Posture Flattened Decreased Lordosis Shoulder Posture (L) Rounded (R) Rounded Scapula Posture (L) Protracted (R) Protracted Pelvis Posture Posterior Tilted Ankle/Foot Posture (L) Forefoot Adducted Toe Posture (L) Clawed Toes (L) Extended Toes Comments Posture Comments Fair posture Palpation Assessment Location Two Palpation Location Tightness to left QL, both multifidus Palpation Findings Soft Tissue Tightness One Palpation Location Grade 2 tenderness to right SI joint, left paraspinals, L QL Palpation Findings Tenderness Palpation Details Grade 2 tenderness to right SI joint, left paraspinals PT-OP-K Range of Motion Start: 02/21/18 15:30 Freq: Status: Active Protocol: Document 02/21/18 15:33 EA (Rec: 02/21/18 16:00 EA [id number]) Lumbar Spine Range of Motion Lumbar Spine Active Percentage Testing Position standing Flexion 100 Extension 50 Rotation Left 75 Rotation Right 75 Lateral Flexion Left 70 Lateral Flexion Right 65 ROM Limitations Soft Tissue Tightness Pain Comments Pain provoked mostly with extension, R sidebending Knee Goniometric Range of Motion Knee Measured in Degrees Left Knee ROM WFL Yes Ankle and Foot Goniometric Range of Motion Ankle and Foot Measured in Degrees Left Passive Ankle/Foot ROM WFL Yes PT-OP-L Special Tests Start: 02/21/18 15:30 Freq: Status: Active Protocol: Document 02/21/18 15:30 EA (Rec: 02/21/18 17:19 EA [id number]) Special Tests Lumbar Spine Special Tests Straight Leg Raise Test Results negative Other- 2 Test Results Sensitive: L sidebend & rotation Comments Posterior quadrant/facets joint Other- 1 Test Results sensitive to right Comments Compression S/L Compression Test Results Neg Comments ant/ supine Hip Special Tests DEEPAK Test Results Negative PT-OP-M Strength Start: 02/21/18 15:30 Freq: Status: Active Protocol: Document 02/21/18 15:33 EA (Rec: 02/21/18 16:00 EA [id number]) Trunk Strength Trunk Manual Muscle Testing Testing Position sup/prone/sitting Flexion 3 Fair Extension 3 Fair Rotation Left 3 Fair Rotation Right 3 Fair Lateral Flexion Left 3+ Fair+ Lateral Flexion Right 3+ Fair+ Hip Strength Hip Manual Muscle Testing Left Flexion (L2) 4- Good- Extension (S1) 4- Good- Abduction 4- Good- External Rotation 4+ Good+ Internal Rotation 4- Good- Comments RLE are WFL Knee Strength Knee Manual Muscle Testing Left Flexion (S2) 4- Good- Extension (L3) 5 Normal Comments R knee F/E are WFL Ankle/Foot Strength Ankle and Foot Manual Muscle Testing Left Dorsiflexion (L4) 3- Fair- Plantarflexion (S1) 4- Good- Inversion 3- Fair- Eversion (S1) 3- Fair- Comments R ankle DF/PF/INV/EV are WFL Toe Strength Toe Manual Muscle Testing Left Great Toe Flexion 2 Poor Extension 4- Good- Comments Toes 1st to 4th had tendon released due to hammer toes PT-OP-Q Treatments Start: 02/21/18 15:30 Freq: Status: Active Protocol: Document 03/01/18 09:00 EA (Rec: 03/01/18 09:50 EA [id number]) Cardio Equipment Recumbent Stepper (Sci-Fit) Duration (Minutes) 7 Resistance 2 Seat Position 14 Therapeutic Exercises Supine Exercises 8 Supine Exercise Name Hamstring stretch Comments passive 7 Supine Exercise Name Low trun rotation stretch Comments Passive 6 Supine Exercise Name Hip ER stretch Comments Passive 5 Supine Exercise Name DKTC Reps/Minutes x 30SH x 3 reps Comments Manual assist 4 Supine Exercise Name SKTC Reps/Minutes x 30 SH x 3 reps each Comments Manual assist Sidelying Exercises 2 Sidelying Exercise Name clamshell Reps/Minutes x 15 reps 1 Sidelying Exercise Name Hip flexor and IT band stretch Side bilateral Reps/Minutes x 30sh x 3 reps each Comments Passive Manual Therapy Treatment Soft Tissue Mobilization 1 Body Location B QL, paraspinals Mobilization Type Strumming Intensity/Depth Moderate Body Position Sidelying PT-OP-R Modalities Start: 02/21/18 15:30 Freq: Status: Active Protocol: Document 03/01/18 09:00 EA (Rec: 03/01/18 09:50 EA [id number]) Electric Stimulation Electric Stimulation Interferential Current (IFC) Body Location low back Duration (Minutes) 15 Patient Position Prone Combined With Heat/Cold Hot Pack PT-OP-T Assessment and Plan Start: 02/21/18 15:30 Freq: Status: Active Protocol: Document 03/01/18 09:00 EA (Rec: 03/01/18 09:50 EA [id number]) Physical Therapy Assessment Assessment Summary Assessment Patient tolerated treatment well ; patient feels symptoms relief after passive stretch and manual therapy. Physical Therapy Plan Next Visit Focus/Plan Next Note Type Treatment Note Next Visit Plan Cont with current plan.
--- NOTE | 2018-03-05 12:15 | PT.OTN ---
Current Diagnoses Unilateral primary osteoarthritis, left hip (03/05/18) Low back pain (03/05/18) Gluteal tendinitis, left hip (03/05/18) Physical Therapy Treatment Note PT-OP-A Visit Information Start: 02/21/18 15:30 Freq: Status: Active Protocol: Document 03/05/18 10:34 EA (Rec: 03/05/18 11:12 EA [id number]) Out-Patient Physical Therapy Visit Information Visit Information Visit Type Treatment Note Visit Start Time 10:30 Visit Stop Time 11:15 Total Visit Minutes 45 Visit Number 5 Number of SLOT SHIFT MANAGER Visits 0 PT-OP-B Current Condition Start: 02/21/18 15:30 Freq: Status: Active Protocol: Document 02/21/18 15:33 EA (Rec: 02/21/18 16:00 EA [id number]) Current Condition History of Current Condition Onset Date 12/15/17 Current Complaints Low back pain History of Current Condition Present condition started to re-aggravated 2 months ago with no known reasons/injury. Patient reports chronic localized low back pain more than ten years. Had multiple surgery to left ankle/foot due to infection, TA rupture; had L ACL reconstruction in 2002. MRI reveals Left gluteals tendinosis and hip joint OA. 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 Treatment Goals Patient/Caregiver Goals 1. Improve LLE flexibility and strength 2. Eliminate low back pain Prior Functional Status Baseline Function- ADL's Independent Baseline Function- Mobility Independent Baseline Function- Other Able to to perform floor lift > 30 lbs with no difficulty Current Functional Impairments (Reported) Functional Limitations- ADL's Lifting difficulty, decreased sitting position tolerance Unable to sleep more than 4 hours due to low back pain Personal Factors Other Personal Factors That May Effect Living situation: Patient Therapy/Recovery lives in the boat with low ceiling that requires a lot of trunk bending. PT-OP-C Subjective Start: 02/21/18 15:30 Freq: Status: Active Protocol: Document 03/05/18 10:34 EA (Rec: 03/05/18 11:12 EA [id number]) OP-PT Subjective Patient Comments Patient Comments Pt reports last session improved the symptoms; states doctors suggested 3x a weeks of PT and he feels it will improve him more. Overall he is proving and cant wait to get back to work and as well riding his bicycle. PT-OP-D Balance Start: 02/21/18 15:30 Freq: Status: Active Protocol: Document 02/21/18 17:36 EA (Rec: 02/21/18 17:36 EA [id number]) OP-PT Balance Assessment Sitting Balance Static Sitting Balance Ability Good Dynamic Sitting Balance Ability Good Standing Balance Static Standing Balance Ability Good Dynamic Standing Balance Ability Good Balance Tests Single Limb Standing Single Limb- Right <3 seconds Single Limb- Left <2 seconds Shepherd Fall Scale Copyright Permission Joao JM, Joao RM, Silviano SJ. Development of a scale to identify the fall- prone patient. Can J Aging 1989;8;366-7. Macie Shepherd (2009). Preventing patient falls. (2nd ed). [place]: Shahid. PT-OP-G Mobility & Gait Start: 02/21/18 15:30 Freq: Status: Active Protocol: Document 02/21/18 15:33 EA (Rec: 02/21/18 16:00 EA [id number]) OP Mobility Evaluation Bed Mobility Rolling Indep with difficulty Supine to and from Sit Idenp w/ difficulty OP Gait Assessment Gait Gait Assistance Required: Independent Able to Maintain Weight Bearing Status Yes During Gait Assistive Devices Assistive Device None Factors Limiting Gait Function Factors Limiting Gait Function Decreased Strength Comments Gait Comments Left foot dropped moderately. PT-OP-J Posture/Palpation/Skin Start: 02/21/18 15:30 Freq: Status: Active Protocol: Document 02/21/18 15:33 EA (Rec: 02/21/18 16:00 EA [id number]) Posture Evaluation Position Standing Evaluation View Post/lat Head/C-Spine Posture Forward Head L-Spine Posture Flattened Decreased Lordosis Shoulder Posture (L) Rounded (R) Rounded Scapula Posture (L) Protracted (R) Protracted Pelvis Posture Posterior Tilted Ankle/Foot Posture (L) Forefoot Adducted Toe Posture (L) Clawed Toes (L) Extended Toes Comments Posture Comments Fair posture Palpation Assessment Location Two Palpation Location Tightness to left QL, both multifidus Palpation Findings Soft Tissue Tightness One Palpation Location Grade 2 tenderness to right SI joint, left paraspinals, L QL Palpation Findings Tenderness Palpation Details Grade 2 tenderness to right SI joint, left paraspinals PT-OP-K Range of Motion Start: 02/21/18 15:30 Freq: Status: Active Protocol: Document 02/21/18 15:33 EA (Rec: 02/21/18 16:00 EA [id number]) Lumbar Spine Range of Motion Lumbar Spine Active Percentage Testing Position standing Flexion 100 Extension 50 Rotation Left 75 Rotation Right 75 Lateral Flexion Left 70 Lateral Flexion Right 65 ROM Limitations Soft Tissue Tightness Pain Comments Pain provoked mostly with extension, R sidebending Knee Goniometric Range of Motion Knee Measured in Degrees Left Knee ROM WFL Yes Ankle and Foot Goniometric Range of Motion Ankle and Foot Measured in Degrees Left Passive Ankle/Foot ROM WFL Yes PT-OP-L Special Tests Start: 02/21/18 15:30 Freq: Status: Active Protocol: Document 02/21/18 15:30 EA (Rec: 02/21/18 17:19 EA [id number]) Special Tests Lumbar Spine Special Tests Straight Leg Raise Test Results negative Other- 2 Test Results Sensitive: L sidebend & rotation Comments Posterior quadrant/facets joint Other- 1 Test Results sensitive to right Comments Compression S/L Compression Test Results Neg Comments ant/ supine Hip Special Tests DEEPAK Test Results Negative PT-OP-M Strength Start: 02/21/18 15:30 Freq: Status: Active Protocol: Document 02/21/18 15:33 EA (Rec: 02/21/18 16:00 EA [id number]) Trunk Strength Trunk Manual Muscle Testing Testing Position sup/prone/sitting Flexion 3 Fair Extension 3 Fair Rotation Left 3 Fair Rotation Right 3 Fair Lateral Flexion Left 3+ Fair+ Lateral Flexion Right 3+ Fair+ Hip Strength Hip Manual Muscle Testing Left Flexion (L2) 4- Good- Extension (S1) 4- Good- Abduction 4- Good- External Rotation 4+ Good+ Internal Rotation 4- Good- Comments RLE are WFL Knee Strength Knee Manual Muscle Testing Left Flexion (S2) 4- Good- Extension (L3) 5 Normal Comments R knee F/E are WFL Ankle/Foot Strength Ankle and Foot Manual Muscle Testing Left Dorsiflexion (L4) 3- Fair- Plantarflexion (S1) 4- Good- Inversion 3- Fair- Eversion (S1) 3- Fair- Comments R ankle DF/PF/INV/EV are WFL Toe Strength Toe Manual Muscle Testing Left Great Toe Flexion 2 Poor Extension 4- Good- Comments Toes 1st to 4th had tendon released due to hammer toes PT-OP-Q Treatments Start: 02/21/18 15:30 Freq: Status: Active Protocol: Document 03/05/18 10:34 EA (Rec: 03/05/18 11:12 EA [id number]) Cardio Equipment Recumbent Stepper (Sci-Fit) Duration (Minutes) 7 Resistance 2 Seat Position 14 Therapeutic Exercises Supine Exercises 8 Supine Exercise Name Hamstring stretch Comments passive 7 Supine Exercise Name Low trun rotation stretch Comments Passive 6 Supine Exercise Name Hip ER stretch Comments Passive 5 Supine Exercise Name DKTC Reps/Minutes x 30SH x 3 reps Comments Manual assist 4 Supine Exercise Name SKTC Reps/Minutes x 30 SH x 3 reps each Comments Manual assist 3 Supine Exercise Name TrA activation with marching Reps/Minutes x 10 reps x 2 sets 2 Supine Exercise Name PPT with SLR Reps/Minutes x 10 reps x 2 sets LTR Supine Exercise Name lower trunk rotation Side bilateral Reps/Minutes x 15SH x 2 reps Comments stretch Sidelying Exercises 2 Sidelying Exercise Name clamshell Reps/Minutes x 15 reps Manual Therapy Treatment Soft Tissue Mobilization 1 Body Location B QL, paraspinals Mobilization Type Strumming Intensity/Depth Moderate Body Position Sidelying PT-OP-R Modalities Start: 02/21/18 15:30 Freq: Status: Active Protocol: Document 03/05/18 10:34 EA (Rec: 03/05/18 11:12 EA [id number]) Electric Stimulation Electric Stimulation Interferential Current (IFC) Body Location low back Duration (Minutes) 15 Patient Position Prone Combined With Heat/Cold Hot Pack PT-OP-T Assessment and Plan Start: 02/21/18 15:30 Freq: Status: Active Protocol: Document 03/05/18 10:34 EA (Rec: 03/05/18 11:12 EA [id number]) Physical Therapy Assessment Assessment Summary Assessment Pt tolerated treatment with addition of abdominal exercises. Cont with current plan. Physical Therapy Plan Next Visit Focus/Plan Next Note Type Treatment Note Next Visit Plan Cont with current plan.
--- NOTE | 2018-03-07 12:14 | PT.OTN ---
Current Diagnoses Unilateral primary osteoarthritis, left hip (03/07/18) Low back pain (03/07/18) Gluteal tendinitis, left hip (03/07/18) Physical Therapy Treatment Note PT-OP-A Visit Information Start: 02/21/18 15:30 Freq: Status: Active Protocol: Document 03/07/18 11:10 EA (Rec: 03/07/18 11:16 EA [id number]) Out-Patient Physical Therapy Visit Information Visit Information Visit Type Treatment Note Visit Start Time 10:30 Visit Stop Time 11:25 Total Visit Minutes 55 Visit Number 6 Number of MANAGER OF CLINICAL Visits 0 PT-OP-B Current Condition Start: 02/21/18 15:30 Freq: Status: Active Protocol: Document 02/21/18 15:33 EA (Rec: 02/21/18 16:00 EA [id number]) Current Condition History of Current Condition Onset Date 12/15/17 Current Complaints Low back pain History of Current Condition Present condition started to re-aggravated 2 months ago with no known reasons/injury. Patient reports chronic localized low back pain more than ten years. Had multiple surgery to left ankle/foot due to infection, TA rupture; had L ACL reconstruction in 2002. MRI reveals Left gluteals tendinosis and hip joint OA. 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 Treatment Goals Patient/Caregiver Goals 1. Improve LLE flexibility and strength 2. Eliminate low back pain Prior Functional Status Baseline Function- ADL's Independent Baseline Function- Mobility Independent Baseline Function- Other Able to to perform floor lift > 30 lbs with no difficulty Current Functional Impairments (Reported) Functional Limitations- ADL's Lifting difficulty, decreased sitting position tolerance Unable to sleep more than 4 hours due to low back pain Personal Factors Other Personal Factors That May Effect Living situation: Patient Therapy/Recovery lives in the boat with low ceiling that requires a lot of trunk bending. PT-OP-C Subjective Start: 02/21/18 15:30 Freq: Status: Active Protocol: Document 03/07/18 11:10 EA (Rec: 03/07/18 11:16 EA [id number]) OP-PT Subjective Patient Comments Patient Comments Pt report low back is improving and he has been active at home doing some lifting and beneding; states he wants to add few more exercises on session today. PT-OP-D Balance Start: 02/21/18 15:30 Freq: Status: Active Protocol: Document 02/21/18 17:36 EA (Rec: 02/21/18 17:36 EA [id number]) OP-PT Balance Assessment Sitting Balance Static Sitting Balance Ability Good Dynamic Sitting Balance Ability Good Standing Balance Static Standing Balance Ability Good Dynamic Standing Balance Ability Good Balance Tests Single Limb Standing Single Limb- Right <3 seconds Single Limb- Left <2 seconds Joao Fall Scale Copyright Permission Joao JM, Joao RM, Silviano SJ. Development of a scale to identify the fall- prone patient. Can J Aging 1989;8;366-7. Macie Shepherd (2009). Preventing patient falls. (2nd ed). [place]: Shahid. PT-OP-G Mobility & Gait Start: 02/21/18 15:30 Freq: Status: Active Protocol: Document 02/21/18 15:33 EA (Rec: 02/21/18 16:00 EA [id number]) OP Mobility Evaluation Bed Mobility Rolling Indep with difficulty Supine to and from Sit Idenp w/ difficulty OP Gait Assessment Gait Gait Assistance Required: Independent Able to Maintain Weight Bearing Status Yes During Gait Assistive Devices Assistive Device None Factors Limiting Gait Function Factors Limiting Gait Function Decreased Strength Comments Gait Comments Left foot dropped moderately. PT-OP-J Posture/Palpation/Skin Start: 02/21/18 15:30 Freq: Status: Active Protocol: Document 02/21/18 15:33 EA (Rec: 02/21/18 16:00 EA [id number]) Posture Evaluation Position Standing Evaluation View Post/lat Head/C-Spine Posture Forward Head L-Spine Posture Flattened Decreased Lordosis Shoulder Posture (L) Rounded (R) Rounded Scapula Posture (L) Protracted (R) Protracted Pelvis Posture Posterior Tilted Ankle/Foot Posture (L) Forefoot Adducted Toe Posture (L) Clawed Toes (L) Extended Toes Comments Posture Comments Fair posture Palpation Assessment Location Two Palpation Location Tightness to left QL, both multifidus Palpation Findings Soft Tissue Tightness One Palpation Location Grade 2 tenderness to right SI joint, left paraspinals, L QL Palpation Findings Tenderness Palpation Details Grade 2 tenderness to right SI joint, left paraspinals PT-OP-K Range of Motion Start: 02/21/18 15:30 Freq: Status: Active Protocol: Document 02/21/18 15:33 EA (Rec: 02/21/18 16:00 EA [id number]) Lumbar Spine Range of Motion Lumbar Spine Active Percentage Testing Position standing Flexion 100 Extension 50 Rotation Left 75 Rotation Right 75 Lateral Flexion Left 70 Lateral Flexion Right 65 ROM Limitations Soft Tissue Tightness Pain Comments Pain provoked mostly with extension, R sidebending Knee Goniometric Range of Motion Knee Measured in Degrees Left Knee ROM WFL Yes Ankle and Foot Goniometric Range of Motion Ankle and Foot Measured in Degrees Left Passive Ankle/Foot ROM WFL Yes PT-OP-L Special Tests Start: 02/21/18 15:30 Freq: Status: Active Protocol: Document 02/21/18 15:30 EA (Rec: 02/21/18 17:19 EA [id number]) Special Tests Lumbar Spine Special Tests Straight Leg Raise Test Results negative Other- 2 Test Results Sensitive: L sidebend & rotation Comments Posterior quadrant/facets joint Other- 1 Test Results sensitive to right Comments Compression S/L Compression Test Results Neg Comments ant/ supine Hip Special Tests DEEPAK Test Results Negative PT-OP-M Strength Start: 02/21/18 15:30 Freq: Status: Active Protocol: Document 02/21/18 15:33 EA (Rec: 02/21/18 16:00 EA [id number]) Trunk Strength Trunk Manual Muscle Testing Testing Position sup/prone/sitting Flexion 3 Fair Extension 3 Fair Rotation Left 3 Fair Rotation Right 3 Fair Lateral Flexion Left 3+ Fair+ Lateral Flexion Right 3+ Fair+ Hip Strength Hip Manual Muscle Testing Left Flexion (L2) 4- Good- Extension (S1) 4- Good- Abduction 4- Good- External Rotation 4+ Good+ Internal Rotation 4- Good- Comments RLE are WFL Knee Strength Knee Manual Muscle Testing Left Flexion (S2) 4- Good- Extension (L3) 5 Normal Comments R knee F/E are WFL Ankle/Foot Strength Ankle and Foot Manual Muscle Testing Left Dorsiflexion (L4) 3- Fair- Plantarflexion (S1) 4- Good- Inversion 3- Fair- Eversion (S1) 3- Fair- Comments R ankle DF/PF/INV/EV are WFL Toe Strength Toe Manual Muscle Testing Left Great Toe Flexion 2 Poor Extension 4- Good- Comments Toes 1st to 4th had tendon released due to hammer toes PT-OP-Q Treatments Start: 02/21/18 15:30 Freq: Status: Active Protocol: Document 03/07/18 11:10 EA (Rec: 03/07/18 11:16 EA [id number]) Cardio Equipment Recumbent Stepper (Sci-Fit) Duration (Minutes) 7 Resistance 2.5 Seat Position 14 Gym Equipment Cable Column (Body Solid) Leg Extension Details double-single leg Reps/Time x 15 reps x 2 sets Therapeutic Exercises Supine Exercises 8 Supine Exercise Name Hamstring stretch Comments passive 7 Supine Exercise Name Low trun rotation stretch Comments Passive 6 Supine Exercise Name Hip ER stretch Comments Passive 5 Supine Exercise Name DKTC Reps/Minutes x 30SH x 3 reps Comments Manual assist 4 Supine Exercise Name SKTC Reps/Minutes x 30 SH x 3 reps each Comments Manual assist 3 Supine Exercise Name TrA activation with marching Reps/Minutes x 10 reps x 2 sets 2 Supine Exercise Name PPT with SLR Reps/Minutes x 10 reps x 2 sets Sidelying Exercises 2 Sidelying Exercise Name clamshell Side left Reps/Minutes x 15 reps 1 Sidelying Exercise Name Hip flexor and IT band stretch Side bilateral Reps/Minutes x 30sh x 3 reps each Comments Passive Standing Exercises 1 Standing Exercise Name Wall squat w/ PPT Reps/Minutes x 5sec hold x 10 reps Manual Therapy Treatment Soft Tissue Mobilization 1 Body Location B QL, paraspinals Mobilization Type Myofascial Release Strumming Sustained Pressure Trigger Point Release Intensity/Depth Moderate Body Position Prone Comments To start with efflleurage PT-OP-R Modalities Start: 02/21/18 15:30 Freq: Status: Active Protocol: Document 03/07/18 11:10 EA (Rec: 03/07/18 11:16 EA [id number]) Electric Stimulation Electric Stimulation Interferential Current (IFC) Body Location low back Duration (Minutes) 15 Patient Position Prone Combined With Heat/Cold Hot Pack PT-OP-T Assessment and Plan Start: 02/21/18 15:30 Freq: Status: Active Protocol: Document 03/07/18 11:10 EA (Rec: 03/07/18 11:16 EA [id number]) Physical Therapy Assessment Assessment Summary Assessment Pt had less tenderness to low back and improved mobility with no discomfort; patient is progressing well. Cont. with current plan. Physical Therapy Plan Next Visit Focus/Plan Next Note Type Treatment Note Next Visit Plan Cont with current plan.
--- NOTE | 2018-03-09 12:31 | PT.OTN ---
Current Diagnoses Unilateral primary osteoarthritis, left hip (03/09/18) Low back pain (03/09/18) Gluteal tendinitis, left hip (03/09/18) Physical Therapy Treatment Note PT-OP-A Visit Information Start: 02/21/18 15:30 Freq: Status: Active Protocol: Document 03/09/18 11:17 LRN (Rec: 03/09/18 12:03 LRN [id number]) Out-Patient Physical Therapy Visit Information Visit Information Visit Type Treatment Note Visit Start Time 11:17 Visit Stop Time 12:12 Total Visit Minutes 55 Visit Number 7 Number of PLATFORM BUILDER Visits 0 PT-OP-B Current Condition Start: 02/21/18 15:30 Freq: Status: Active Protocol: Document 02/21/18 15:33 EA (Rec: 02/21/18 16:00 EA [id number]) Current Condition History of Current Condition Onset Date 12/15/17 Current Complaints Low back pain History of Current Condition Present condition started to re-aggravated 2 months ago with no known reasons/injury. Patient reports chronic localized low back pain more than ten years. Had multiple surgery to left ankle/foot due to infection, TA rupture; had L ACL reconstruction in 2002. MRI reveals Left gluteals tendinosis and hip joint OA. 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 Treatment Goals Patient/Caregiver Goals 1. Improve LLE flexibility and strength 2. Eliminate low back pain Prior Functional Status Baseline Function- ADL's Independent Baseline Function- Mobility Independent Baseline Function- Other Able to to perform floor lift > 30 lbs with no difficulty Current Functional Impairments (Reported) Functional Limitations- ADL's Lifting difficulty, decreased sitting position tolerance Unable to sleep more than 4 hours due to low back pain Personal Factors Other Personal Factors That May Effect Living situation: Patient Therapy/Recovery lives in the boat with low ceiling that requires a lot of trunk bending. PT-OP-C Subjective Start: 02/21/18 15:30 Freq: Status: Active Protocol: Document 03/09/18 11:17 LRN (Rec: 03/09/18 12:09 LRN [id number]) OP-PT Subjective Patient Comments Patient Comments Pain coming in is rated 2-3/10 . No new complaints. PT-OP-D Balance Start: 02/21/18 15:30 Freq: Status: Active Protocol: Document 02/21/18 17:36 EA (Rec: 02/21/18 17:36 EA [id number]) OP-PT Balance Assessment Sitting Balance Static Sitting Balance Ability Good Dynamic Sitting Balance Ability Good Standing Balance Static Standing Balance Ability Good Dynamic Standing Balance Ability Good Balance Tests Single Limb Standing Single Limb- Right <3 seconds Single Limb- Left <2 seconds Joao Fall Scale Copyright Permission Joao JM, Joao RM, Silviano SJ. Development of a scale to identify the fall- prone patient. Can J Aging 1989;8;366-7. Macie Shepherd (2009). Preventing patient falls. (2nd ed). [place]: Shahid. PT-OP-G Mobility & Gait Start: 02/21/18 15:30 Freq: Status: Active Protocol: Document 02/21/18 15:33 EA (Rec: 02/21/18 16:00 EA [id number]) OP Mobility Evaluation Bed Mobility Rolling Indep with difficulty Supine to and from Sit Idenp w/ difficulty OP Gait Assessment Gait Gait Assistance Required: Independent Able to Maintain Weight Bearing Status Yes During Gait Assistive Devices Assistive Device None Factors Limiting Gait Function Factors Limiting Gait Function Decreased Strength Comments Gait Comments Left foot dropped moderately. PT-OP-J Posture/Palpation/Skin Start: 02/21/18 15:30 Freq: Status: Active Protocol: Document 02/21/18 15:33 EA (Rec: 02/21/18 16:00 EA [id number]) Posture Evaluation Position Standing Evaluation View Post/lat Head/C-Spine Posture Forward Head L-Spine Posture Flattened Decreased Lordosis Shoulder Posture (L) Rounded (R) Rounded Scapula Posture (L) Protracted (R) Protracted Pelvis Posture Posterior Tilted Ankle/Foot Posture (L) Forefoot Adducted Toe Posture (L) Clawed Toes (L) Extended Toes Comments Posture Comments Fair posture Palpation Assessment Location Two Palpation Location Tightness to left QL, both multifidus Palpation Findings Soft Tissue Tightness One Palpation Location Grade 2 tenderness to right SI joint, left paraspinals, L QL Palpation Findings Tenderness Palpation Details Grade 2 tenderness to right SI joint, left paraspinals PT-OP-K Range of Motion Start: 02/21/18 15:30 Freq: Status: Active Protocol: Document 02/21/18 15:33 EA (Rec: 02/21/18 16:00 EA [id number]) Lumbar Spine Range of Motion Lumbar Spine Active Percentage Testing Position standing Flexion 100 Extension 50 Rotation Left 75 Rotation Right 75 Lateral Flexion Left 70 Lateral Flexion Right 65 ROM Limitations Soft Tissue Tightness Pain Comments Pain provoked mostly with extension, R sidebending Knee Goniometric Range of Motion Knee Measured in Degrees Left Knee ROM WFL Yes Ankle and Foot Goniometric Range of Motion Ankle and Foot Measured in Degrees Left Passive Ankle/Foot ROM WFL Yes PT-OP-L Special Tests Start: 02/21/18 15:30 Freq: Status: Active Protocol: Document 02/21/18 15:30 EA (Rec: 02/21/18 17:19 EA [id number]) Special Tests Lumbar Spine Special Tests Straight Leg Raise Test Results negative Other- 2 Test Results Sensitive: L sidebend & rotation Comments Posterior quadrant/facets joint Other- 1 Test Results sensitive to right Comments Compression S/L Compression Test Results Neg Comments ant/ supine Hip Special Tests DEEPAK Test Results Negative PT-OP-M Strength Start: 02/21/18 15:30 Freq: Status: Active Protocol: Document 02/21/18 15:33 EA (Rec: 02/21/18 16:00 EA [id number]) Trunk Strength Trunk Manual Muscle Testing Testing Position sup/prone/sitting Flexion 3 Fair Extension 3 Fair Rotation Left 3 Fair Rotation Right 3 Fair Lateral Flexion Left 3+ Fair+ Lateral Flexion Right 3+ Fair+ Hip Strength Hip Manual Muscle Testing Left Flexion (L2) 4- Good- Extension (S1) 4- Good- Abduction 4- Good- External Rotation 4+ Good+ Internal Rotation 4- Good- Comments RLE are WFL Knee Strength Knee Manual Muscle Testing Left Flexion (S2) 4- Good- Extension (L3) 5 Normal Comments R knee F/E are WFL Ankle/Foot Strength Ankle and Foot Manual Muscle Testing Left Dorsiflexion (L4) 3- Fair- Plantarflexion (S1) 4- Good- Inversion 3- Fair- Eversion (S1) 3- Fair- Comments R ankle DF/PF/INV/EV are WFL Toe Strength Toe Manual Muscle Testing Left Great Toe Flexion 2 Poor Extension 4- Good- Comments Toes 1st to 4th had tendon released due to hammer toes PT-OP-Q Treatments Start: 02/21/18 15:30 Freq: Status: Active Protocol: Document 03/09/18 11:17 LRN (Rec: 03/09/18 12:03 LRN [id number]) Cardio Equipment Recumbent Stepper (Sci-Fit) Duration (Minutes) 7 Resistance 3 Seat Position 12 Gym Equipment Cable Column (Body Solid) Leg Extension Details double-single leg Resistance 40#, 20# respectively Reps/Time x 15 reps x 2 sets Double, 9x2 sets Single, Therapeutic Exercises Supine Exercises Hip flexor stretch Side bilateral Comments 60 sec hold stretch 8 Supine Exercise Name Hamstring stretch Comments passive 7 Supine Exercise Name Low trunk rotation stretch Comments Passive Sidelying Exercises 2 Sidelying Exercise Name clamshell Side left Reps/Minutes to fatigue Standing Exercises Gastroc Stretch Side bilateral Equipment Used FOREIGN PT-OP-R Modalities Start: 02/21/18 15:30 Freq: Status: Active Protocol: Document 03/09/18 11:17 LRN (Rec: 03/09/18 12:03 LRN [id number]) Electric Stimulation Electric Stimulation Interferential Current (IFC) Body Location L low back Duration (Minutes) 15 Intensity 34 Patient Position Prone Combined With Heat/Cold Hot Pack Comments Cross @ L SIJ PT-OP-T Assessment and Plan Start: 02/21/18 15:30 Freq: Status: Active Protocol: Document 03/09/18 11:17 LRN (Rec: 03/09/18 12:03 LRN [id number]) Physical Therapy Assessment Assessment Summary Assessment Post therapy pt had improved mobility/flexibility; no change in pain level. Physical Therapy Plan Frequency and Duration Frequency of Treatment 3x/Week Next Visit Focus/Plan Next Note Type Treatment Note Next Visit Plan Cont with current plan. Pt reporting last session treatment times increased to 3x/week.
--- NOTE | 2018-03-12 12:13 | PT.OTN ---
Current Diagnoses Unilateral primary osteoarthritis, left hip (03/12/18) Low back pain (03/12/18) Gluteal tendinitis, left hip (03/12/18) Physical Therapy Treatment Note PT-OP-A Visit Information Start: 02/21/18 15:30 Freq: Status: Active Protocol: Document 03/12/18 09:50 EA (Rec: 03/12/18 09:54 EA [id number]) Out-Patient Physical Therapy Visit Information Visit Information Visit Type Treatment Note Visit Start Time 09:00 Visit Stop Time 09:50 Total Visit Minutes 55 Visit Number 8 Number of ROENTGENOLOGY TEACHER Visits 0 PT-OP-B Current Condition Start: 02/21/18 15:30 Freq: Status: Active Protocol: Document 02/21/18 15:33 EA (Rec: 02/21/18 16:00 EA [id number]) Current Condition History of Current Condition Onset Date 12/15/17 Current Complaints Low back pain History of Current Condition Present condition started to re-aggravated 2 months ago with no known reasons/injury. Patient reports chronic localized low back pain more than ten years. Had multiple surgery to left ankle/foot due to infection, TA rupture; had L ACL reconstruction in 2002. MRI reveals Left gluteals tendinosis and hip joint OA. 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 Treatment Goals Patient/Caregiver Goals 1. Improve LLE flexibility and strength 2. Eliminate low back pain Prior Functional Status Baseline Function- ADL's Independent Baseline Function- Mobility Independent Baseline Function- Other Able to to perform floor lift > 30 lbs with no difficulty Current Functional Impairments (Reported) Functional Limitations- ADL's Lifting difficulty, decreased sitting position tolerance Unable to sleep more than 4 hours due to low back pain Personal Factors Other Personal Factors That May Effect Living situation: Patient Therapy/Recovery lives in the boat with low ceiling that requires a lot of trunk bending. PT-OP-C Subjective Start: 02/21/18 15:30 Freq: Status: Active Protocol: Document 03/12/18 09:50 EA (Rec: 03/12/18 09:54 EA [id number]) OP-PT Subjective Patient Comments Patient Comments Pt reports able to redi his bicycle for > 1 hour; stated low back is quite tight and sore. PT-OP-D Balance Start: 02/21/18 15:30 Freq: Status: Active Protocol: Document 02/21/18 17:36 EA (Rec: 02/21/18 17:36 EA [id number]) OP-PT Balance Assessment Sitting Balance Static Sitting Balance Ability Good Dynamic Sitting Balance Ability Good Standing Balance Static Standing Balance Ability Good Dynamic Standing Balance Ability Good Balance Tests Single Limb Standing Single Limb- Right <3 seconds Single Limb- Left <2 seconds Shepherd Fall Scale Copyright Permission Joao JM, Joao RM, Silviano SJ. Development of a scale to identify the fall- prone patient. Can J Aging 1989;8;366-7. Macie Shepherd (2009). Preventing patient falls. (2nd ed). [place]: Shahid. PT-OP-G Mobility & Gait Start: 02/21/18 15:30 Freq: Status: Active Protocol: Document 02/21/18 15:33 EA (Rec: 02/21/18 16:00 EA [id number]) OP Mobility Evaluation Bed Mobility Rolling Indep with difficulty Supine to and from Sit Idenp w/ difficulty OP Gait Assessment Gait Gait Assistance Required: Independent Able to Maintain Weight Bearing Status Yes During Gait Assistive Devices Assistive Device None Factors Limiting Gait Function Factors Limiting Gait Function Decreased Strength Comments Gait Comments Left foot dropped moderately. PT-OP-J Posture/Palpation/Skin Start: 02/21/18 15:30 Freq: Status: Active Protocol: Document 02/21/18 15:33 EA (Rec: 02/21/18 16:00 EA [id number]) Posture Evaluation Position Standing Evaluation View Post/lat Head/C-Spine Posture Forward Head L-Spine Posture Flattened Decreased Lordosis Shoulder Posture (L) Rounded (R) Rounded Scapula Posture (L) Protracted (R) Protracted Pelvis Posture Posterior Tilted Ankle/Foot Posture (L) Forefoot Adducted Toe Posture (L) Clawed Toes (L) Extended Toes Comments Posture Comments Fair posture Palpation Assessment Location Two Palpation Location Tightness to left QL, both multifidus Palpation Findings Soft Tissue Tightness One Palpation Location Grade 2 tenderness to right SI joint, left paraspinals, L QL Palpation Findings Tenderness Palpation Details Grade 2 tenderness to right SI joint, left paraspinals PT-OP-K Range of Motion Start: 02/21/18 15:30 Freq: Status: Active Protocol: Document 02/21/18 15:33 EA (Rec: 02/21/18 16:00 EA [id number]) Lumbar Spine Range of Motion Lumbar Spine Active Percentage Testing Position standing Flexion 100 Extension 50 Rotation Left 75 Rotation Right 75 Lateral Flexion Left 70 Lateral Flexion Right 65 ROM Limitations Soft Tissue Tightness Pain Comments Pain provoked mostly with extension, R sidebending Knee Goniometric Range of Motion Knee Measured in Degrees Left Knee ROM WFL Yes Ankle and Foot Goniometric Range of Motion Ankle and Foot Measured in Degrees Left Passive Ankle/Foot ROM WFL Yes PT-OP-L Special Tests Start: 02/21/18 15:30 Freq: Status: Active Protocol: Document 02/21/18 15:30 EA (Rec: 02/21/18 17:19 EA [id number]) Special Tests Lumbar Spine Special Tests Straight Leg Raise Test Results negative Other- 2 Test Results Sensitive: L sidebend & rotation Comments Posterior quadrant/facets joint Other- 1 Test Results sensitive to right Comments Compression S/L Compression Test Results Neg Comments ant/ supine Hip Special Tests DEEPAK Test Results Negative PT-OP-M Strength Start: 02/21/18 15:30 Freq: Status: Active Protocol: Document 02/21/18 15:33 EA (Rec: 02/21/18 16:00 EA [id number]) Trunk Strength Trunk Manual Muscle Testing Testing Position sup/prone/sitting Flexion 3 Fair Extension 3 Fair Rotation Left 3 Fair Rotation Right 3 Fair Lateral Flexion Left 3+ Fair+ Lateral Flexion Right 3+ Fair+ Hip Strength Hip Manual Muscle Testing Left Flexion (L2) 4- Good- Extension (S1) 4- Good- Abduction 4- Good- External Rotation 4+ Good+ Internal Rotation 4- Good- Comments RLE are WFL Knee Strength Knee Manual Muscle Testing Left Flexion (S2) 4- Good- Extension (L3) 5 Normal Comments R knee F/E are WFL Ankle/Foot Strength Ankle and Foot Manual Muscle Testing Left Dorsiflexion (L4) 3- Fair- Plantarflexion (S1) 4- Good- Inversion 3- Fair- Eversion (S1) 3- Fair- Comments R ankle DF/PF/INV/EV are WFL Toe Strength Toe Manual Muscle Testing Left Great Toe Flexion 2 Poor Extension 4- Good- Comments Toes 1st to 4th had tendon released due to hammer toes PT-OP-Q Treatments Start: 02/21/18 15:30 Freq: Status: Active Protocol: Document 03/12/18 09:50 EA (Rec: 03/12/18 09:54 EA [id number]) Cardio Equipment Recumbent Stepper (Sci-Fit) Duration (Minutes) 7 Resistance 3 Seat Position 12 Therapeutic Exercises Supine Exercises Hip flexor stretch Side bilateral Comments 60 sec hold stretch 8 Supine Exercise Name Hamstring stretch Comments passive 7 Supine Exercise Name Low trunk rotation stretch Comments Passive 6 Supine Exercise Name Hip ER stretch Comments Passive 5 Supine Exercise Name DKTC Reps/Minutes x 30SH x 3 reps Comments Manual assist 4 Supine Exercise Name SKTC Reps/Minutes x 30 SH x 3 reps each Comments Manual assist 3 Supine Exercise Name TrA activation with marching Reps/Minutes x 10 reps x 2 sets 2 Supine Exercise Name PPT with SLR Reps/Minutes x 10 reps x 2 sets 1 Supine Exercise Name Partial sit up Reps/Minutes x 5 SH x 5 reps bridging Side bilateral LTR Supine Exercise Name lower trunk rotation Side bilateral Reps/Minutes x 15SH x 2 reps Comments stretch Transverse Abdominal Supine Exercise Name TrAb activation Side bilateral Reps/Minutes 10x5 sec hold Sidelying Exercises 2 Sidelying Exercise Name clamshell Side left Reps/Minutes to fatigue 1 Sidelying Exercise Name Hip flexor and IT band stretch Side bilateral Reps/Minutes x 30sh x 3 reps each Comments Passive Standing Exercises Gastroc Stretch Side bilateral Equipment Used FOREIGN 1 Standing Exercise Name Wall squat w/ PPT Reps/Minutes x 5sec hold x 10 reps Manual Therapy Treatment Soft Tissue Mobilization 1 Body Location B QL, paraspinals Mobilization Type Myofascial Release Strumming Sustained Pressure Trigger Point Release Intensity/Depth Moderate Body Position Prone Comments To start with efflleurage PT-OP-R Modalities Start: 02/21/18 15:30 Freq: Status: Active Protocol: Document 03/12/18 10:24 EA (Rec: 03/12/18 10:24 EA [id number]) Electric Stimulation Electric Stimulation Interferential Current (IFC) Body Location L low back Duration (Minutes) 15 Intensity 34 Patient Position Prone Combined With Heat/Cold Hot Pack Comments Cross @ L SIJ PT-OP-T Assessment and Plan Start: 02/21/18 15:30 Freq: Status: Active Protocol: Document 03/12/18 09:50 EA (Rec: 11/12/18 09:54 EA [id number]) Physical Therapy Assessment Assessment Summary Assessment Tolerated treatment well with minor discomfort during therex and manual PT. Patient is progressing well. Physical Therapy Plan Next Visit Focus/Plan Next Note Type Treatment Note Next Visit Plan Cont with current plan.
--- NOTE | 2018-03-14 12:19 | PT.OTN ---
Current Diagnoses Unilateral primary osteoarthritis, left hip (03/14/18) Low back pain (03/14/18) Gluteal tendinitis, left hip (03/14/18) Physical Therapy Treatment Note PT-OP-A Visit Information Start: 02/21/18 15:30 Freq: Status: Active Protocol: Document 03/14/18 12:13 EA (Rec: 03/14/18 12:19 EA [id number]) Out-Patient Physical Therapy Visit Information Visit Information Visit Type Treatment Note Visit Start Time 10:30 Visit Stop Time 11:25 Total Visit Minutes 55 Visit Number 9 Number of DATASTAGE DEVELOPER Visits 0 PT-OP-B Current Condition Start: 02/21/18 15:30 Freq: Status: Active Protocol: Document 02/21/18 15:33 EA (Rec: 02/21/18 16:00 EA [id number]) Current Condition History of Current Condition Onset Date 12/15/17 Current Complaints Low back pain History of Current Condition Present condition started to re-aggravated 2 months ago with no known reasons/injury. Patient reports chronic localized low back pain more than ten years. Had multiple surgery to left ankle/foot due to infection, TA rupture; had L ACL reconstruction in 2002. MRI reveals Left gluteals tendinosis and hip joint OA. 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 Treatment Goals Patient/Caregiver Goals 1. Improve LLE flexibility and strength 2. Eliminate low back pain Prior Functional Status Baseline Function- ADL's Independent Baseline Function- Mobility Independent Baseline Function- Other Able to to perform floor lift > 30 lbs with no difficulty Current Functional Impairments (Reported) Functional Limitations- ADL's Lifting difficulty, decreased sitting position tolerance Unable to sleep more than 4 hours due to low back pain Personal Factors Other Personal Factors That May Effect Living situation: Patient Therapy/Recovery lives in the boat with low ceiling that requires a lot of trunk bending. PT-OP-C Subjective Start: 02/21/18 15:30 Freq: Status: Active Protocol: Document 03/14/18 12:13 EA (Rec: 03/14/18 12:19 EA [id number]) OP-PT Subjective Patient Comments Patient Comments Pt reports that both ant hip pain intensifies in the last few days with no reasons; states low back is feeling much better. PT-OP-D Balance Start: 02/21/18 15:30 Freq: Status: Active Protocol: Document 02/21/18 17:36 EA (Rec: 02/21/18 17:36 EA [id number]) OP-PT Balance Assessment Sitting Balance Static Sitting Balance Ability Good Dynamic Sitting Balance Ability Good Standing Balance Static Standing Balance Ability Good Dynamic Standing Balance Ability Good Balance Tests Single Limb Standing Single Limb- Right <3 seconds Single Limb- Left <2 seconds Joao Fall Scale Copyright Permission Joao JM, Joao RM, Silviano SJ. Development of a scale to identify the fall- prone patient. Can J Aging 1989;8;366-7. Macie Shepherd (2009). Preventing patient falls. (2nd ed). [place]: Shahid. PT-OP-G Mobility & Gait Start: 02/21/18 15:30 Freq: Status: Active Protocol: Document 02/21/18 15:33 EA (Rec: 02/21/18 16:00 EA [id number]) OP Mobility Evaluation Bed Mobility Rolling Indep with difficulty Supine to and from Sit Idenp w/ difficulty OP Gait Assessment Gait Gait Assistance Required: Independent Able to Maintain Weight Bearing Status Yes During Gait Assistive Devices Assistive Device None Factors Limiting Gait Function Factors Limiting Gait Function Decreased Strength Comments Gait Comments Left foot dropped moderately. PT-OP-J Posture/Palpation/Skin Start: 02/21/18 15:30 Freq: Status: Active Protocol: Document 02/21/18 15:33 EA (Rec: 02/21/18 16:00 EA [id number]) Posture Evaluation Position Standing Evaluation View Post/lat Head/C-Spine Posture Forward Head L-Spine Posture Flattened Decreased Lordosis Shoulder Posture (L) Rounded (R) Rounded Scapula Posture (L) Protracted (R) Protracted Pelvis Posture Posterior Tilted Ankle/Foot Posture (L) Forefoot Adducted Toe Posture (L) Clawed Toes (L) Extended Toes Comments Posture Comments Fair posture Palpation Assessment Location Two Palpation Location Tightness to left QL, both multifidus Palpation Findings Soft Tissue Tightness One Palpation Location Grade 2 tenderness to right SI joint, left paraspinals, L QL Palpation Findings Tenderness Palpation Details Grade 2 tenderness to right SI joint, left paraspinals PT-OP-K Range of Motion Start: 02/21/18 15:30 Freq: Status: Active Protocol: Document 02/21/18 15:33 EA (Rec: 02/21/18 16:00 EA [id number]) Lumbar Spine Range of Motion Lumbar Spine Active Percentage Testing Position standing Flexion 100 Extension 50 Rotation Left 75 Rotation Right 75 Lateral Flexion Left 70 Lateral Flexion Right 65 ROM Limitations Soft Tissue Tightness Pain Comments Pain provoked mostly with extension, R sidebending Knee Goniometric Range of Motion Knee Measured in Degrees Left Knee ROM WFL Yes Ankle and Foot Goniometric Range of Motion Ankle and Foot Measured in Degrees Left Passive Ankle/Foot ROM WFL Yes PT-OP-L Special Tests Start: 02/21/18 15:30 Freq: Status: Active Protocol: Document 02/21/18 15:30 EA (Rec: 02/21/18 17:19 EA [id number]) Special Tests Lumbar Spine Special Tests Straight Leg Raise Test Results negative Other- 2 Test Results Sensitive: L sidebend & rotation Comments Posterior quadrant/facets joint Other- 1 Test Results sensitive to right Comments Compression S/L Compression Test Results Neg Comments ant/ supine Hip Special Tests DEEPAK Test Results Negative PT-OP-M Strength Start: 02/21/18 15:30 Freq: Status: Active Protocol: Document 02/21/18 15:33 EA (Rec: 02/21/18 16:00 EA [id number]) Trunk Strength Trunk Manual Muscle Testing Testing Position sup/prone/sitting Flexion 3 Fair Extension 3 Fair Rotation Left 3 Fair Rotation Right 3 Fair Lateral Flexion Left 3+ Fair+ Lateral Flexion Right 3+ Fair+ Hip Strength Hip Manual Muscle Testing Left Flexion (L2) 4- Good- Extension (S1) 4- Good- Abduction 4- Good- External Rotation 4+ Good+ Internal Rotation 4- Good- Comments RLE are WFL Knee Strength Knee Manual Muscle Testing Left Flexion (S2) 4- Good- Extension (L3) 5 Normal Comments R knee F/E are WFL Ankle/Foot Strength Ankle and Foot Manual Muscle Testing Left Dorsiflexion (L4) 3- Fair- Plantarflexion (S1) 4- Good- Inversion 3- Fair- Eversion (S1) 3- Fair- Comments R ankle DF/PF/INV/EV are WFL Toe Strength Toe Manual Muscle Testing Left Great Toe Flexion 2 Poor Extension 4- Good- Comments Toes 1st to 4th had tendon released due to hammer toes PT-OP-Q Treatments Start: 02/21/18 15:30 Freq: Status: Active Protocol: Document 03/14/18 12:13 EA (Rec: 03/14/18 12:19 EA [id number]) Cardio Equipment Recumbent Stepper (Sci-Fit) Duration (Minutes) 7 Resistance 3 Seat Position 12 Gym Equipment Cable Column (Body Solid) Leg Extension Details double-single leg Resistance 40#, 20# respectively Reps/Time x 15 reps x 2 sets Double, 9x2 sets Single, Therapeutic Exercises Supine Exercises 8 Supine Exercise Name Hamstring stretch Comments passive 7 Supine Exercise Name Low trunk rotation stretch Comments Passive 6 Supine Exercise Name Hip ER stretch Comments Passive 5 Supine Exercise Name DKTC Reps/Minutes x 30SH x 3 reps Comments Manual assist 4 Supine Exercise Name SKTC Reps/Minutes x 30 SH x 3 reps each Comments Manual assist 3 Supine Exercise Name TrA activation with marching Reps/Minutes x 10 reps x 2 sets 2 Supine Exercise Name PPT with SLR Reps/Minutes x 10 reps x 2 sets bridging Side bilateral Comments Lv2 TB to hip ABD isomet LTR Supine Exercise Name lower trunk rotation Side bilateral Reps/Minutes x 15SH x 2 reps Comments stretch Sidelying Exercises 2 Sidelying Exercise Name clamshell Side left Reps/Minutes to fatigue 1 Sidelying Exercise Name Hip flexor and IT band stretch Side bilateral Reps/Minutes x 30sh x 3 reps each Comments Passive Standing Exercises 1 Standing Exercise Name Wall squat w/ PPT Reps/Minutes x 5sec hold x 10 reps Manual Therapy Treatment Soft Tissue Mobilization 1 Body Location B QL, paraspinals Mobilization Type Myofascial Release Strumming Sustained Pressure Trigger Point Release Intensity/Depth Moderate Body Position Prone Comments To start with efflleurage PT-OP-R Modalities Start: 02/21/18 15:30 Freq: Status: Active Protocol: Document 03/14/18 12:19 EA (Rec: 03/14/18 12:19 EA [id number]) Electric Stimulation Electric Stimulation Interferential Current (IFC) Body Location L low back Duration (Minutes) 15 Intensity 34 Patient Position Prone Combined With Heat/Cold Hot Pack Comments Cross @ L SIJ PT-OP-T Assessment and Plan Start: 02/21/18 15:30 Freq: Status: Active Protocol: Document 03/14/18 12:13 EA (Rec: 03/14/18 12:19 EA [id number]) Physical Therapy Assessment Progress Towards Goals Progress Towards Goals Progressing Toward Goals Assessment Summary Assessment Improved bed mobility and positioning with no difficulty ; less tender to low back region at this time. Physical Therapy Plan Next Visit Focus/Plan Next Note Type Treatment Note Next Visit Plan Cont with current plan.
--- NOTE | 2018-03-19 15:45 | PT.OTN ---
Current Diagnoses Unilateral primary osteoarthritis, left hip (03/19/18) Low back pain (03/19/18) Gluteal tendinitis, left hip (03/19/18) Physical Therapy Treatment Note PT-OP-A Visit Information Start: 02/21/18 15:30 Freq: Status: Active Protocol: Document 03/19/18 15:34 EA (Rec: 03/19/18 15:44 EA [id number]) Out-Patient Physical Therapy Visit Information Visit Information Visit Type Treatment Note Visit Start Time 10:30 Visit Stop Time 11:25 Total Visit Minutes 55 Visit Number 10 Number of MAGNETIC PROSPECTING OPERATOR Visits 0 PT-OP-B Current Condition Start: 02/21/18 15:30 Freq: Status: Active Protocol: Document 02/21/18 15:33 EA (Rec: 02/21/18 16:00 EA [id number]) Current Condition History of Current Condition Onset Date 12/15/17 Current Complaints Low back pain History of Current Condition Present condition started to re-aggravated 2 months ago with no known reasons/injury. Patient reports chronic localized low back pain more than ten years. Had multiple surgery to left ankle/foot due to infection, TA rupture; had L ACL reconstruction in 2002. MRI reveals Left gluteals tendinosis and hip joint OA. 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 Treatment Goals Patient/Caregiver Goals 1. Improve LLE flexibility and strength 2. Eliminate low back pain Prior Functional Status Baseline Function- ADL's Independent Baseline Function- Mobility Independent Baseline Function- Other Able to to perform floor lift > 30 lbs with no difficulty Current Functional Impairments (Reported) Functional Limitations- ADL's Lifting difficulty, decreased sitting position tolerance Unable to sleep more than 4 hours due to low back pain Personal Factors Other Personal Factors That May Effect Living situation: Patient Therapy/Recovery lives in the boat with low ceiling that requires a lot of trunk bending. PT-OP-C Subjective Start: 02/21/18 15:30 Freq: Status: Active Protocol: Document 03/19/18 15:34 EA (Rec: 03/19/18 15:44 EA [id number]) OP-PT Subjective Patient Comments Patient Comments Pt reports that he has been active in his storage lifting and carrying boxes; states low back pain is much improved at this time. Patiel also reports that he is complaint with HEP and recommended posture. PT-OP-D Balance Start: 02/21/18 15:30 Freq: Status: Active Protocol: Document 02/21/18 17:36 EA (Rec: 02/21/18 17:36 EA [id number]) OP-PT Balance Assessment Sitting Balance Static Sitting Balance Ability Good Dynamic Sitting Balance Ability Good Standing Balance Static Standing Balance Ability Good Dynamic Standing Balance Ability Good Balance Tests Single Limb Standing Single Limb- Right <3 seconds Single Limb- Left <2 seconds Joao Fall Scale Copyright Permission Joao JM, Joao RM, Silviano SJ. Development of a scale to identify the fall- prone patient. Can J Aging 1989;8;366-7. Macie Shepherd (2009). Preventing patient falls. (2nd ed). [place]: Shahid. PT-OP-G Mobility & Gait Start: 02/21/18 15:30 Freq: Status: Active Protocol: Document 02/21/18 15:33 EA (Rec: 02/21/18 16:00 EA [id number]) OP Mobility Evaluation Bed Mobility Rolling Indep with difficulty Supine to and from Sit Idenp w/ difficulty OP Gait Assessment Gait Gait Assistance Required: Independent Able to Maintain Weight Bearing Status Yes During Gait Assistive Devices Assistive Device None Factors Limiting Gait Function Factors Limiting Gait Function Decreased Strength Comments Gait Comments Left foot dropped moderately. PT-OP-J Posture/Palpation/Skin Start: 02/21/18 15:30 Freq: Status: Active Protocol: Document 02/21/18 15:33 EA (Rec: 02/21/18 16:00 EA [id number]) Posture Evaluation Position Standing Evaluation View Post/lat Head/C-Spine Posture Forward Head L-Spine Posture Flattened Decreased Lordosis Shoulder Posture (L) Rounded (R) Rounded Scapula Posture (L) Protracted (R) Protracted Pelvis Posture Posterior Tilted Ankle/Foot Posture (L) Forefoot Adducted Toe Posture (L) Clawed Toes (L) Extended Toes Comments Posture Comments Fair posture Palpation Assessment Location Two Palpation Location Tightness to left QL, both multifidus Palpation Findings Soft Tissue Tightness One Palpation Location Grade 2 tenderness to right SI joint, left paraspinals, L QL Palpation Findings Tenderness Palpation Details Grade 2 tenderness to right SI joint, left paraspinals PT-OP-K Range of Motion Start: 02/21/18 15:30 Freq: Status: Active Protocol: Document 02/21/18 15:33 EA (Rec: 02/21/18 16:00 EA [id number]) Lumbar Spine Range of Motion Lumbar Spine Active Percentage Testing Position standing Flexion 100 Extension 50 Rotation Left 75 Rotation Right 75 Lateral Flexion Left 70 Lateral Flexion Right 65 ROM Limitations Soft Tissue Tightness Pain Comments Pain provoked mostly with extension, R sidebending Knee Goniometric Range of Motion Knee Measured in Degrees Left Knee ROM WFL Yes Ankle and Foot Goniometric Range of Motion Ankle and Foot Measured in Degrees Left Passive Ankle/Foot ROM WFL Yes PT-OP-L Special Tests Start: 02/21/18 15:30 Freq: Status: Active Protocol: Document 02/21/18 15:30 EA (Rec: 02/21/18 17:19 EA [id number]) Special Tests Lumbar Spine Special Tests Straight Leg Raise Test Results negative Other- 2 Test Results Sensitive: L sidebend & rotation Comments Posterior quadrant/facets joint Other- 1 Test Results sensitive to right Comments Compression S/L Compression Test Results Neg Comments ant/ supine Hip Special Tests DEEPAK Test Results Negative PT-OP-M Strength Start: 02/21/18 15:30 Freq: Status: Active Protocol: Document 02/21/18 15:33 EA (Rec: 02/21/18 16:00 EA [id number]) Trunk Strength Trunk Manual Muscle Testing Testing Position sup/prone/sitting Flexion 3 Fair Extension 3 Fair Rotation Left 3 Fair Rotation Right 3 Fair Lateral Flexion Left 3+ Fair+ Lateral Flexion Right 3+ Fair+ Hip Strength Hip Manual Muscle Testing Left Flexion (L2) 4- Good- Extension (S1) 4- Good- Abduction 4- Good- External Rotation 4+ Good+ Internal Rotation 4- Good- Comments RLE are WFL Knee Strength Knee Manual Muscle Testing Left Flexion (S2) 4- Good- Extension (L3) 5 Normal Comments R knee F/E are WFL Ankle/Foot Strength Ankle and Foot Manual Muscle Testing Left Dorsiflexion (L4) 3- Fair- Plantarflexion (S1) 4- Good- Inversion 3- Fair- Eversion (S1) 3- Fair- Comments R ankle DF/PF/INV/EV are WFL Toe Strength Toe Manual Muscle Testing Left Great Toe Flexion 2 Poor Extension 4- Good- Comments Toes 1st to 4th had tendon released due to hammer toes PT-OP-Q Treatments Start: 02/21/18 15:30 Freq: Status: Active Protocol: Document 03/19/18 15:34 EA (Rec: 03/19/18 15:44 EA [id number]) Cardio Equipment Recumbent Stepper (Sci-Fit) Duration (Minutes) 7 Resistance 3 Seat Position 12 Gym Equipment Cable Column (Body Solid) Leg Extension Details double-single leg Resistance 50#, 20# respectively Reps/Time x 15 reps x 2 sets Double, 9x2 sets Single, Shuttle Recovery Unilateral Squats Resistance 75# Reps/Time x 12 reps x 2 Therapeutic Exercises Supine Exercises Hip flexor stretch Supine Exercise Name supine and half kneeling Side bilateral Comments 60 sec hold stretch 8 Supine Exercise Name Hamstring stretch Comments passive 7 Supine Exercise Name Low trunk rotation stretch Comments Passive 6 Supine Exercise Name Hip ER stretch Comments Passive 5 Supine Exercise Name DKTC Reps/Minutes x 30SH x 3 reps Comments Manual assist 4 Supine Exercise Name SKTC Reps/Minutes x 30 SH x 3 reps each Comments Manual assist 3 Supine Exercise Name TrA activation with marching Reps/Minutes x 10 reps x 2 sets 2 Supine Exercise Name PPT with SLR Reps/Minutes x 10 reps x 2 sets 1 Supine Exercise Name Partial sit up Reps/Minutes x 5 SH x 5 reps bridging Side bilateral Comments Lv2 TB to hip ABD isomet LTR Supine Exercise Name lower trunk rotation Side bilateral Reps/Minutes x 15SH x 2 reps Comments stretch Transverse Abdominal Supine Exercise Name TrAb activation Side bilateral Reps/Minutes 10x5 sec hold Sidelying Exercises 2 Sidelying Exercise Name clamshell Side left Reps/Minutes to fatigue 1 Sidelying Exercise Name Hip flexor and IT band stretch Side bilateral Reps/Minutes x 30sh x 3 reps each Comments Passive Standing Exercises Gastroc Stretch Side bilateral Equipment Used FOREIGN 1 Standing Exercise Name Wall squat w/ PPT Reps/Minutes x 5sec hold x 10 reps Manual Therapy Treatment Soft Tissue Mobilization 1 Body Location B QL, paraspinals Mobilization Type Myofascial Release Strumming Sustained Pressure Trigger Point Release Intensity/Depth Moderate Body Position Prone Comments To start with efflleurage PT-OP-R Modalities Start: 02/21/18 15:30 Freq: Status: Active Protocol: Document 03/19/18 15:34 EA (Rec: 03/19/18 15:44 EA [id number]) Electric Stimulation Electric Stimulation Interferential Current (IFC) Body Location L low back Duration (Minutes) 15 Intensity 34 Patient Position Prone Combined With Heat/Cold Hot Pack Comments Cross @ L SIJ PT-OP-T Assessment and Plan Start: 02/21/18 15:30 Freq: Status: Active Protocol: Document 03/19/18 15:34 EA (Rec: 03/19/18 15:44 EA [id number]) Physical Therapy Assessment Progress Towards Goals Progress Towards Goals Progressing Toward Goals Assessment Summary Assessment Pt exhibits improved tolerance to therex with no discomfort noted throughout. Physical Therapy Plan Frequency and Duration Frequency of Treatment 2 Therapeutic Interventions Therapeutic Interventions Home Exercise Program Joint Mobilizations Neuromuscular Re-education Patient/Caregiver Education Self-Care/Home Management Soft Tissue Mobilization Therapeutic Exercises Modalities Cold Pack/Ice Massage Electric Stimulation Hot Packs Infrared Therapy Ultrasound Next Visit Focus/Plan Next Note Type Treatment Note Next Visit Plan advance as tolerated in standing
--- NOTE | 2018-03-21 15:15 | PT.OTN ---
Current Diagnoses Unilateral primary osteoarthritis, left hip (03/21/18) Low back pain (03/21/18) Gluteal tendinitis, left hip (03/21/18) Physical Therapy Treatment Note PT-OP-A Visit Information Start: 02/21/18 15:30 Freq: Status: Active Protocol: Document 03/21/18 15:10 EA (Rec: 03/21/18 15:15 EA [id number]) Out-Patient Physical Therapy Visit Information Visit Information Visit Type Treatment Note Visit Start Time 12:15 Visit Stop Time 13:10 Total Visit Minutes 55 Visit Number 11 Number of NURSE PRACTITIONER MANAGER Visits 0 PT-OP-B Current Condition Start: 02/21/18 15:30 Freq: Status: Active Protocol: Document 02/21/18 15:33 EA (Rec: 02/21/18 16:00 EA [id number]) Current Condition History of Current Condition Onset Date 12/15/17 Current Complaints Low back pain History of Current Condition Present condition started to re-aggravated 2 months ago with no known reasons/injury. Patient reports chronic localized low back pain more than ten years. Had multiple surgery to left ankle/foot due to infection, TA rupture; had L ACL reconstruction in 2002. MRI reveals Left gluteals tendinosis and hip joint OA. 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 Treatment Goals Patient/Caregiver Goals 1. Improve LLE flexibility and strength 2. Eliminate low back pain Prior Functional Status Baseline Function- ADL's Independent Baseline Function- Mobility Independent Baseline Function- Other Able to to perform floor lift > 30 lbs with no difficulty Current Functional Impairments (Reported) Functional Limitations- ADL's Lifting difficulty, decreased sitting position tolerance Unable to sleep more than 4 hours due to low back pain Personal Factors Other Personal Factors That May Effect Living situation: Patient Therapy/Recovery lives in the boat with low ceiling that requires a lot of trunk bending. PT-OP-C Subjective Start: 02/21/18 15:30 Freq: Status: Active Protocol: Document 03/21/18 15:10 EA (Rec: 03/21/18 15:15 EA [id number]) OP-PT Subjective Patient Comments Patient Comments Pt reports a bit soreness to low back after last session but much feeling better thiks time. Patient Reported Progress Improving PT-OP-D Balance Start: 02/21/18 15:30 Freq: Status: Active Protocol: Document 02/21/18 17:36 EA (Rec: 02/21/18 17:36 EA [id number]) OP-PT Balance Assessment Sitting Balance Static Sitting Balance Ability Good Dynamic Sitting Balance Ability Good Standing Balance Static Standing Balance Ability Good Dynamic Standing Balance Ability Good Balance Tests Single Limb Standing Single Limb- Right <3 seconds Single Limb- Left <2 seconds Shepherd Fall Scale Copyright Permission Joao JM, Joao RM, Silviano SJ. Development of a scale to identify the fall- prone patient. Can J Aging 1989;8;366-7. Macie Shepherd (2009). Preventing patient falls. (2nd ed). [place]: Shahid. PT-OP-G Mobility & Gait Start: 02/21/18 15:30 Freq: Status: Active Protocol: Document 02/21/18 15:33 EA (Rec: 02/21/18 16:00 EA [id number]) OP Mobility Evaluation Bed Mobility Rolling Indep with difficulty Supine to and from Sit Idenp w/ difficulty OP Gait Assessment Gait Gait Assistance Required: Independent Able to Maintain Weight Bearing Status Yes During Gait Assistive Devices Assistive Device None Factors Limiting Gait Function Factors Limiting Gait Function Decreased Strength Comments Gait Comments Left foot dropped moderately. PT-OP-J Posture/Palpation/Skin Start: 02/21/18 15:30 Freq: Status: Active Protocol: Document 02/21/18 15:33 EA (Rec: 02/21/18 16:00 EA [id number]) Posture Evaluation Position Standing Evaluation View Post/lat Head/C-Spine Posture Forward Head L-Spine Posture Flattened Decreased Lordosis Shoulder Posture (L) Rounded (R) Rounded Scapula Posture (L) Protracted (R) Protracted Pelvis Posture Posterior Tilted Ankle/Foot Posture (L) Forefoot Adducted Toe Posture (L) Clawed Toes (L) Extended Toes Comments Posture Comments Fair posture Palpation Assessment Location Two Palpation Location Tightness to left QL, both multifidus Palpation Findings Soft Tissue Tightness One Palpation Location Grade 2 tenderness to right SI joint, left paraspinals, L QL Palpation Findings Tenderness Palpation Details Grade 2 tenderness to right SI joint, left paraspinals PT-OP-K Range of Motion Start: 02/21/18 15:30 Freq: Status: Active Protocol: Document 02/21/18 15:33 EA (Rec: 02/21/18 16:00 EA [id number]) Lumbar Spine Range of Motion Lumbar Spine Active Percentage Testing Position standing Flexion 100 Extension 50 Rotation Left 75 Rotation Right 75 Lateral Flexion Left 70 Lateral Flexion Right 65 ROM Limitations Soft Tissue Tightness Pain Comments Pain provoked mostly with extension, R sidebending Knee Goniometric Range of Motion Knee Measured in Degrees Left Knee ROM WFL Yes Ankle and Foot Goniometric Range of Motion Ankle and Foot Measured in Degrees Left Passive Ankle/Foot ROM WFL Yes PT-OP-L Special Tests Start: 02/21/18 15:30 Freq: Status: Active Protocol: Document 02/21/18 15:30 EA (Rec: 02/21/18 17:19 EA [id number]) Special Tests Lumbar Spine Special Tests Straight Leg Raise Test Results negative Other- 2 Test Results Sensitive: L sidebend & rotation Comments Posterior quadrant/facets joint Other- 1 Test Results sensitive to right Comments Compression S/L Compression Test Results Neg Comments ant/ supine Hip Special Tests DEEPAK Test Results Negative PT-OP-M Strength Start: 02/21/18 15:30 Freq: Status: Active Protocol: Document 02/21/18 15:33 EA (Rec: 02/21/18 16:00 EA [id number]) Trunk Strength Trunk Manual Muscle Testing Testing Position sup/prone/sitting Flexion 3 Fair Extension 3 Fair Rotation Left 3 Fair Rotation Right 3 Fair Lateral Flexion Left 3+ Fair+ Lateral Flexion Right 3+ Fair+ Hip Strength Hip Manual Muscle Testing Left Flexion (L2) 4- Good- Extension (S1) 4- Good- Abduction 4- Good- External Rotation 4+ Good+ Internal Rotation 4- Good- Comments RLE are WFL Knee Strength Knee Manual Muscle Testing Left Flexion (S2) 4- Good- Extension (L3) 5 Normal Comments R knee F/E are WFL Ankle/Foot Strength Ankle and Foot Manual Muscle Testing Left Dorsiflexion (L4) 3- Fair- Plantarflexion (S1) 4- Good- Inversion 3- Fair- Eversion (S1) 3- Fair- Comments R ankle DF/PF/INV/EV are WFL Toe Strength Toe Manual Muscle Testing Left Great Toe Flexion 2 Poor Extension 4- Good- Comments Toes 1st to 4th had tendon released due to hammer toes PT-OP-Q Treatments Start: 02/21/18 15:30 Freq: Status: Active Protocol: Document 03/21/18 15:10 EA (Rec: 03/21/18 15:15 EA [id number]) Cardio Equipment Recumbent Stepper (Sci-Fit) Duration (Minutes) 7 Resistance 3 Seat Position 12 Gym Equipment Cable Column (Body Solid) Leg Extension Details double-single leg Resistance 50#, 20# respectively Reps/Time x 15 reps x 2 sets Double, 9x2 sets Single, Shuttle Recovery Unilateral Squats Resistance 87# Reps/Time x 12 reps x 2 Therapeutic Exercises Supine Exercises 8 Supine Exercise Name Hamstring stretch Comments passive 5 Supine Exercise Name DKTC Reps/Minutes x 30SH x 3 reps Comments Manual assist 4 Supine Exercise Name SKTC Reps/Minutes x 30 SH x 3 reps each Comments Manual assist 3 Supine Exercise Name TrA activation with marching Reps/Minutes x 10 reps x 2 sets 2 Supine Exercise Name PPT with SLR Reps/Minutes x 10 reps x 2 sets bridging Side bilateral Comments Lv2 TB to hip ABD isomet LTR Supine Exercise Name lower trunk rotation Side bilateral Reps/Minutes x 15SH x 2 reps Comments stretch Sidelying Exercises 1 Sidelying Exercise Name Hip flexor and IT band stretch Side bilateral Reps/Minutes x 30sh x 3 reps each Comments Passive Standing Exercises 2 Standing Exercise Name Half kneeling hip flexor stretch Gastroc Stretch Side bilateral Equipment Used FOREIGN 1 Standing Exercise Name Wall squat w/ PPT Reps/Minutes x 5sec hold x 10 reps Manual Therapy Treatment Soft Tissue Mobilization 1 Body Location B QL, paraspinals, hip flexors Mobilization Type Myofascial Release Strumming Sustained Pressure Trigger Point Release Intensity/Depth Moderate Body Position Prone Comments To start with efflleurage PT-OP-R Modalities Start: 02/21/18 15:30 Freq: Status: Active Protocol: Document 03/21/18 15:10 EA (Rec: 03/21/18 15:15 EA [id number]) Electric Stimulation Electric Stimulation Interferential Current (IFC) Body Location L low back Duration (Minutes) 15 Intensity 34 Patient Position Prone Combined With Heat/Cold Hot Pack Comments Cross @ L SIJ PT-OP-T Assessment and Plan Start: 02/21/18 15:30 Freq: Status: Active Protocol: Document 03/21/18 15:10 EA (Rec: 11/21/18 15:15 EA [id number]) Physical Therapy Assessment Assessment Summary Assessment Tolerated treatment well with less tender spots to low back region after manual PT. Physical Therapy Plan Next Visit Focus/Plan Next Note Type Treatment Note
--- NOTE | 2018-03-27 14:15 | PT.OTN ---
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 Patient reports chronic localized low back pain more than ten years. Had multiple surgery to left ankle/foot due to infection, TA rupture; had L ACL reconstruction in 2002. MRI reveals Left gluteals tendinosis and hip joint OA. 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 Treatment Goals Patient/Caregiver Goals 1. Improve LLE flexibility and strength 2. Eliminate low back pain Prior Functional Status Baseline Function- ADL's Independent Baseline Function- Mobility Independent Baseline Function- Other Able to to perform floor lift > 30 lbs with no difficulty Current Functional Impairments (Reported) Functional Limitations- ADL's Lifting difficulty, decreased sitting position tolerance Unable to sleep more than 4 hours due to low back pain Personal Factors Other Personal Factors That May Effect Living situation: Patient Therapy/Recovery lives in the boat with low ceiling that requires a lot of trunk bending. PT-OP-C Subjective Start: 02/21/18 15:30 Freq: Status: Active Protocol: Document 03/27/18 13:45 EA (Rec: 03/27/18 14:15 EA [id number]) OP-PT Subjective Patient Comments Patient Comments Pt reprots easy to get in/out of the car; states stretching to both hip helps a lot. Pt also reports that he is consistent to his cycling daily. Patient Reported Progress Improving PT-OP-D Balance Start: 02/21/18 15:30 Freq: Status: Active Protocol: Document 02/21/18 17:36 EA (Rec: 02/21/18 17:36 EA [id number]) OP-PT Balance Assessment Sitting Balance Static Sitting Balance Ability Good Dynamic Sitting Balance Ability Good Standing Balance Static Standing Balance Ability Good Dynamic Standing Balance Ability Good Balance Tests Single Limb Standing Single Limb- Right <3 seconds Single Limb- Left <2 seconds Joao Fall Scale Copyright Permission Joao JM, Joao RM, Silviano SJ. Development of a scale to identify the fall- prone patient. Can J Aging 1989;8;366-7. Macie Shepherd (2009). Preventing patient falls. (2nd ed). [place]: Shahid. PT-OP-G Mobility & Gait Start: 02/21/18 15:30 Freq: Status: Active Protocol: Document 02/21/18 15:33 EA (Rec: 02/21/18 16:00 EA [id number]) OP Mobility Evaluation Bed Mobility Rolling Indep with difficulty Supine to and from Sit Idenp w/ difficulty OP Gait Assessment Gait Gait Assistance Required: Independent Able to Maintain Weight Bearing Status Yes During Gait Assistive Devices Assistive Device None Factors Limiting Gait Function Factors Limiting Gait Function Decreased Strength Comments Gait Comments Left foot dropped moderately. PT-OP-J Posture/Palpation/Skin Start: 02/21/18 15:30 Freq: Status: Active Protocol: Document 02/21/18 15:33 EA (Rec: 02/21/18 16:00 EA [id number]) Posture Evaluation Position Standing Evaluation View Post/lat Head/C-Spine Posture Forward Head L-Spine Posture Flattened Decreased Lordosis Shoulder Posture (L) Rounded (R) Rounded Scapula Posture (L) Protracted (R) Protracted Pelvis Posture Posterior Tilted Ankle/Foot Posture (L) Forefoot Adducted Toe Posture (L) Clawed Toes (L) Extended Toes Comments Posture Comments Fair posture Palpation Assessment Location Two Palpation Location Tightness to left QL, both multifidus Palpation Findings Soft Tissue Tightness One Palpation Location Grade 2 tenderness to right SI joint, left paraspinals, L QL Palpation Findings Tenderness Palpation Details Grade 2 tenderness to right SI joint, left paraspinals PT-OP-K Range of Motion Start: 02/21/18 15:30 Freq: Status: Active Protocol: Document 02/21/18 15:33 EA (Rec: 02/21/18 16:00 EA [id number]) Lumbar Spine Range of Motion Lumbar Spine Active Percentage Testing Position standing Flexion 100 Extension 50 Rotation Left 75 Rotation Right 75 Lateral Flexion Left 70 Lateral Flexion Right 65 ROM Limitations Soft Tissue Tightness Pain Comments Pain provoked mostly with extension, R sidebending Knee Goniometric Range of Motion Knee Measured in Degrees Left Knee ROM WFL Yes Ankle and Foot Goniometric Range of Motion Ankle and Foot Measured in Degrees Left Passive Ankle/Foot ROM WFL Yes PT-OP-L Special Tests Start: 02/21/18 15:30 Freq: Status: Active Protocol: Document 02/21/18 15:30 EA (Rec: 02/21/18 17:19 EA [id number]) Special Tests Lumbar Spine Special Tests Straight Leg Raise Test Results negative Other- 2 Test Results Sensitive: L sidebend & rotation Comments Posterior quadrant/facets joint Other- 1 Test Results sensitive to right Comments Compression S/L Compression Test Results Neg Comments ant/ supine Hip Special Tests DEEPAK Test Results Negative PT-OP-M Strength Start: 02/21/18 15:30 Freq: Status: Active Protocol: Document 02/21/18 15:33 EA (Rec: 02/21/18 16:00 EA [id number]) Trunk Strength Trunk Manual Muscle Testing Testing Position sup/prone/sitting Flexion 3 Fair Extension 3 Fair Rotation Left 3 Fair Rotation Right 3 Fair Lateral Flexion Left 3+ Fair+ Lateral Flexion Right 3+ Fair+ Hip Strength Hip Manual Muscle Testing Left Flexion (L2) 4- Good- Extension (S1) 4- Good- Abduction 4- Good- External Rotation 4+ Good+ Internal Rotation 4- Good- Comments RLE are WFL Knee Strength Knee Manual Muscle Testing Left Flexion (S2) 4- Good- Extension (L3) 5 Normal Comments R knee F/E are WFL Ankle/Foot Strength Ankle and Foot Manual Muscle Testing Left Dorsiflexion (L4) 3- Fair- Plantarflexion (S1) 4- Good- Inversion 3- Fair- Eversion (S1) 3- Fair- Comments R ankle DF/PF/INV/EV are WFL Toe Strength Toe Manual Muscle Testing Left Great Toe Flexion 2 Poor Extension 4- Good- Comments Toes 1st to 4th had tendon released due to hammer toes PT-OP-Q Treatments Start: 02/21/18 15:30 Freq: Status: Active Protocol: Document 03/27/18 13:45 EA (Rec: 03/27/18 14:15 EA [id number]) Gym Equipment Cable Column (Body Solid) Leg Extension Details single: left Resistance 20-30-50 Reps/Time 8-12 reps x 3 sets Shuttle Recovery Unilateral Squats Resistance 50-100# Reps/Time x 12 reps x 3 Therapeutic Exercises Supine Exercises Hip flexor stretch Supine Exercise Name supine and half kneeling Side bilateral Comments 60 sec hold stretch 8 Supine Exercise Name Hamstring stretch Comments passive 7 Supine Exercise Name Low trunk rotation stretch Comments Passive 6 Supine Exercise Name Hip ER stretch Comments Passive 5 Supine Exercise Name DKTC Reps/Minutes x 30SH x 3 reps Comments Manual assist 4 Supine Exercise Name SKTC Reps/Minutes x 30 SH x 3 reps each Comments Manual assist 3 Supine Exercise Name TrA activation with marching Reps/Minutes x 10 reps x 2 sets 2 Supine Exercise Name PPT with SLR Reps/Minutes x 10 reps x 2 sets 1 Supine Exercise Name Partial sit up Reps/Minutes x 5 SH x 5 reps bridging Side bilateral Comments Lv2 TB to hip ABD isomet LTR Supine Exercise Name lower trunk rotation Side bilateral Reps/Minutes x 15SH x 2 reps Comments stretch Transverse Abdominal Supine Exercise Name TrAb activation Side bilateral Reps/Minutes 10x5 sec hold Sidelying Exercises 1 Sidelying Exercise Name Hip flexor and IT band stretch Side bilateral Reps/Minutes x 30sh x 3 reps each Comments Passive Standing Exercises 3 Standing Exercise Name side step squat w/ heel raises Resistance GTB Reps/Minutes x 2 lines x 8 ft 2 Standing Exercise Name Half kneeling hip flexor stretch Gastroc Stretch Side bilateral Equipment Used FOREIGN Manual Therapy Treatment Soft Tissue Mobilization 1 Body Location B QL, paraspinals, hip flexors Mobilization Type Myofascial Release Strumming Sustained Pressure Trigger Point Release Intensity/Depth Moderate Body Position Prone Comments To start with efflleurage PT-OP-R Modalities Start: 02/21/18 15:30 Freq: Status: Active Protocol: Document 03/27/18 13:45 EA (Rec: 03/27/18 14:15 EA [id number]) Electric Stimulation Electric Stimulation Interferential Current (IFC) Body Location L low back Duration (Minutes) 15 Intensity 34 Patient Position Prone Combined With Heat/Cold Hot Pack Comments Cross @ L SIJ PT-OP-T Assessment and Plan Start: 02/21/18 15:30 Freq: Status: Active Protocol: Document 03/27/18 13:45 EA (Rec: 03/27/18 14:15 EA [id number]) Physical Therapy Assessment Assessment Summary Assessment PT demonstrates improved LLE strength with less tender to low back area. Patient is progressing well. Physical Therapy Plan Next Visit Focus/Plan Next Note Type Treatment Note Next Visit Plan Cont. or add standing exercises.
--- NOTE | 2018-03-29 12:22 | PT.OTN ---
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 Patient reports chronic localized low back pain more than ten years. Had multiple surgery to left ankle/foot due to infection, TA rupture; had L ACL reconstruction in 2002. MRI reveals Left gluteals tendinosis and hip joint OA. 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 Treatment Goals Patient/Caregiver Goals 1. Improve LLE flexibility and strength 2. Eliminate low back pain Prior Functional Status Baseline Function- ADL's Independent Baseline Function- Mobility Independent Baseline Function- Other Able to to perform floor lift > 30 lbs with no difficulty Current Functional Impairments (Reported) Functional Limitations- ADL's Lifting difficulty, decreased sitting position tolerance Unable to sleep more than 4 hours due to low back pain Personal Factors Other Personal Factors That May Effect Living situation: Patient Therapy/Recovery lives in the boat with low ceiling that requires a lot of trunk bending. PT-OP-C Subjective Start: 02/21/18 15:30 Freq: Status: Active Protocol: Document 03/29/18 12:14 EA (Rec: 03/29/18 12:21 EA [id number]) OP-PT Subjective Patient Comments Patient Comments Pt reports bed mobility is quite easy now and he has been consistent with cycling for > 10 mins which back pain is not aggrvated with that activity. Patient Reported Progress Improving PT-OP-D Balance Start: 02/21/18 15:30 Freq: Status: Active Protocol: Document 02/21/18 17:36 EA (Rec: 02/21/18 17:36 EA [id number]) OP-PT Balance Assessment Sitting Balance Static Sitting Balance Ability Good Dynamic Sitting Balance Ability Good Standing Balance Static Standing Balance Ability Good Dynamic Standing Balance Ability Good Balance Tests Single Limb Standing Single Limb- Right <3 seconds Single Limb- Left <2 seconds Joao Fall Scale Copyright Permission Joao JM, Joao RM, Silviano SJ. Development of a scale to identify the fall- prone patient. Can J Aging 1989;8;366-7. Macie Shepherd (2009). Preventing patient falls. (2nd ed). [place]: Shahid. PT-OP-G Mobility & Gait Start: 02/21/18 15:30 Freq: Status: Active Protocol: Document 02/21/18 15:33 EA (Rec: 02/21/18 16:00 EA [id number]) OP Mobility Evaluation Bed Mobility Rolling Indep with difficulty Supine to and from Sit Idenp w/ difficulty OP Gait Assessment Gait Gait Assistance Required: Independent Able to Maintain Weight Bearing Status Yes During Gait Assistive Devices Assistive Device None Factors Limiting Gait Function Factors Limiting Gait Function Decreased Strength Comments Gait Comments Left foot dropped moderately. PT-OP-J Posture/Palpation/Skin Start: 02/21/18 15:30 Freq: Status: Active Protocol: Document 02/21/18 15:33 EA (Rec: 02/21/18 16:00 EA [id number]) Posture Evaluation Position Standing Evaluation View Post/lat Head/C-Spine Posture Forward Head L-Spine Posture Flattened Decreased Lordosis Shoulder Posture (L) Rounded (R) Rounded Scapula Posture (L) Protracted (R) Protracted Pelvis Posture Posterior Tilted Ankle/Foot Posture (L) Forefoot Adducted Toe Posture (L) Clawed Toes (L) Extended Toes Comments Posture Comments Fair posture Palpation Assessment Location Two Palpation Location Tightness to left QL, both multifidus Palpation Findings Soft Tissue Tightness One Palpation Location Grade 2 tenderness to right SI joint, left paraspinals, L QL Palpation Findings Tenderness Palpation Details Grade 2 tenderness to right SI joint, left paraspinals PT-OP-K Range of Motion Start: 02/21/18 15:30 Freq: Status: Active Protocol: Document 02/21/18 15:33 EA (Rec: 02/21/18 16:00 EA [id number]) Lumbar Spine Range of Motion Lumbar Spine Active Percentage Testing Position standing Flexion 100 Extension 50 Rotation Left 75 Rotation Right 75 Lateral Flexion Left 70 Lateral Flexion Right 65 ROM Limitations Soft Tissue Tightness Pain Comments Pain provoked mostly with extension, R sidebending Knee Goniometric Range of Motion Knee Measured in Degrees Left Knee ROM WFL Yes Ankle and Foot Goniometric Range of Motion Ankle and Foot Measured in Degrees Left Passive Ankle/Foot ROM WFL Yes PT-OP-L Special Tests Start: 02/21/18 15:30 Freq: Status: Active Protocol: Document 02/21/18 15:30 EA (Rec: 02/21/18 17:19 EA [id number]) Special Tests Lumbar Spine Special Tests Straight Leg Raise Test Results negative Other- 2 Test Results Sensitive: L sidebend & rotation Comments Posterior quadrant/facets joint Other- 1 Test Results sensitive to right Comments Compression S/L Compression Test Results Neg Comments ant/ supine Hip Special Tests DEEPAK Test Results Negative PT-OP-M Strength Start: 02/21/18 15:30 Freq: Status: Active Protocol: Document 02/21/18 15:33 EA (Rec: 02/21/18 16:00 EA [id number]) Trunk Strength Trunk Manual Muscle Testing Testing Position sup/prone/sitting Flexion 3 Fair Extension 3 Fair Rotation Left 3 Fair Rotation Right 3 Fair Lateral Flexion Left 3+ Fair+ Lateral Flexion Right 3+ Fair+ Hip Strength Hip Manual Muscle Testing Left Flexion (L2) 4- Good- Extension (S1) 4- Good- Abduction 4- Good- External Rotation 4+ Good+ Internal Rotation 4- Good- Comments RLE are WFL Knee Strength Knee Manual Muscle Testing Left Flexion (S2) 4- Good- Extension (L3) 5 Normal Comments R knee F/E are WFL Ankle/Foot Strength Ankle and Foot Manual Muscle Testing Left Dorsiflexion (L4) 3- Fair- Plantarflexion (S1) 4- Good- Inversion 3- Fair- Eversion (S1) 3- Fair- Comments R ankle DF/PF/INV/EV are WFL Toe Strength Toe Manual Muscle Testing Left Great Toe Flexion 2 Poor Extension 4- Good- Comments Toes 1st to 4th had tendon released due to hammer toes PT-OP-Q Treatments Start: 02/21/18 15:30 Freq: Status: Active Protocol: Document 03/29/18 12:14 EA (Rec: 03/29/18 12:21 EA [id number]) Gym Equipment Cable Column (Body Solid) Leg Extension Details single: left Resistance 20-30-50 Reps/Time 8-12 reps x 3 sets Shuttle Recovery Unilateral Squats Resistance 75-112# Reps/Time x 8-12 reps x 3 Therapeutic Exercises Supine Exercises Hip flexor stretch Supine Exercise Name supine and half kneeling Side bilateral Comments 60 sec hold stretch 8 Supine Exercise Name Hamstring stretch Comments passive 7 Supine Exercise Name Low trunk rotation stretch Comments Passive 6 Supine Exercise Name Hip ER stretch Comments Passive 5 Supine Exercise Name DKTC Reps/Minutes x 30SH x 3 reps Comments Manual assist 4 Supine Exercise Name SKTC Reps/Minutes x 30 SH x 3 reps each Comments Manual assist 3 Supine Exercise Name TrA activation with marching Reps/Minutes x 10 reps x 2 sets 2 Supine Exercise Name PPT with SLR Reps/Minutes x 10 reps x 2 sets 1 Supine Exercise Name Partial sit up Reps/Minutes x 5 SH x 5 reps bridging Side bilateral Comments Lv2 TB to hip ABD isomet LTR Supine Exercise Name lower trunk rotation Side bilateral Reps/Minutes x 15SH x 2 reps Comments stretch Transverse Abdominal Supine Exercise Name TrAb activation Side bilateral Reps/Minutes 10x5 sec hold Sidelying Exercises 1 Sidelying Exercise Name Hip flexor and IT band stretch Side bilateral Reps/Minutes x 30sh x 3 reps each Comments Passive Standing Exercises 3 Standing Exercise Name side step squat w/ heel raises Resistance GTB Reps/Minutes x 2 lines x 8 ft 2 Standing Exercise Name Half kneeling hip flexor stretch Gastroc Stretch Side bilateral Equipment Used FOREIGN 1 Standing Exercise Name Wall squat w/ PPT Reps/Minutes x 5sec hold x 10 reps Comments arm raises fwd Manual Therapy Treatment Soft Tissue Mobilization 1 Body Location B QL, paraspinals, hip flexors Mobilization Type Myofascial Release Strumming Sustained Pressure Trigger Point Release Intensity/Depth Moderate Body Position Prone Comments To start with efflleurage PT-OP-R Modalities Start: 02/21/18 15:30 Freq: Status: Active Protocol: Document 03/29/18 12:14 EA (Rec: 03/29/18 12:21 EA [id number]) Electric Stimulation Electric Stimulation Interferential Current (IFC) Body Location L low back Duration (Minutes) 15 Intensity 23 Patient Position Prone Combined With Heat/Cold Hot Pack Comments Cross @ L SIJ PT-OP-T Assessment and Plan Start: 02/21/18 15:30 Freq: Status: Active Protocol: Document 03/29/18 12:14 EA (Rec: 03/29/18 12:21 EA [id number]) Physical Therapy Assessment Assessment Summary Assessment Pt continue to progress with functional activities. Continue with current plan and progress as tolerated with core standing exercises. Physical Therapy Plan Next Visit Focus/Plan Next Note Type Treatment Note Next Visit Plan Cont. or add standing exercises.
--- NOTE | 2018-03-30 14:30 | PT.OTN ---
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 Patient reports chronic localized low back pain more than ten years. Had multiple surgery to left ankle/foot due to infection, TA rupture; had L ACL reconstruction in 2002. MRI reveals Left gluteals tendinosis and hip joint OA. 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 Treatment Goals Patient/Caregiver Goals 1. Improve LLE flexibility and strength 2. Eliminate low back pain Prior Functional Status Baseline Function- ADL's Independent Baseline Function- Mobility Independent Baseline Function- Other Able to to perform floor lift > 30 lbs with no difficulty Current Functional Impairments (Reported) Functional Limitations- ADL's Lifting difficulty, decreased sitting position tolerance Unable to sleep more than 4 hours due to low back pain Personal Factors Other Personal Factors That May Effect Living situation: Patient Therapy/Recovery lives in the boat with low ceiling that requires a lot of trunk bending. PT-OP-C Subjective Start: 02/21/18 15:30 Freq: Status: Active Protocol: Document 03/30/18 14:30 RCC (Rec: 04/01/18 17:08 RCC [id number]) OP-PT Subjective Patient Comments Patient Comments pt admits to soreness after last session. His pain is decreasing during sleep ( sleeping more). He does wake up with occasional pain in L low back region. PT-OP-D Balance Start: 02/21/18 15:30 Freq: Status: Active Protocol: Document 02/21/18 17:36 EA (Rec: 02/21/18 17:36 EA [id number]) OP-PT Balance Assessment Sitting Balance Static Sitting Balance Ability Good Dynamic Sitting Balance Ability Good Standing Balance Static Standing Balance Ability Good Dynamic Standing Balance Ability Good Balance Tests Single Limb Standing Single Limb- Right <3 seconds Single Limb- Left <2 seconds Joao Fall Scale Copyright Permission Joao JM, Joao RM, Silviano SJ. Development of a scale to identify the fall- prone patient. Can J Aging 1989;8;366-7. Macie Shepherd (2009). Preventing patient falls. (2nd ed). [place]: Shahid. PT-OP-G Mobility & Gait Start: 02/21/18 15:30 Freq: Status: Active Protocol: Document 02/21/18 15:33 EA (Rec: 02/21/18 16:00 EA [id number]) OP Mobility Evaluation Bed Mobility Rolling Indep with difficulty Supine to and from Sit Idenp w/ difficulty OP Gait Assessment Gait Gait Assistance Required: Independent Able to Maintain Weight Bearing Status Yes During Gait Assistive Devices Assistive Device None Factors Limiting Gait Function Factors Limiting Gait Function Decreased Strength Comments Gait Comments Left foot dropped moderately. PT-OP-J Posture/Palpation/Skin Start: 02/21/18 15:30 Freq: Status: Active Protocol: Document 02/21/18 15:33 EA (Rec: 02/21/18 16:00 EA [id number]) Posture Evaluation Position Standing Evaluation View Post/lat Head/C-Spine Posture Forward Head L-Spine Posture Flattened Decreased Lordosis Shoulder Posture (L) Rounded (R) Rounded Scapula Posture (L) Protracted (R) Protracted Pelvis Posture Posterior Tilted Ankle/Foot Posture (L) Forefoot Adducted Toe Posture (L) Clawed Toes (L) Extended Toes Comments Posture Comments Fair posture Palpation Assessment Location Two Palpation Location Tightness to left QL, both multifidus Palpation Findings Soft Tissue Tightness One Palpation Location Grade 2 tenderness to right SI joint, left paraspinals, L QL Palpation Findings Tenderness Palpation Details Grade 2 tenderness to right SI joint, left paraspinals PT-OP-K Range of Motion Start: 02/21/18 15:30 Freq: Status: Active Protocol: Document 02/21/18 15:33 EA (Rec: 02/21/18 16:00 EA [id number]) Lumbar Spine Range of Motion Lumbar Spine Active Percentage Testing Position standing Flexion 100 Extension 50 Rotation Left 75 Rotation Right 75 Lateral Flexion Left 70 Lateral Flexion Right 65 ROM Limitations Soft Tissue Tightness Pain Comments Pain provoked mostly with extension, R sidebending Knee Goniometric Range of Motion Knee Measured in Degrees Left Knee ROM WFL Yes Ankle and Foot Goniometric Range of Motion Ankle and Foot Measured in Degrees Left Passive Ankle/Foot ROM WFL Yes PT-OP-L Special Tests Start: 02/21/18 15:30 Freq: Status: Active Protocol: Document 02/21/18 15:30 EA (Rec: 02/21/18 17:19 EA [id number]) Special Tests Lumbar Spine Special Tests Straight Leg Raise Test Results negative Other- 2 Test Results Sensitive: L sidebend & rotation Comments Posterior quadrant/facets joint Other- 1 Test Results sensitive to right Comments Compression S/L Compression Test Results Neg Comments ant/ supine Hip Special Tests DEEPAK Test Results Negative PT-OP-M Strength Start: 02/21/18 15:30 Freq: Status: Active Protocol: Document 02/21/18 15:33 EA (Rec: 02/21/18 16:00 EA [id number]) Trunk Strength Trunk Manual Muscle Testing Testing Position sup/prone/sitting Flexion 3 Fair Extension 3 Fair Rotation Left 3 Fair Rotation Right 3 Fair Lateral Flexion Left 3+ Fair+ Lateral Flexion Right 3+ Fair+ Hip Strength Hip Manual Muscle Testing Left Flexion (L2) 4- Good- Extension (S1) 4- Good- Abduction 4- Good- External Rotation 4+ Good+ Internal Rotation 4- Good- Comments RLE are WFL Knee Strength Knee Manual Muscle Testing Left Flexion (S2) 4- Good- Extension (L3) 5 Normal Comments R knee F/E are WFL Ankle/Foot Strength Ankle and Foot Manual Muscle Testing Left Dorsiflexion (L4) 3- Fair- Plantarflexion (S1) 4- Good- Inversion 3- Fair- Eversion (S1) 3- Fair- Comments R ankle DF/PF/INV/EV are WFL Toe Strength Toe Manual Muscle Testing Left Great Toe Flexion 2 Poor Extension 4- Good- Comments Toes 1st to 4th had tendon released due to hammer toes PT-OP-Q Treatments Start: 02/21/18 15:30 Freq: Status: Active Protocol: Document 03/30/18 14:30 RCC (Rec: 04/01/18 17:08 RCC [email or web address]) Cardio Equipment Recumbent Stepper (Sci-Fit) Duration (Minutes) 8 Resistance 3 Seat Position 12 Gym Equipment Shuttle Recovery Unilateral Squats Resistance 87, 100, 112# Reps/Time 12 reps each Shuttle Balance 1 Details RED- A/P normal and semi- tandem, lateral DL standing Reps/Duration 12 min Therapeutic Exercises Standing Exercises 2 Standing Exercise Name Half kneeling hip flexor stretch Gastroc Stretch Side bilateral Equipment Used FOREIGN Manual Therapy Treatment Soft Tissue Mobilization 1 Body Location B QL, paraspinals, hip flexors Mobilization Type Myofascial Release Strumming Sustained Pressure Trigger Point Release Intensity/Depth Moderate Body Position Prone Comments To start with efflleurage PT-OP-R Modalities Start: 02/21/18 15:30 Freq: Status: Active Protocol: Document 03/30/18 14:30 RCC (Rec: 04/01/18 17:08 RCC [email or web address]) Electric Stimulation Electric Stimulation Interferential Current (IFC) Body Location L low back Duration (Minutes) 15 Intensity 21 Patient Position Sitting Combined With Heat/Cold Hot Pack Comments Cross @ L SIJ PT-OP-T Assessment and Plan Start: 02/21/18 15:30 Freq: Status: Active Protocol: Document 03/30/18 14:30 RCC (Rec: 04/01/18 17:08 RCC [email or web address]) Physical Therapy Assessment Assessment Summary Assessment Pt with increased instability standing on Shuttle Balance Board, with increased tendency for weight shifting to the R with lateral balancing. Pt standing in more erect posture after session, increased stride length bilaterally with gait after manual therapy and IFC. Physical Therapy Plan Next Visit Focus/Plan Next Note Type Treatment Note Next Visit Plan standing hip extension, lateral step ups for SI joint stability
--- NOTE | 2018-04-02 12:16 | PT.OTN ---
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 Patient reports chronic localized low back pain more than ten years. Had multiple surgery to left ankle/foot due to infection, TA rupture; had L ACL reconstruction in 2002. MRI reveals Left gluteals tendinosis and hip joint OA. 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 Treatment Goals Patient/Caregiver Goals 1. Improve LLE flexibility and strength 2. Eliminate low back pain Prior Functional Status Baseline Function- ADL's Independent Baseline Function- Mobility Independent Baseline Function- Other Able to to perform floor lift > 30 lbs with no difficulty Current Functional Impairments (Reported) Functional Limitations- ADL's Lifting difficulty, decreased sitting position tolerance Unable to sleep more than 4 hours due to low back pain Personal Factors Other Personal Factors That May Effect Living situation: Patient Therapy/Recovery lives in the boat with low ceiling that requires a lot of trunk bending. PT-OP-C Subjective Start: 02/21/18 15:30 Freq: Status: Active Protocol: Document 04/02/18 10:32 EA (Rec: 04/02/18 11:15 EA [id number]) OP-PT Subjective Patient Comments Patient Comments Pt reports thsat he's lower back did not aggravted to the activites that mostl aggravated it; states both hi flexors are tight today. Pt reports last night he sleep well. Patient Reported Progress Improving PT-OP-D Balance Start: 02/21/18 15:30 Freq: Status: Active Protocol: Document 02/21/18 17:36 EA (Rec: 02/21/18 17:36 EA [id number]) OP-PT Balance Assessment Sitting Balance Static Sitting Balance Ability Good Dynamic Sitting Balance Ability Good Standing Balance Static Standing Balance Ability Good Dynamic Standing Balance Ability Good Balance Tests Single Limb Standing Single Limb- Right <3 seconds Single Limb- Left <2 seconds Shepherd Fall Scale Copyright Permission Joao JM, Joao RM, Silviano SJ. Development of a scale to identify the fall- prone patient. Can J Aging 1989;8;366-7. Macie Shepherd (2009). Preventing patient falls. (2nd ed). [place]: Shahid. PT-OP-G Mobility & Gait Start: 02/21/18 15:30 Freq: Status: Active Protocol: Document 02/21/18 15:33 EA (Rec: 02/21/18 16:00 EA [id number]) OP Mobility Evaluation Bed Mobility Rolling Indep with difficulty Supine to and from Sit Idenp w/ difficulty OP Gait Assessment Gait Gait Assistance Required: Independent Able to Maintain Weight Bearing Status Yes During Gait Assistive Devices Assistive Device None Factors Limiting Gait Function Factors Limiting Gait Function Decreased Strength Comments Gait Comments Left foot dropped moderately. PT-OP-J Posture/Palpation/Skin Start: 02/21/18 15:30 Freq: Status: Active Protocol: Document 02/21/18 15:33 EA (Rec: 02/21/18 16:00 EA [id number]) Posture Evaluation Position Standing Evaluation View Post/lat Head/C-Spine Posture Forward Head L-Spine Posture Flattened Decreased Lordosis Shoulder Posture (L) Rounded (R) Rounded Scapula Posture (L) Protracted (R) Protracted Pelvis Posture Posterior Tilted Ankle/Foot Posture (L) Forefoot Adducted Toe Posture (L) Clawed Toes (L) Extended Toes Comments Posture Comments Fair posture Palpation Assessment Location Two Palpation Location Tightness to left QL, both multifidus Palpation Findings Soft Tissue Tightness One Palpation Location Grade 2 tenderness to right SI joint, left paraspinals, L QL Palpation Findings Tenderness Palpation Details Grade 2 tenderness to right SI joint, left paraspinals PT-OP-K Range of Motion Start: 02/21/18 15:30 Freq: Status: Active Protocol: Document 02/21/18 15:33 EA (Rec: 02/21/18 16:00 EA [id number]) Lumbar Spine Range of Motion Lumbar Spine Active Percentage Testing Position standing Flexion 100 Extension 50 Rotation Left 75 Rotation Right 75 Lateral Flexion Left 70 Lateral Flexion Right 65 ROM Limitations Soft Tissue Tightness Pain Comments Pain provoked mostly with extension, R sidebending Knee Goniometric Range of Motion Knee Measured in Degrees Left Knee ROM WFL Yes Ankle and Foot Goniometric Range of Motion Ankle and Foot Measured in Degrees Left Passive Ankle/Foot ROM WFL Yes PT-OP-L Special Tests Start: 02/21/18 15:30 Freq: Status: Active Protocol: Document 02/21/18 15:30 EA (Rec: 02/21/18 17:19 EA [id number]) Special Tests Lumbar Spine Special Tests Straight Leg Raise Test Results negative Other- 2 Test Results Sensitive: L sidebend & rotation Comments Posterior quadrant/facets joint Other- 1 Test Results sensitive to right Comments Compression S/L Compression Test Results Neg Comments ant/ supine Hip Special Tests DEEPAK Test Results Negative PT-OP-M Strength Start: 02/21/18 15:30 Freq: Status: Active Protocol: Document 02/21/18 15:33 EA (Rec: 02/21/18 16:00 EA [id number]) Trunk Strength Trunk Manual Muscle Testing Testing Position sup/prone/sitting Flexion 3 Fair Extension 3 Fair Rotation Left 3 Fair Rotation Right 3 Fair Lateral Flexion Left 3+ Fair+ Lateral Flexion Right 3+ Fair+ Hip Strength Hip Manual Muscle Testing Left Flexion (L2) 4- Good- Extension (S1) 4- Good- Abduction 4- Good- External Rotation 4+ Good+ Internal Rotation 4- Good- Comments RLE are WFL Knee Strength Knee Manual Muscle Testing Left Flexion (S2) 4- Good- Extension (L3) 5 Normal Comments R knee F/E are WFL Ankle/Foot Strength Ankle and Foot Manual Muscle Testing Left Dorsiflexion (L4) 3- Fair- Plantarflexion (S1) 4- Good- Inversion 3- Fair- Eversion (S1) 3- Fair- Comments R ankle DF/PF/INV/EV are WFL Toe Strength Toe Manual Muscle Testing Left Great Toe Flexion 2 Poor Extension 4- Good- Comments Toes 1st to 4th had tendon released due to hammer toes PT-OP-Q Treatments Start: 02/21/18 15:30 Freq: Status: Active Protocol: Document 04/02/18 10:32 EA (Rec: 04/02/18 11:15 EA [id number]) Cardio Equipment Recumbent Stepper (Sci-Fit) Duration (Minutes) 8 Resistance 3 Seat Position 12 Gym Equipment Cable Column (Body Solid) Leg Extension Details single: left Resistance 20-30-50 Reps/Time 8-12 reps x 3 sets Shuttle Recovery Unilateral Squats Resistance 87, 100, 112# Reps/Time 12 reps each Shuttle Balance 1 Details RED- A/P normal and semi- tandem, lateral DL standing Reps/Duration 12 min Therapeutic Exercises Supine Exercises 6 Supine Exercise Name Hip ER stretch Comments Passive 5 Supine Exercise Name DKTC Reps/Minutes x 30SH x 3 reps Comments Manual assist 4 Supine Exercise Name SKTC Reps/Minutes x 30 SH x 3 reps each Comments Manual assist 2 Supine Exercise Name PPT with SLR Reps/Minutes x 10 reps x 2 sets bridging Side bilateral Comments Lv2 TB to hip ABD isomet Standing Exercises 2 Standing Exercise Name Half kneeling hip flexor stretch Gastroc Stretch Side bilateral Equipment Used FOREIGN 1 Standing Exercise Name Wall squat w/ PPT Reps/Minutes x 5sec hold x 10 reps Comments arm raises fwd Manual Therapy Treatment Soft Tissue Mobilization 1 Body Location B QL, paraspinals, hip flexors Mobilization Type Myofascial Release Strumming Sustained Pressure Trigger Point Release Intensity/Depth Moderate Body Position Prone PT-OP-R Modalities Start: 02/21/18 15:30 Freq: Status: Active Protocol: Document 04/02/18 12:05 EA (Rec: 04/02/18 12:07 EA [id number]) Electric Stimulation Electric Stimulation Interferential Current (IFC) Body Location L low back Duration (Minutes) 15 Intensity 21 Patient Position Sitting Combined With Heat/Cold Hot Pack Comments Cross @ L SIJ PT-OP-T Assessment and Plan Start: 02/21/18 15:30 Freq: Status: Active Protocol: Document 04/02/18 12:05 EA (Rec: 04/02/18 12:07 EA [id number]) Physical Therapy Assessment Assessment Summary Assessment Pt tolerated treatment with evidence of instability at shuttle balance; cues was necessary to engaged core for stability control. Tenderness to lower back is much improved . Discussed the importance of continues weight loss for low back improvement. Physical Therapy Plan Next Visit Focus/Plan Next Note Type Treatment Note Next Visit Plan standing hip extension, lateral step ups for SI joint stability
--- NOTE | 2018-04-04 13:54 | PT.OTN ---
Current Diagnoses Unilateral primary osteoarthritis, left hip (04/04/18) Low back pain (04/04/18) Gluteal tendinitis, left hip (04/04/18) Physical Therapy Treatment Note PT-OP-A Visit Information Start: 02/21/18 15:30 Freq: Status: Active Protocol: Document 04/04/18 12:57 EA (Rec: 04/04/18 13:02 EA [id number]) Out-Patient Physical Therapy Visit Information Visit Information Visit Type Treatment Note Visit Start Time 12:15 Visit Stop Time 13:00 Total Visit Minutes 45 Visit Number 16 Number of [employer] Visits 0 PT-OP-B Current Condition Start: 02/21/18 15:30 Freq: Status: Active Protocol: Document 02/21/18 15:33 EA (Rec: 02/21/18 16:00 EA [id number]) Current Condition History of Current Condition Onset Date 12/15/17 Current Complaints Low back pain History of Current Condition Present condition started to re-aggravated 2 months ago with no known reasons/injury. Patient reports chronic localized low back pain more than ten years. Had multiple surgery to left ankle/foot due to infection, TA rupture; had L ACL reconstruction in 2002. MRI reveals Left gluteals tendinosis and hip joint OA. 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 Treatment Goals Patient/Caregiver Goals 1. Improve LLE flexibility and strength 2. Eliminate low back pain Prior Functional Status Baseline Function- ADL's Independent Baseline Function- Mobility Independent Baseline Function- Other Able to to perform floor lift > 30 lbs with no difficulty Current Functional Impairments (Reported) Functional Limitations- ADL's Lifting difficulty, decreased sitting position tolerance Unable to sleep more than 4 hours due to low back pain Personal Factors Other Personal Factors That May Effect Living situation: Patient Therapy/Recovery lives in the boat with low ceiling that requires a lot of trunk bending. PT-OP-C Subjective Start: 02/21/18 15:30 Freq: Status: Active Protocol: Document 04/04/18 12:57 EA (Rec: 04/04/18 13:02 EA [id number]) OP-PT Subjective Patient Comments Patient Comments Pt reports pain to lower back is about 1/10 at most; states he feels much better at this time. PT-OP-D Balance Start: 02/21/18 15:30 Freq: Status: Active Protocol: Document 02/21/18 17:36 EA (Rec: 02/21/18 17:36 EA [id number]) OP-PT Balance Assessment Sitting Balance Static Sitting Balance Ability Good Dynamic Sitting Balance Ability Good Standing Balance Static Standing Balance Ability Good Dynamic Standing Balance Ability Good Balance Tests Single Limb Standing Single Limb- Right <3 seconds Single Limb- Left <2 seconds Shepherd Fall Scale Copyright Permission Joao JM, Joao RM, Silviano SJ. Development of a scale to identify the fall- prone patient. Can J Aging 1989;8;366-7. Macie Shepherd (2009). Preventing patient falls. (2nd ed). [place]: Shahid. PT-OP-G Mobility & Gait Start: 02/21/18 15:30 Freq: Status: Active Protocol: Document 02/21/18 15:33 EA (Rec: 02/21/18 16:00 EA [id number]) OP Mobility Evaluation Bed Mobility Rolling Indep with difficulty Supine to and from Sit Idenp w/ difficulty OP Gait Assessment Gait Gait Assistance Required: Independent Able to Maintain Weight Bearing Status Yes During Gait Assistive Devices Assistive Device None Factors Limiting Gait Function Factors Limiting Gait Function Decreased Strength Comments Gait Comments Left foot dropped moderately. PT-OP-J Posture/Palpation/Skin Start: 02/21/18 15:30 Freq: Status: Active Protocol: Document 02/21/18 15:33 EA (Rec: 02/21/18 16:00 EA [id number]) Posture Evaluation Position Standing Evaluation View Post/lat Head/C-Spine Posture Forward Head L-Spine Posture Flattened Decreased Lordosis Shoulder Posture (L) Rounded (R) Rounded Scapula Posture (L) Protracted (R) Protracted Pelvis Posture Posterior Tilted Ankle/Foot Posture (L) Forefoot Adducted Toe Posture (L) Clawed Toes (L) Extended Toes Comments Posture Comments Fair posture Palpation Assessment Location Two Palpation Location Tightness to left QL, both multifidus Palpation Findings Soft Tissue Tightness One Palpation Location Grade 2 tenderness to right SI joint, left paraspinals, L QL Palpation Findings Tenderness Palpation Details Grade 2 tenderness to right SI joint, left paraspinals PT-OP-K Range of Motion Start: 02/21/18 15:30 Freq: Status: Active Protocol: Document 02/21/18 15:33 EA (Rec: 02/21/18 16:00 EA [id number]) Lumbar Spine Range of Motion Lumbar Spine Active Percentage Testing Position standing Flexion 100 Extension 50 Rotation Left 75 Rotation Right 75 Lateral Flexion Left 70 Lateral Flexion Right 65 ROM Limitations Soft Tissue Tightness Pain Comments Pain provoked mostly with extension, R sidebending Knee Goniometric Range of Motion Knee Measured in Degrees Left Knee ROM WFL Yes Ankle and Foot Goniometric Range of Motion Ankle and Foot Measured in Degrees Left Passive Ankle/Foot ROM WFL Yes PT-OP-L Special Tests Start: 02/21/18 15:30 Freq: Status: Active Protocol: Document 02/21/18 15:30 EA (Rec: 02/21/18 17:19 EA [id number]) Special Tests Lumbar Spine Special Tests Straight Leg Raise Test Results negative Other- 2 Test Results Sensitive: L sidebend & rotation Comments Posterior quadrant/facets joint Other- 1 Test Results sensitive to right Comments Compression S/L Compression Test Results Neg Comments ant/ supine Hip Special Tests DEEPAK Test Results Negative PT-OP-M Strength Start: 02/21/18 15:30 Freq: Status: Active Protocol: Document 02/21/18 15:33 EA (Rec: 02/21/18 16:00 EA [id number]) Trunk Strength Trunk Manual Muscle Testing Testing Position sup/prone/sitting Flexion 3 Fair Extension 3 Fair Rotation Left 3 Fair Rotation Right 3 Fair Lateral Flexion Left 3+ Fair+ Lateral Flexion Right 3+ Fair+ Hip Strength Hip Manual Muscle Testing Left Flexion (L2) 4- Good- Extension (S1) 4- Good- Abduction 4- Good- External Rotation 4+ Good+ Internal Rotation 4- Good- Comments RLE are WFL Knee Strength Knee Manual Muscle Testing Left Flexion (S2) 4- Good- Extension (L3) 5 Normal Comments R knee F/E are WFL Ankle/Foot Strength Ankle and Foot Manual Muscle Testing Left Dorsiflexion (L4) 3- Fair- Plantarflexion (S1) 4- Good- Inversion 3- Fair- Eversion (S1) 3- Fair- Comments R ankle DF/PF/INV/EV are WFL Toe Strength Toe Manual Muscle Testing Left Great Toe Flexion 2 Poor Extension 4- Good- Comments Toes 1st to 4th had tendon released due to hammer toes PT-OP-Q Treatments Start: 02/21/18 15:30 Freq: Status: Active Protocol: Document 04/04/18 12:57 EA (Rec: 04/04/18 13:02 EA [id number]) Gym Equipment Cable Column (Body Solid) Leg Extension Resistance 5-7 plates Reps/Time 8-12 reps x 3 sets Shuttle Recovery Unilateral Squats Resistance 87, 100, 112# Reps/Time 12 reps each Shuttle Balance 1 Details RED- A/P normal and semi- tandem, lateral DL standing Reps/Duration 8min Therapeutic Exercises Supine Exercises 8 Supine Exercise Name Hamstring stretch Comments passive 6 Supine Exercise Name Hip ER stretch Comments Passive 5 Supine Exercise Name DKTC Reps/Minutes x 30SH x 3 reps Comments Manual assist 4 Supine Exercise Name SKTC Reps/Minutes x 30 SH x 3 reps each Comments Manual assist bridging Side bilateral Comments Lv2 TB to hip ABD isomet Standing Exercises 4 Standing Exercise Name Cable standing trunk rotation Side bilateral Resistance 10# Reps/Minutes x10 reps 3 Standing Exercise Name side step squat w/ heel raises Resistance GTB Reps/Minutes x 2 lines x 8 ft 2 Standing Exercise Name Half kneeling hip flexor stretch Gastroc Stretch Side bilateral Equipment Used FOREIGN 1 Standing Exercise Name Wall squat w/ PPT Reps/Minutes x 5sec hold x 10 reps Comments ball [place]ce pass Manual Therapy Treatment Soft Tissue Mobilization 1 Body Location B QL, paraspinals, hip flexors Mobilization Type Myofascial Release Strumming Sustained Pressure Trigger Point Release Intensity/Depth Moderate Body Position Prone PT-OP-R Modalities Start: 02/21/18 15:30 Freq: Status: Active Protocol: Document 04/04/18 12:57 EA (Rec: 04/04/18 13:02 EA [id number]) Electric Stimulation Electric Stimulation Interferential Current (IFC) Body Location L low back Duration (Minutes) 15 Intensity 24 Patient Position Sitting Combined With Heat/Cold Hot Pack Comments Cross @ L SIJ PT-OP-T Assessment and Plan Start: 02/21/18 15:30 Freq: Status: Active Protocol: Document 04/04/18 12:57 EA (Rec: 04/04/18 13:02 EA [id number]) Physical Therapy Assessment Assessment Summary Assessment Pt is progressing well; no discomfort during therex. Physical Therapy Plan Next Visit Focus/Plan Next Note Type Treatment Note Next Visit Plan standing hip extension, lateral step ups for SI joint stability
--- NOTE | 2018-04-06 12:53 | PT.OTN ---
Current Diagnoses Unilateral primary osteoarthritis, left hip (04/06/18) Low back pain (04/06/18) Gluteal tendinitis, left hip (04/06/18) Physical Therapy Treatment Note PT-OP-A Visit Information Start: 02/21/18 15:30 Freq: Status: Active Protocol: Document 04/06/18 12:53 RCC (Rec: 04/06/18 13:42 [facility] [email or web address]) Out-Patient Physical Therapy Visit Information Visit Information Visit Type Treatment Note Visit Start Time 12:00 Visit Stop Time 12:53 Total Visit Minutes 53 Visit Number 17 Number of DIRECTOR OF PUBLIC SAFETY Visits 0 Evaluation Information Evaluation Date 02/21/18 PT-OP-B Current Condition Start: 02/21/18 15:30 Freq: Status: Active Protocol: Document 02/21/18 15:33 EA (Rec: 02/21/18 16:00 EA [id number]) Current Condition History of Current Condition Onset Date 12/15/17 Current Complaints Low back pain History of Current Condition Present condition started to re-aggravated 2 months ago with no known reasons/injury. Patient reports chronic localized low back pain more than ten years. Had multiple surgery to left ankle/foot due to infection, TA rupture; had L ACL reconstruction in 2002. MRI reveals Left gluteals tendinosis and hip joint OA. 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 Treatment Goals Patient/Caregiver Goals 1. Improve LLE flexibility and strength 2. Eliminate low back pain Prior Functional Status Baseline Function- ADL's Independent Baseline Function- Mobility Independent Baseline Function- Other Able to to perform floor lift > 30 lbs with no difficulty Current Functional Impairments (Reported) Functional Limitations- ADL's Lifting difficulty, decreased sitting position tolerance Unable to sleep more than 4 hours due to low back pain Personal Factors Other Personal Factors That May Effect Living situation: Patient Therapy/Recovery lives in the boat with low ceiling that requires a lot of trunk bending. PT-OP-C Subjective Start: 02/21/18 15:30 Freq: Status: Active Protocol: Document 04/06/18 12:53 RCC (Rec: 04/06/18 13:42 RCC [id number]) OP-PT Subjective Patient Comments Patient Comments Pt notes that he felt well enough to bike here to the clinic today, but still has occasional pain during sleep. PT-OP-D Balance Start: 02/21/18 15:30 Freq: Status: Active Protocol: Document 02/21/18 17:36 EA (Rec: 02/21/18 17:36 EA [id number]) OP-PT Balance Assessment Sitting Balance Static Sitting Balance Ability Good Dynamic Sitting Balance Ability Good Standing Balance Static Standing Balance Ability Good Dynamic Standing Balance Ability Good Balance Tests Single Limb Standing Single Limb- Right <3 seconds Single Limb- Left <2 seconds Joao Fall Scale Copyright Permission Joao JM, Joao RM, Silviano SJ. Development of a scale to identify the fall- prone patient. Can J Aging 1989;8;366-7. Macie Shepherd (2009). Preventing patient falls. (2nd ed). [place]: Shahid. PT-OP-G Mobility & Gait Start: 02/21/18 15:30 Freq: Status: Active Protocol: Document 02/21/18 15:33 EA (Rec: 02/21/18 16:00 EA [id number]) OP Mobility Evaluation Bed Mobility Rolling Indep with difficulty Supine to and from Sit Idenp w/ difficulty OP Gait Assessment Gait Gait Assistance Required: Independent Able to Maintain Weight Bearing Status Yes During Gait Assistive Devices Assistive Device None Factors Limiting Gait Function Factors Limiting Gait Function Decreased Strength Comments Gait Comments Left foot dropped moderately. PT-OP-J Posture/Palpation/Skin Start: 02/21/18 15:30 Freq: Status: Active Protocol: Document 02/21/18 15:33 EA (Rec: 02/21/18 16:00 EA [id number]) Posture Evaluation Position Standing Evaluation View Post/lat Head/C-Spine Posture Forward Head L-Spine Posture Flattened Decreased Lordosis Shoulder Posture (L) Rounded (R) Rounded Scapula Posture (L) Protracted (R) Protracted Pelvis Posture Posterior Tilted Ankle/Foot Posture (L) Forefoot Adducted Toe Posture (L) Clawed Toes (L) Extended Toes Comments Posture Comments Fair posture Palpation Assessment Location Two Palpation Location Tightness to left QL, both multifidus Palpation Findings Soft Tissue Tightness One Palpation Location Grade 2 tenderness to right SI joint, left paraspinals, L QL Palpation Findings Tenderness Palpation Details Grade 2 tenderness to right SI joint, left paraspinals PT-OP-K Range of Motion Start: 02/21/18 15:30 Freq: Status: Active Protocol: Document 02/21/18 15:33 EA (Rec: 02/21/18 16:00 EA [id number]) Lumbar Spine Range of Motion Lumbar Spine Active Percentage Testing Position standing Flexion 100 Extension 50 Rotation Left 75 Rotation Right 75 Lateral Flexion Left 70 Lateral Flexion Right 65 ROM Limitations Soft Tissue Tightness Pain Comments Pain provoked mostly with extension, R sidebending Knee Goniometric Range of Motion Knee Measured in Degrees Left Knee ROM WFL Yes Ankle and Foot Goniometric Range of Motion Ankle and Foot Measured in Degrees Left Passive Ankle/Foot ROM WFL Yes PT-OP-L Special Tests Start: 02/21/18 15:30 Freq: Status: Active Protocol: Document 02/21/18 15:30 EA (Rec: 02/21/18 17:19 EA [id number]) Special Tests Lumbar Spine Special Tests Straight Leg Raise Test Results negative Other- 2 Test Results Sensitive: L sidebend & rotation Comments Posterior quadrant/facets joint Other- 1 Test Results sensitive to right Comments Compression S/L Compression Test Results Neg Comments ant/ supine Hip Special Tests DEEPAK Test Results Negative PT-OP-M Strength Start: 02/21/18 15:30 Freq: Status: Active Protocol: Document 02/21/18 15:33 EA (Rec: 02/21/18 16:00 EA [id number]) Trunk Strength Trunk Manual Muscle Testing Testing Position sup/prone/sitting Flexion 3 Fair Extension 3 Fair Rotation Left 3 Fair Rotation Right 3 Fair Lateral Flexion Left 3+ Fair+ Lateral Flexion Right 3+ Fair+ Hip Strength Hip Manual Muscle Testing Left Flexion (L2) 4- Good- Extension (S1) 4- Good- Abduction 4- Good- External Rotation 4+ Good+ Internal Rotation 4- Good- Comments RLE are WFL Knee Strength Knee Manual Muscle Testing Left Flexion (S2) 4- Good- Extension (L3) 5 Normal Comments R knee F/E are WFL Ankle/Foot Strength Ankle and Foot Manual Muscle Testing Left Dorsiflexion (L4) 3- Fair- Plantarflexion (S1) 4- Good- Inversion 3- Fair- Eversion (S1) 3- Fair- Comments R ankle DF/PF/INV/EV are WFL Toe Strength Toe Manual Muscle Testing Left Great Toe Flexion 2 Poor Extension 4- Good- Comments Toes 1st to 4th had tendon released due to hammer toes PT-OP-Q Treatments Start: 02/21/18 15:30 Freq: Status: Active Protocol: Document 04/06/18 12:53 [facility] (Rec: 04/06/18 13:42 [facility] [id number]) Gym Equipment Shuttle Recovery Unilateral Squats Resistance 87, 100, 112# Reps/Time 12 reps each Shuttle Balance 1 Details RED- A/P normal and semi- tandem, lateral DL standing Reps/Duration 10 min Therapeutic Exercises Supine Exercises PPT Reps/Minutes 10 each Comments hooklying and supine; tactile cuing Hip flexor stretch Supine Exercise Name supine and half kneeling Side bilateral Comments 60 sec hold stretch 6 Supine Exercise Name Hip ER stretch Comments Passive Standing Exercises HS stretch Side bilateral Equipment Used stairs hip hike Standing Exercise Name hip hike, lateral step up Side bilateral Equipment Used 6 steps Reps/Minutes 10 each Comments tactile cuing 2 Standing Exercise Name Half kneeling hip flexor stretch Gastroc Stretch Side bilateral Equipment Used stairs PT-OP-R Modalities Start: 02/21/18 15:30 Freq: Status: Active Protocol: Document 04/06/18 12:53 [facility] (Rec: 04/06/18 13:42 [facility] [id number]) Electric Stimulation Electric Stimulation Interferential Current (IFC) Body Location L low back Duration (Minutes) 15 Intensity 23 Patient Position Sitting Combined With Heat/Cold Hot Pack Comments Cross @ L SIJ PT-OP-T Assessment and Plan Start: 02/21/18 15:30 Freq: Status: Active Protocol: Document 04/06/18 12:53 [facility] (Rec: 04/06/18 13:42 [facility] [id number]) Physical Therapy Assessment Assessment Summary Assessment Pt with difficulty performing posterior pelvic tilt and hip hiking without tactile cuing and demonstration. Increased time required to perform these activities, and will require further training to assist with pelvic and core stability . Physical Therapy Plan Next Visit Focus/Plan Next Note Type Treatment Note Next Visit Plan standing hip extension training with PPT/postural alignment.
--- NOTE | 2018-04-09 17:37 | PT.OTN ---
Current Diagnoses Unilateral primary osteoarthritis, left hip (04/09/18) Low back pain (04/09/18) Gluteal tendinitis, left hip (04/09/18) Physical Therapy Treatment Note PT-OP-A Visit Information Start: 02/21/18 15:30 Freq: Status: Active Protocol: Document 04/09/18 16:45 DCW (Rec: 04/09/18 17:37 DCW [id number]) Out-Patient Physical Therapy Visit Information Visit Information Visit Type Treatment Note Visit Start Time 16:45 Visit Stop Time 17:45 Total Visit Minutes 60 Visit Number 18 Number of POACHER OPERATOR Visits 0 Evaluation Information Evaluation Date 02/21/18 PT-OP-B Current Condition Start: 02/21/18 15:30 Freq: Status: Active Protocol: Document 02/21/18 15:33 EA (Rec: 02/21/18 16:00 EA [id number]) Current Condition History of Current Condition Onset Date 12/15/17 Current Complaints Low back pain History of Current Condition Present condition started to re-aggravated 2 months ago with no known reasons/injury. Patient reports chronic localized low back pain more than ten years. Had multiple surgery to left ankle/foot due to infection, TA rupture; had L ACL reconstruction in 2002. MRI reveals Left gluteals tendinosis and hip joint OA. 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 Treatment Goals Patient/Caregiver Goals 1. Improve LLE flexibility and strength 2. Eliminate low back pain Prior Functional Status Baseline Function- ADL's Independent Baseline Function- Mobility Independent Baseline Function- Other Able to to perform floor lift > 30 lbs with no difficulty Current Functional Impairments (Reported) Functional Limitations- ADL's Lifting difficulty, decreased sitting position tolerance Unable to sleep more than 4 hours due to low back pain Personal Factors Other Personal Factors That May Effect Living situation: Patient Therapy/Recovery lives in the boat with low ceiling that requires a lot of trunk bending. PT-OP-C Subjective Start: 02/21/18 15:30 Freq: Status: Active Protocol: Document 04/09/18 16:45 DCW (Rec: 04/09/18 17:37 DCW [id number]) OP-PT Subjective Patient Comments Patient Comments Pt reports he aggravated his back over the weekend, noting his left low back just spasmed over the weekend while he was making dinner. Notes that he was doing very well prior to that, and thinks that this is just a bump in the road. PT-OP-D Balance Start: 02/21/18 15:30 Freq: Status: Active Protocol: Document 02/21/18 17:36 EA (Rec: 02/21/18 17:36 EA [id number]) OP-PT Balance Assessment Sitting Balance Static Sitting Balance Ability Good Dynamic Sitting Balance Ability Good Standing Balance Static Standing Balance Ability Good Dynamic Standing Balance Ability Good Balance Tests Single Limb Standing Single Limb- Right <3 seconds Single Limb- Left <2 seconds Shepherd Fall Scale Copyright Permission Joao MILLS, Joao RM, Silviano SJ. Development of a scale to identify the fall- prone patient. Can J Aging 1989;8;366-7. Macie Shepherd (2009). Preventing patient falls. (2nd ed). [place]: Shahid. PT-OP-G Mobility & Gait Start: 02/21/18 15:30 Freq: Status: Active Protocol: Document 02/21/18 15:33 EA (Rec: 02/21/18 16:00 EA [id number]) OP Mobility Evaluation Bed Mobility Rolling Indep with difficulty Supine to and from Sit Idenp w/ difficulty OP Gait Assessment Gait Gait Assistance Required: Independent Able to Maintain Weight Bearing Status Yes During Gait Assistive Devices Assistive Device None Factors Limiting Gait Function Factors Limiting Gait Function Decreased Strength Comments Gait Comments Left foot dropped moderately. PT-OP-J Posture/Palpation/Skin Start: 02/21/18 15:30 Freq: Status: Active Protocol: Document 02/21/18 15:33 EA (Rec: 02/21/18 16:00 EA [id number]) Posture Evaluation Position Standing Evaluation View Post/lat Head/C-Spine Posture Forward Head L-Spine Posture Flattened Decreased Lordosis Shoulder Posture (L) Rounded (R) Rounded Scapula Posture (L) Protracted (R) Protracted Pelvis Posture Posterior Tilted Ankle/Foot Posture (L) Forefoot Adducted Toe Posture (L) Clawed Toes (L) Extended Toes Comments Posture Comments Fair posture Palpation Assessment Location Two Palpation Location Tightness to left QL, both multifidus Palpation Findings Soft Tissue Tightness One Palpation Location Grade 2 tenderness to right SI joint, left paraspinals, L QL Palpation Findings Tenderness Palpation Details Grade 2 tenderness to right SI joint, left paraspinals PT-OP-K Range of Motion Start: 02/21/18 15:30 Freq: Status: Active Protocol: Document 02/21/18 15:33 EA (Rec: 02/21/18 16:00 EA [id number]) Lumbar Spine Range of Motion Lumbar Spine Active Percentage Testing Position standing Flexion 100 Extension 50 Rotation Left 75 Rotation Right 75 Lateral Flexion Left 70 Lateral Flexion Right 65 ROM Limitations Soft Tissue Tightness Pain Comments Pain provoked mostly with extension, R sidebending Knee Goniometric Range of Motion Knee Measured in Degrees Left Knee ROM WFL Yes Ankle and Foot Goniometric Range of Motion Ankle and Foot Measured in Degrees Left Passive Ankle/Foot ROM WFL Yes PT-OP-L Special Tests Start: 02/21/18 15:30 Freq: Status: Active Protocol: Document 02/21/18 15:30 EA (Rec: 02/21/18 17:19 EA [id number]) Special Tests Lumbar Spine Special Tests Straight Leg Raise Test Results negative Other- 2 Test Results Sensitive: L sidebend & rotation Comments Posterior quadrant/facets joint Other- 1 Test Results sensitive to right Comments Compression S/L Compression Test Results Neg Comments ant/ supine Hip Special Tests DEEPAK Test Results Negative PT-OP-M Strength Start: 02/21/18 15:30 Freq: Status: Active Protocol: Document 02/21/18 15:33 EA (Rec: 02/21/18 16:00 EA [id number]) Trunk Strength Trunk Manual Muscle Testing Testing Position sup/prone/sitting Flexion 3 Fair Extension 3 Fair Rotation Left 3 Fair Rotation Right 3 Fair Lateral Flexion Left 3+ Fair+ Lateral Flexion Right 3+ Fair+ Hip Strength Hip Manual Muscle Testing Left Flexion (L2) 4- Good- Extension (S1) 4- Good- Abduction 4- Good- External Rotation 4+ Good+ Internal Rotation 4- Good- Comments RLE are WFL Knee Strength Knee Manual Muscle Testing Left Flexion (S2) 4- Good- Extension (L3) 5 Normal Comments R knee F/E are WFL Ankle/Foot Strength Ankle and Foot Manual Muscle Testing Left Dorsiflexion (L4) 3- Fair- Plantarflexion (S1) 4- Good- Inversion 3- Fair- Eversion (S1) 3- Fair- Comments R ankle DF/PF/INV/EV are WFL Toe Strength Toe Manual Muscle Testing Left Great Toe Flexion 2 Poor Extension 4- Good- Comments Toes 1st to 4th had tendon released due to hammer toes PT-OP-Q Treatments Start: 02/21/18 15:30 Freq: Status: Active Protocol: Document 04/09/18 16:45 DCW (Rec: 04/09/18 17:37 DCW [id number]) Cardio Equipment Recumbent Stepper (Sci-Fit) Duration (Minutes) 6 Resistance 4 Seat Position 14 Gym Equipment Shuttle Recovery Unilateral Squats Resistance 112, 125# Reps/Time 12 reps each Shuttle Balance 1 Details RED- A/P normal and semi- tandem, lateral DL standing Reps/Duration 10 min Therapeutic Ball Lower Trunk Rotation Exercise Details Low Trunk Rotation /c legs on ball Ball Size/Color Red -55 cm Body Position Supine Bridging Exercise Details Bridging /c feet on T-ball Ball Size/Color Red - 55 cm Body Position Supine Therapeutic Exercises Supine Exercises 8 Supine Exercise Name Hamstring stretch Comments passive 6 Supine Exercise Name Hip ER stretch Comments Passive 5 Supine Exercise Name DKTC Reps/Minutes x 30SH x 3 reps Comments Manual assist 4 Supine Exercise Name SKTC Reps/Minutes x 30 SH x 3 reps each Comments Manual assist Other Exercises Cat/Camel Other Exercise Name Cat/Camel in Quadruped PT-OP-R Modalities Start: 02/21/18 15:30 Freq: Status: Active Protocol: Document 04/09/18 16:45 DCW (Rec: 04/09/18 17:37 DCW [id number]) Electric Stimulation Electric Stimulation Interferential Current (IFC) Body Location L low back Duration (Minutes) 15 Intensity 23 Patient Position Sitting Combined With Heat/Cold Hot Pack Comments Cross @ L SIJ PT-OP-T Assessment and Plan Start: 02/21/18 15:30 Freq: Status: Active Protocol: Document 04/09/18 16:45 DCW (Rec: 04/09/18 17:37 DCW [id number]) Physical Therapy Assessment Goals Five Impairment Impaired ankle strength Long-Term Goal (LTG) Patient will increase Ankle strength to decrease gait abnormality LTG Duration 4 wks Four Impairment Impaired lifting ability Electrical Maintenance Engineer Goal (LTG) Patient will increase lifting ability to more than 30 lbs with proper body mechanics with no increase in back symptoms LTG Duration 4 wks Three Impairment Impaired Lumbosacral ROM Electrical Maintenance Engineer Goal (LTG) Patient will improve lumbosacral ROM to normal range LTG Duration 4 wks Two Impairment Impaired Trunk strength Electrical Maintenance Engineer Goal (LTG) Patient will increase trunk strength to 4-/5 to decrease muscular imbalance and improve functional mobility LTG Duration 4 wks One Impairment Oswestry Impairment score of 23/50 Long-Term Goal (LTG) Patient will have Oswestry impairment scale score of 10/ 50 LTG Duration 4 wks Assessment Summary Assessment Pt improving with mobility and strength, no notable increased tone, even with pt's complaints of a mild flare-up . Physical Therapy Plan Frequency and Duration Frequency of Treatment 2x/Week Plan of Care Start Date 02/21/18 Plan of Care End Date 04/18/18 Next Visit Focus/Plan Next Note Type Treatment Note Next Visit Plan standing hip extension training with PPT/postural alignment.
--- NOTE | 2018-04-11 15:11 | PT.OTN ---
Current Diagnoses Unilateral primary osteoarthritis, left hip (04/11/18) Low back pain (04/11/18) Gluteal tendinitis, left hip (04/11/18) Physical Therapy Treatment Note PT-OP-A Visit Information Start: 02/21/18 15:30 Freq: Status: Active Protocol: Document 04/11/18 14:30 EA (Rec: 04/11/18 14:36 EA [id number]) Out-Patient Physical Therapy Visit Information Visit Information Visit Type Treatment Note Visit Start Time 13:45 Visit Stop Time 14:30 Total Visit Minutes 45 Visit Number 19 PT-OP-B Current Condition Start: 02/21/18 15:30 Freq: Status: Active Protocol: Document 02/21/18 15:33 EA (Rec: 02/21/18 16:00 EA [id number]) Current Condition History of Current Condition Onset Date 12/15/17 Current Complaints Low back pain History of Current Condition Present condition started to re-aggravated 2 months ago with no known reasons/injury. Patient reports chronic localized low back pain more than ten years. Had multiple surgery to left ankle/foot due to infection, TA rupture; had L ACL reconstruction in 2002. MRI reveals Left gluteals tendinosis and hip joint OA. 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 Treatment Goals Patient/Caregiver Goals 1. Improve LLE flexibility and strength 2. Eliminate low back pain Prior Functional Status Baseline Function- ADL's Independent Baseline Function- Mobility Independent Baseline Function- Other Able to to perform floor lift > 30 lbs with no difficulty Current Functional Impairments (Reported) Functional Limitations- ADL's Lifting difficulty, decreased sitting position tolerance Unable to sleep more than 4 hours due to low back pain Personal Factors Other Personal Factors That May Effect Living situation: Patient Therapy/Recovery lives in the boat with low ceiling that requires a lot of trunk bending. PT-OP-C Subjective Start: 02/21/18 15:30 Freq: Status: Active Protocol: Document 04/11/18 14:30 EA (Rec: 04/11/18 14:36 EA [id number]) OP-PT Subjective Patient Comments Patient Comments Pt reports left upper gluteals is quite sore after last session; initial complaint of pain to low back is much feeling better at this time. PT-OP-D Balance Start: 02/21/18 15:30 Freq: Status: Active Protocol: Document 02/21/18 17:36 EA (Rec: 02/21/18 17:36 EA [id number]) OP-PT Balance Assessment Sitting Balance Static Sitting Balance Ability Good Dynamic Sitting Balance Ability Good Standing Balance Static Standing Balance Ability Good Dynamic Standing Balance Ability Good Balance Tests Single Limb Standing Single Limb- Right <3 seconds Single Limb- Left <2 seconds Shepherd Fall Scale Copyright Permission Joao JM, Joao RM, Silviano SJ. Development of a scale to identify the fall- prone patient. Can J Aging 1989;8;366-7. Macie Shepherd (2009). Preventing patient falls. (2nd ed). [place]: Shahid. PT-OP-G Mobility & Gait Start: 02/21/18 15:30 Freq: Status: Active Protocol: Document 02/21/18 15:33 EA (Rec: 02/21/18 16:00 EA [id number]) OP Mobility Evaluation Bed Mobility Rolling Indep with difficulty Supine to and from Sit Idenp w/ difficulty OP Gait Assessment Gait Gait Assistance Required: Independent Able to Maintain Weight Bearing Status Yes During Gait Assistive Devices Assistive Device None Factors Limiting Gait Function Factors Limiting Gait Function Decreased Strength Comments Gait Comments Left foot dropped moderately. PT-OP-J Posture/Palpation/Skin Start: 02/21/18 15:30 Freq: Status: Active Protocol: Document 02/21/18 15:33 EA (Rec: 02/21/18 16:00 EA [id number]) Posture Evaluation Position Standing Evaluation View Post/lat Head/C-Spine Posture Forward Head L-Spine Posture Flattened Decreased Lordosis Shoulder Posture (L) Rounded (R) Rounded Scapula Posture (L) Protracted (R) Protracted Pelvis Posture Posterior Tilted Ankle/Foot Posture (L) Forefoot Adducted Toe Posture (L) Clawed Toes (L) Extended Toes Comments Posture Comments Fair posture Palpation Assessment Location Two Palpation Location Tightness to left QL, both multifidus Palpation Findings Soft Tissue Tightness One Palpation Location Grade 2 tenderness to right SI joint, left paraspinals, L QL Palpation Findings Tenderness Palpation Details Grade 2 tenderness to right SI joint, left paraspinals PT-OP-K Range of Motion Start: 02/21/18 15:30 Freq: Status: Active Protocol: Document 02/21/18 15:33 EA (Rec: 02/21/18 16:00 EA [id number]) Lumbar Spine Range of Motion Lumbar Spine Active Percentage Testing Position standing Flexion 100 Extension 50 Rotation Left 75 Rotation Right 75 Lateral Flexion Left 70 Lateral Flexion Right 65 ROM Limitations Soft Tissue Tightness Pain Comments Pain provoked mostly with extension, R sidebending Knee Goniometric Range of Motion Knee Measured in Degrees Left Knee ROM WFL Yes Ankle and Foot Goniometric Range of Motion Ankle and Foot Measured in Degrees Left Passive Ankle/Foot ROM WFL Yes PT-OP-L Special Tests Start: 02/21/18 15:30 Freq: Status: Active Protocol: Document 02/21/18 15:30 EA (Rec: 02/21/18 17:19 EA [id number]) Special Tests Lumbar Spine Special Tests Straight Leg Raise Test Results negative Other- 2 Test Results Sensitive: L sidebend & rotation Comments Posterior quadrant/facets joint Other- 1 Test Results sensitive to right Comments Compression S/L Compression Test Results Neg Comments ant/ supine Hip Special Tests DEEPAK Test Results Negative PT-OP-M Strength Start: 02/21/18 15:30 Freq: Status: Active Protocol: Document 02/21/18 15:33 EA (Rec: 02/21/18 16:00 EA [id number]) Trunk Strength Trunk Manual Muscle Testing Testing Position sup/prone/sitting Flexion 3 Fair Extension 3 Fair Rotation Left 3 Fair Rotation Right 3 Fair Lateral Flexion Left 3+ Fair+ Lateral Flexion Right 3+ Fair+ Hip Strength Hip Manual Muscle Testing Left Flexion (L2) 4- Good- Extension (S1) 4- Good- Abduction 4- Good- External Rotation 4+ Good+ Internal Rotation 4- Good- Comments RLE are WFL Knee Strength Knee Manual Muscle Testing Left Flexion (S2) 4- Good- Extension (L3) 5 Normal Comments R knee F/E are WFL Ankle/Foot Strength Ankle and Foot Manual Muscle Testing Left Dorsiflexion (L4) 3- Fair- Plantarflexion (S1) 4- Good- Inversion 3- Fair- Eversion (S1) 3- Fair- Comments R ankle DF/PF/INV/EV are WFL Toe Strength Toe Manual Muscle Testing Left Great Toe Flexion 2 Poor Extension 4- Good- Comments Toes 1st to 4th had tendon released due to hammer toes PT-OP-Q Treatments Start: 02/21/18 15:30 Freq: Status: Active Protocol: Document 04/11/18 14:30 EA (Rec: 04/11/18 14:36 EA [id number]) Cardio Equipment Recumbent Stepper (Sci-Fit) Duration (Minutes) 6 Resistance 4 Seat Position 14 Therapeutic Exercises Supine Exercises PPT Reps/Minutes 10 each Comments hooklying and supine; tactile cuing Hip flexor stretch Supine Exercise Name supine and half kneeling Side bilateral Comments 60 sec hold stretch 8 Supine Exercise Name Hamstring stretch Comments passive 6 Supine Exercise Name Hip ER stretch Comments Passive 5 Supine Exercise Name DKTC Reps/Minutes x 30SH x 3 reps Comments Manual assist 4 Supine Exercise Name SKTC Reps/Minutes x 30 SH x 3 reps each Comments Manual assist bridging Side bilateral Comments Green T-bal Standing Exercises Gastroc Stretch Side bilateral Equipment Used stairs Manual Therapy Treatment Soft Tissue Mobilization 1 Body Location B QL, paraspinals, Upper gluteal Mobilization Type Myofascial Release Strumming Sustained Pressure Trigger Point Release Intensity/Depth Moderate Body Position Prone PT-OP-R Modalities Start: 02/21/18 15:30 Freq: Status: Active Protocol: Document 04/11/18 14:30 EA (Rec: 04/11/18 14:36 EA [id number]) Electric Stimulation Electric Stimulation Interferential Current (IFC) Body Location L low back Duration (Minutes) 15 Intensity 24 Patient Position Sitting Combined With Heat/Cold Hot Pack Comments Cross @ L SIJ PT-OP-T Assessment and Plan Start: 02/21/18 15:30 Freq: Status: Active Protocol: Document 04/11/18 14:30 EA (Rec: 04/11/18 14:36 EA [id number]) Physical Therapy Assessment Assessment Summary Assessment Tolerated treament well with minor discomfort noted during manual therapy. Physical Therapy Plan Next Visit Focus/Plan Next Note Type Treatment Note
--- NOTE | 2018-04-13 12:20 | PT.OTN ---
Current Diagnoses Unilateral primary osteoarthritis, left hip (04/13/18) Low back pain (04/13/18) Gluteal tendinitis, left hip (04/13/18) Physical Therapy Treatment Note PT-OP-A Visit Information Start: 02/21/18 15:30 Freq: Status: Active Protocol: Document 04/13/18 12:13 SA (Rec: 04/13/18 12:20 SA [id number]) Out-Patient Physical Therapy Visit Information Visit Information Visit Type Treatment Note Visit Start Time 09:45 Visit Stop Time 10:32 Total Visit Minutes 47 Visit Number 20 Number of TROUT FARMER Visits 1 PT-OP-B Current Condition Start: 02/21/18 15:30 Freq: Status: Active Protocol: Document 02/21/18 15:33 EA (Rec: 02/21/18 16:00 EA [id number]) Current Condition History of Current Condition Onset Date 12/15/17 Current Complaints Low back pain History of Current Condition Present condition started to re-aggravated 2 months ago with no known reasons/injury. Patient reports chronic localized low back pain more than ten years. Had multiple surgery to left ankle/foot due to infection, TA rupture; had L ACL reconstruction in 2002. MRI reveals Left gluteals tendinosis and hip joint OA. 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 Treatment Goals Patient/Caregiver Goals 1. Improve LLE flexibility and strength 2. Eliminate low back pain Prior Functional Status Baseline Function- ADL's Independent Baseline Function- Mobility Independent Baseline Function- Other Able to to perform floor lift > 30 lbs with no difficulty Current Functional Impairments (Reported) Functional Limitations- ADL's Lifting difficulty, decreased sitting position tolerance Unable to sleep more than 4 hours due to low back pain Personal Factors Other Personal Factors That May Effect Living situation: Patient Therapy/Recovery lives in the boat with low ceiling that requires a lot of trunk bending. PT-OP-C Subjective Start: 02/21/18 15:30 Freq: Status: Active Protocol: Document 04/13/18 12:13 SA (Rec: 04/13/18 12:20 SA [email or web address]) OP-PT Subjective Patient Comments Patient Comments Pt reports feeling good today with some stiffness this morning but improved with HP and stretching. PT-OP-D Balance Start: 02/21/18 15:30 Freq: Status: Active Protocol: Document 02/21/18 17:36 EA (Rec: 02/21/18 17:36 EA [id number]) OP-PT Balance Assessment Sitting Balance Static Sitting Balance Ability Good Dynamic Sitting Balance Ability Good Standing Balance Static Standing Balance Ability Good Dynamic Standing Balance Ability Good Balance Tests Single Limb Standing Single Limb- Right <3 seconds Single Limb- Left <2 seconds Joao Fall Scale Copyright Permission Joao JM, Joao RM, Silviano SJ. Development of a scale to identify the fall- prone patient. Can J Aging 1989;8;366-7. Macie Shepherd (2009). Preventing patient falls. (2nd ed). [place]: Shahid. PT-OP-G Mobility & Gait Start: 02/21/18 15:30 Freq: Status: Active Protocol: Document 02/21/18 15:33 EA (Rec: 02/21/18 16:00 EA [id number]) OP Mobility Evaluation Bed Mobility Rolling Indep with difficulty Supine to and from Sit Idenp w/ difficulty OP Gait Assessment Gait Gait Assistance Required: Independent Able to Maintain Weight Bearing Status Yes During Gait Assistive Devices Assistive Device None Factors Limiting Gait Function Factors Limiting Gait Function Decreased Strength Comments Gait Comments Left foot dropped moderately. PT-OP-J Posture/Palpation/Skin Start: 02/21/18 15:30 Freq: Status: Active Protocol: Document 02/21/18 15:33 EA (Rec: 02/21/18 16:00 EA [id number]) Posture Evaluation Position Standing Evaluation View Post/lat Head/C-Spine Posture Forward Head L-Spine Posture Flattened Decreased Lordosis Shoulder Posture (L) Rounded (R) Rounded Scapula Posture (L) Protracted (R) Protracted Pelvis Posture Posterior Tilted Ankle/Foot Posture (L) Forefoot Adducted Toe Posture (L) Clawed Toes (L) Extended Toes Comments Posture Comments Fair posture Palpation Assessment Location Two Palpation Location Tightness to left QL, both multifidus Palpation Findings Soft Tissue Tightness One Palpation Location Grade 2 tenderness to right SI joint, left paraspinals, L QL Palpation Findings Tenderness Palpation Details Grade 2 tenderness to right SI joint, left paraspinals PT-OP-K Range of Motion Start: 02/21/18 15:30 Freq: Status: Active Protocol: Document 02/21/18 15:33 EA (Rec: 02/21/18 16:00 EA [id number]) Lumbar Spine Range of Motion Lumbar Spine Active Percentage Testing Position standing Flexion 100 Extension 50 Rotation Left 75 Rotation Right 75 Lateral Flexion Left 70 Lateral Flexion Right 65 ROM Limitations Soft Tissue Tightness Pain Comments Pain provoked mostly with extension, R sidebending Knee Goniometric Range of Motion Knee Measured in Degrees Left Knee ROM WFL Yes Ankle and Foot Goniometric Range of Motion Ankle and Foot Measured in Degrees Left Passive Ankle/Foot ROM WFL Yes PT-OP-L Special Tests Start: 02/21/18 15:30 Freq: Status: Active Protocol: Document 02/21/18 15:30 EA (Rec: 02/21/18 17:19 EA [id number]) Special Tests Lumbar Spine Special Tests Straight Leg Raise Test Results negative Other- 2 Test Results Sensitive: L sidebend & rotation Comments Posterior quadrant/facets joint Other- 1 Test Results sensitive to right Comments Compression S/L Compression Test Results Neg Comments ant/ supine Hip Special Tests DEEPAK Test Results Negative PT-OP-M Strength Start: 02/21/18 15:30 Freq: Status: Active Protocol: Document 02/21/18 15:33 EA (Rec: 02/21/18 16:00 EA [id number]) Trunk Strength Trunk Manual Muscle Testing Testing Position sup/prone/sitting Flexion 3 Fair Extension 3 Fair Rotation Left 3 Fair Rotation Right 3 Fair Lateral Flexion Left 3+ Fair+ Lateral Flexion Right 3+ Fair+ Hip Strength Hip Manual Muscle Testing Left Flexion (L2) 4- Good- Extension (S1) 4- Good- Abduction 4- Good- External Rotation 4+ Good+ Internal Rotation 4- Good- Comments RLE are WFL Knee Strength Knee Manual Muscle Testing Left Flexion (S2) 4- Good- Extension (L3) 5 Normal Comments R knee F/E are WFL Ankle/Foot Strength Ankle and Foot Manual Muscle Testing Left Dorsiflexion (L4) 3- Fair- Plantarflexion (S1) 4- Good- Inversion 3- Fair- Eversion (S1) 3- Fair- Comments R ankle DF/PF/INV/EV are WFL Toe Strength Toe Manual Muscle Testing Left Great Toe Flexion 2 Poor Extension 4- Good- Comments Toes 1st to 4th had tendon released due to hammer toes PT-OP-Q Treatments Start: 02/21/18 15:30 Freq: Status: Active Protocol: Document 04/13/18 12:13 SA (Rec: 04/13/18 12:20 SA [email or web address]) Cardio Equipment Recumbent Stepper (Sci-Fit) Duration (Minutes) 6 Resistance 4 Seat Position 14 Gym Equipment Shuttle Recovery Unilateral Squats Resistance 112, 125# Reps/Time 12 reps each Shuttle Balance 1 Details RED- A/P normal and semi- tandem, lateral DL standing Reps/Duration 10 min Therapeutic Ball Lower Trunk Rotation Exercise Details Low Trunk Rotation /c legs on ball Ball Size/Color Red -55 cm Body Position Supine Bridging Exercise Details Bridging /c feet on T-ball Ball Size/Color Red - 55 cm Body Position Supine Therapeutic Exercises Supine Exercises PPT Reps/Minutes 10 each Comments hooklying and supine; tactile cuing Hip flexor stretch Supine Exercise Name supine and half kneeling Side bilateral Comments 60 sec hold stretch 4 Supine Exercise Name SKTC Reps/Minutes x 30 SH x 3 reps each Comments Manual assist bridging Side bilateral Comments Green T-bal Standing Exercises Gastroc Stretch Side bilateral Equipment Used stairs Manual Therapy Treatment Soft Tissue Mobilization 1 Body Location B QL, paraspinals, Upper gluteal Mobilization Type Myofascial Release Strumming Sustained Pressure Trigger Point Release Intensity/Depth Moderate Body Position Prone PT-OP-R Modalities Start: 02/21/18 15:30 Freq: Status: Active Protocol: Document 04/11/18 14:30 EA (Rec: 04/11/18 14:36 EA [id number]) Electric Stimulation Electric Stimulation Interferential Current (IFC) Body Location L low back Duration (Minutes) 15 Intensity 24 Patient Position Sitting Combined With Heat/Cold Hot Pack Comments Cross @ L SIJ PT-OP-T Assessment and Plan Start: 02/21/18 15:30 Freq: Status: Active Protocol: Document 04/13/18 12:13 SA (Rec: 04/13/18 12:20 SA [email or web address]) Physical Therapy Assessment Progress Towards Goals Progress Towards Goals Progressing Toward Goals Assessment Summary Assessment Pt progressing well with decreased symptoms and good exercise tolerance. Physical Therapy Plan Next Visit Focus/Plan Next Note Type Treatment Note Next Visit Plan Continue to progress core and hip strengthening as tolerated , assess use of roller on ITB.
--- NOTE | 2018-04-16 14:40 | PT.OTN ---
Current Diagnoses Unilateral primary osteoarthritis, left hip (04/16/18) Low back pain (04/16/18) Gluteal tendinitis, left hip (04/16/18) Physical Therapy Treatment Note PT-OP-A Visit Information Start: 02/21/18 15:30 Freq: Status: Active Protocol: Document 04/16/18 12:56 EA (Rec: 04/16/18 13:47 EA [id number]) Out-Patient Physical Therapy Visit Information Visit Information Visit Type Treatment Note Visit Start Time 13:00 Visit Stop Time 13:45 Total Visit Minutes 45 Visit Number 21 Number of AUTOCUTTER Visits 1 PT-OP-B Current Condition Start: 02/21/18 15:30 Freq: Status: Active Protocol: Document 02/21/18 15:33 EA (Rec: 02/21/18 16:00 EA [id number]) Current Condition History of Current Condition Onset Date 12/15/17 Current Complaints Low back pain History of Current Condition Present condition started to re-aggravated 2 months ago with no known reasons/injury. Patient reports chronic localized low back pain more than ten years. Had multiple surgery to left ankle/foot due to infection, TA rupture; had L ACL reconstruction in 2002. MRI reveals Left gluteals tendinosis and hip joint OA. 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 Treatment Goals Patient/Caregiver Goals 1. Improve LLE flexibility and strength 2. Eliminate low back pain Prior Functional Status Baseline Function- ADL's Independent Baseline Function- Mobility Independent Baseline Function- Other Able to to perform floor lift > 30 lbs with no difficulty Current Functional Impairments (Reported) Functional Limitations- ADL's Lifting difficulty, decreased sitting position tolerance Unable to sleep more than 4 hours due to low back pain Personal Factors Other Personal Factors That May Effect Living situation: Patient Therapy/Recovery lives in the boat with low ceiling that requires a lot of trunk bending. PT-OP-C Subjective Start: 02/21/18 15:30 Freq: Status: Active Protocol: Document 04/16/18 14:28 EA (Rec: 04/16/18 14:32 EA [id number]) OP-PT Subjective Patient Comments Patient Comments Pt reports pain is not much the issue in the past weeks until 2 days [place] and [place]; states pain increased to low back but disappears after using cart. Patient Reported Progress Improving PT-OP-D Balance Start: 02/21/18 15:30 Freq: Status: Active Protocol: Document 02/21/18 17:36 EA (Rec: 02/21/18 17:36 EA [id number]) OP-PT Balance Assessment Sitting Balance Static Sitting Balance Ability Good Dynamic Sitting Balance Ability Good Standing Balance Static Standing Balance Ability Good Dynamic Standing Balance Ability Good Balance Tests Single Limb Standing Single Limb- Right <3 seconds Single Limb- Left <2 seconds Shepherd Fall Scale Copyright Permission Joao JM, Joao RM, Silviano SJ. Development of a scale to identify the fall- prone patient. Can J Aging 1989;8;366-7. Macie Shepherd (2009). Preventing patient falls. (2nd ed). [place]: Shahid. PT-OP-G Mobility & Gait Start: 02/21/18 15:30 Freq: Status: Active Protocol: Document 02/21/18 15:33 EA (Rec: 02/21/18 16:00 EA [id number]) OP Mobility Evaluation Bed Mobility Rolling Indep with difficulty Supine to and from Sit Idenp w/ difficulty OP Gait Assessment Gait Gait Assistance Required: Independent Able to Maintain Weight Bearing Status Yes During Gait Assistive Devices Assistive Device None Factors Limiting Gait Function Factors Limiting Gait Function Decreased Strength Comments Gait Comments Left foot dropped moderately. PT-OP-J Posture/Palpation/Skin Start: 02/21/18 15:30 Freq: Status: Active Protocol: Document 02/21/18 15:33 EA (Rec: 02/21/18 16:00 EA [id number]) Posture Evaluation Position Standing Evaluation View Post/lat Head/C-Spine Posture Forward Head L-Spine Posture Flattened Decreased Lordosis Shoulder Posture (L) Rounded (R) Rounded Scapula Posture (L) Protracted (R) Protracted Pelvis Posture Posterior Tilted Ankle/Foot Posture (L) Forefoot Adducted Toe Posture (L) Clawed Toes (L) Extended Toes Comments Posture Comments Fair posture Palpation Assessment Location Two Palpation Location Tightness to left QL, both multifidus Palpation Findings Soft Tissue Tightness One Palpation Location Grade 2 tenderness to right SI joint, left paraspinals, L QL Palpation Findings Tenderness Palpation Details Grade 2 tenderness to right SI joint, left paraspinals PT-OP-K Range of Motion Start: 02/21/18 15:30 Freq: Status: Active Protocol: Document 02/21/18 15:33 EA (Rec: 02/21/18 16:00 EA [id number]) Lumbar Spine Range of Motion Lumbar Spine Active Percentage Testing Position standing Flexion 100 Extension 50 Rotation Left 75 Rotation Right 75 Lateral Flexion Left 70 Lateral Flexion Right 65 ROM Limitations Soft Tissue Tightness Pain Comments Pain provoked mostly with extension, R sidebending Knee Goniometric Range of Motion Knee Measured in Degrees Left Knee ROM WFL Yes Ankle and Foot Goniometric Range of Motion Ankle and Foot Measured in Degrees Left Passive Ankle/Foot ROM WFL Yes PT-OP-L Special Tests Start: 02/21/18 15:30 Freq: Status: Active Protocol: Document 02/21/18 15:30 EA (Rec: 02/21/18 17:19 EA [id number]) Special Tests Lumbar Spine Special Tests Straight Leg Raise Test Results negative Other- 2 Test Results Sensitive: L sidebend & rotation Comments Posterior quadrant/facets joint Other- 1 Test Results sensitive to right Comments Compression S/L Compression Test Results Neg Comments ant/ supine Hip Special Tests DEEPAK Test Results Negative PT-OP-M Strength Start: 02/21/18 15:30 Freq: Status: Active Protocol: Document 02/21/18 15:33 EA (Rec: 02/21/18 16:00 EA [id number]) Trunk Strength Trunk Manual Muscle Testing Testing Position sup/prone/sitting Flexion 3 Fair Extension 3 Fair Rotation Left 3 Fair Rotation Right 3 Fair Lateral Flexion Left 3+ Fair+ Lateral Flexion Right 3+ Fair+ Hip Strength Hip Manual Muscle Testing Left Flexion (L2) 4- Good- Extension (S1) 4- Good- Abduction 4- Good- External Rotation 4+ Good+ Internal Rotation 4- Good- Comments RLE are WFL Knee Strength Knee Manual Muscle Testing Left Flexion (S2) 4- Good- Extension (L3) 5 Normal Comments R knee F/E are WFL Ankle/Foot Strength Ankle and Foot Manual Muscle Testing Left Dorsiflexion (L4) 3- Fair- Plantarflexion (S1) 4- Good- Inversion 3- Fair- Eversion (S1) 3- Fair- Comments R ankle DF/PF/INV/EV are WFL Toe Strength Toe Manual Muscle Testing Left Great Toe Flexion 2 Poor Extension 4- Good- Comments Toes 1st to 4th had tendon released due to hammer toes PT-OP-Q Treatments Start: 02/21/18 15:30 Freq: Status: Active Protocol: Document 04/16/18 12:56 EA (Rec: 04/16/18 13:47 EA [id number]) Cardio Equipment Recumbent Stepper (Sci-Fit) Duration (Minutes) 6 Resistance 4 Seat Position 14 Gym Equipment Cable Column (Body Solid) Other- 1 Details Cable upper trunk rot Resistance x 10 reps each side Reps/Time at 10 lbs Leg Extension Resistance 4-5-6 plates Reps/Time x 12 reps x 3 sets Shuttle Recovery Unilateral Squats Resistance 112, 125# Reps/Time 12 reps each Shuttle Balance 1 Details Blue: Squat x 10 reps x 2 sets Reps/Duration 5 Therapeutic Ball Lower Trunk Rotation Exercise Details Low Trunk Rotation /c legs on ball Ball Size/Color Red -55 cm Body Position Supine Bridging Exercise Details Bridging /c feet on T-ball Ball Size/Color Red - 55 cm Body Position Supine Therapeutic Exercises Supine Exercises PPT Reps/Minutes 10 each Comments hooklying and supine; tactile cuing 8 Supine Exercise Name Hamstring stretch Comments passive 6 Supine Exercise Name Hip ER stretch Comments Passive 4 Supine Exercise Name SKTC Reps/Minutes x 30 SH x 3 reps each Comments Manual assist Standing Exercises HS stretch Standing Exercise Name side steps squat with heel raises Resistance GTB Reps/Minutes x 7 each steps each side Gastroc Stretch Side bilateral Equipment Used stairs 1 Standing Exercise Name Wall squat with PPT Reps/Minutes x 5 reps x 5SH Manual Therapy Treatment Soft Tissue Mobilization 1 Body Location B QL, paraspinals, Upper gluteal Mobilization Type Myofascial Release Strumming Sustained Pressure Trigger Point Release Intensity/Depth Moderate Body Position Prone PT-OP-R Modalities Start: 02/21/18 15:30 Freq: Status: Active Protocol: Document 04/16/18 12:56 EA (Rec: 04/16/18 13:47 EA [id number]) Electric Stimulation Electric Stimulation Interferential Current (IFC) Body Location L low back Duration (Minutes) 15 Intensity 24 Patient Position Sitting Combined With Heat/Cold Hot Pack Comments Cross @ L SIJ PT-OP-T Assessment and Plan Start: 02/21/18 15:30 Freq: Status: Active Protocol: Document 04/16/18 14:28 EA (Rec: 04/16/18 14:32 EA [id number]) Physical Therapy Assessment Assessment Summary Assessment Improved functional mobility and exercises tolerance with no signs of discomfort; left ankle DF still weak and patient agreeable to focus next session for strengthening of DF. Over all patient is progressing well. Physical Therapy Plan Next Visit Focus/Plan Next Note Type Re-Evaluation
--- NOTE | 2018-04-18 15:54 | PT.OTRE ---
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) Sleep apnea (Chronic 2004) Toe ulcer (Chronic) Chickenpox (Resolved 1957) H/O methicillin resistant Staphylococcus aureus infection (Resolved 2003) Open toe wound (Resolved Unknown) Vertigo (Resolved Unknown) Surgical History (Last Reviewed 02/04/18 @ 03:47 by Rajinder Miranda DO) H/O Achilles tendon repair (Resolved 2003) Hx of surgical procedure (Resolved ~05/2017) Hx of tonsillectomy (Resolved ~1951) S/P ACL repair (Resolved 2005) Provider Visit Care Team Role Provider Type Natasha Carrasco PA-C Attending Provider Advanced Conveyor Technician Family Provider Primary Care Provider Specialty: Medical Address: [address] [place] [address] Email: [email or web address] Physical Therapy Re-Evaluation PT-OP-A Visit Information Start: 02/21/18 15:30 Freq: Status: Active Protocol: Document 04/18/18 15:17 EA (Rec: 04/18/18 15:31 EA [id number]) Out-Patient Physical Therapy Visit Information Visit Information Visit Type Treatment Note Visit Start Time 13:00 Visit Stop Time 13:38 Total Visit Minutes 38 Visit Number 22 Number of MICROWAVE ENGINEER Visits 1 PT-OP-B Current Condition Start: 02/21/18 15:30 Freq: Status: Active Protocol: Document 02/21/18 15:33 EA (Rec: 02/21/18 16:00 EA [id number]) Current Condition History of Current Condition Onset Date 12/15/17 Current Complaints Low back pain History of Current Condition Present condition started to re-aggravated 2 months ago with no known reasons/injury. Patient reports chronic localized low back pain more than ten years. Had multiple surgery to left ankle/foot due to infection, TA rupture; had L ACL reconstruction in 2002. MRI reveals Left gluteals tendinosis and hip joint OA. 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 Treatment Goals Patient/Caregiver Goals 1. Improve LLE flexibility and strength 2. Eliminate low back pain Prior Functional Status Baseline Function- ADL's Independent Baseline Function- Mobility Independent Baseline Function- Other Able to to perform floor lift > 30 lbs with no difficulty Current Functional Impairments (Reported) Functional Limitations- ADL's Lifting difficulty, decreased sitting position tolerance Unable to sleep more than 4 hours due to low back pain Personal Factors Other Personal Factors That May Effect Living situation: Patient Therapy/Recovery lives in the boat with low ceiling that requires a lot of trunk bending. PT-OP-C Subjective Start: 02/21/18 15:30 Freq: Status: Active Protocol: Document 04/18/18 15:17 EA (Rec: 04/18/18 15:31 EA [id number]) OP-PT Subjective Patient Comments Patient Comments Pt reports less than 10 secs left leg cramps happen while sitting in the library 3 days ago; states it happens to him last 3 years ago. Pt reports that overall he feels much improved with his lower back issue. Patient reports that he wants focus at this time improving his left ankle strength as he feels that is starting bother him while walking. Patient Reported Progress Improving Patient Questionnaires Oswestry Low Back Index Oswestry Score 12 Oswestry Impairment 1 to 19% Impaired (Score 1-19) PT-OP-D Balance Start: 02/21/18 15:30 Freq: Status: Active Protocol: Document 02/21/18 17:36 EA (Rec: 02/21/18 17:36 EA [id number]) OP-PT Balance Assessment Sitting Balance Static Sitting Balance Ability Good Dynamic Sitting Balance Ability Good Standing Balance Static Standing Balance Ability Good Dynamic Standing Balance Ability Good Balance Tests Single Limb Standing Single Limb- Right <3 seconds Single Limb- Left <2 seconds Shepherd Fall Scale Copyright Permission Joao MILLS, Joao RM, Silviano SJ. Development of a scale to identify the fall- prone patient. Can J Aging 1989;8;366-7. Macie Shepherd (2009). Preventing patient falls. (2nd ed). [place]: Shahid. PT-OP-G Mobility & Gait Start: 02/21/18 15:30 Freq: Status: Active Protocol: Document 02/21/18 15:33 EA (Rec: 02/21/18 16:00 EA [id number]) OP Mobility Evaluation Bed Mobility Rolling Indep with difficulty Supine to and from Sit Idenp w/ difficulty OP Gait Assessment Gait Gait Assistance Required: Independent Able to Maintain Weight Bearing Status Yes During Gait Assistive Devices Assistive Device None Factors Limiting Gait Function Factors Limiting Gait Function Decreased Strength Comments Gait Comments Left foot dropped moderately. PT-OP-J Posture/Palpation/Skin Start: 02/21/18 15:30 Freq: Status: Active Protocol: Document 02/21/18 15:33 EA (Rec: 02/21/18 16:00 EA [id number]) Posture Evaluation Position Standing Evaluation View Post/lat Head/C-Spine Posture Forward Head L-Spine Posture Flattened Decreased Lordosis Shoulder Posture (L) Rounded (R) Rounded Scapula Posture (L) Protracted (R) Protracted Pelvis Posture Posterior Tilted Ankle/Foot Posture (L) Forefoot Adducted Toe Posture (L) Clawed Toes (L) Extended Toes Comments Posture Comments Fair posture Palpation Assessment Location Two Palpation Location Tightness to left QL, both multifidus Palpation Findings Soft Tissue Tightness One Palpation Location Grade 2 tenderness to right SI joint, left paraspinals, L QL Palpation Findings Tenderness Palpation Details Grade 2 tenderness to right SI joint, left paraspinals PT-OP-K Range of Motion Start: 02/21/18 15:30 Freq: Status: Active Protocol: Document 04/18/18 15:36 EA (Rec: 04/18/18 15:40 EA [id number]) Lumbar Spine Range of Motion Lumbar Spine Active Percentage Testing Position standing Flexion 100 Extension 70 Rotation Left 85 Rotation Right 85 Lateral Flexion Left 90 Lateral Flexion Right 90 ROM Limitations Soft Tissue Tightness PT-OP-L Special Tests Start: 02/21/18 15:30 Freq: Status: Active Protocol: Document 02/21/18 15:30 EA (Rec: 02/21/18 17:19 EA [id number]) Special Tests Lumbar Spine Special Tests Straight Leg Raise Test Results negative Other- 2 Test Results Sensitive: L sidebend & rotation Comments Posterior quadrant/facets joint Other- 1 Test Results sensitive to right Comments Compression S/L Compression Test Results Neg Comments ant/ supine Hip Special Tests DEEPAK Test Results Negative PT-OP-M Strength Start: 02/21/18 15:30 Freq: Status: Active Protocol: Document 04/18/18 15:36 EA (Rec: 04/18/18 15:40 EA [id number]) Trunk Strength Trunk Manual Muscle Testing Testing Position sup/prone/sitting Flexion 4- Good- Extension 4- Good- Rotation Left 4- Good- Rotation Right 4- Good- Lateral Flexion Left 4- Good- Lateral Flexion Right 4- Good- Hip Strength Hip Manual Muscle Testing Left Flexion (L2) 4 Good Extension (S1) 4 Good Abduction 4 Good External Rotation 4+ Good+ Internal Rotation 4- Good- Comments RLE are WFL Knee Strength Knee Manual Muscle Testing Left Flexion (S2) 4+ Good+ Extension (L3) 5 Normal Comments R knee F/E are WFL Ankle/Foot Strength Ankle and Foot Manual Muscle Testing Left Dorsiflexion (L4) 3 Fair Plantarflexion (S1) 4- Good- Inversion 3- Fair- Eversion (S1) 3- Fair- Comments R ankle DF/PF/INV/EV are WFL PT-OP-Q Treatments Start: 02/21/18 15:30 Freq: Status: Active Protocol: Document 04/18/18 15:17 EA (Rec: 04/18/18 15:31 EA [id number]) Cardio Equipment Recumbent Stepper (Sci-Fit) Duration (Minutes) 6 Resistance 4 Seat Position 14 Other 50-70 RPM mod interval x 3 Gym Equipment Cable Column (Body Solid) Leg Extension Resistance 7 plates Reps/Time x 8-12 reps x 3 sets Shuttle Recovery Unilateral Squats Resistance 112, 125# Reps/Time 12 reps each Shuttle Balance 1 Details Blue: Squat x 10 reps x 2 sets Reps/Duration 5 Therapeutic Ball Bridging Exercise Details Bridging /c feet on T-ball Ball Size/Color Red - 55 cm Body Position Supine Therapeutic Exercises Supine Exercises PPT Supine Exercise Name Marching with PPT Reps/Minutes 10 each x 3 sets 8 Supine Exercise Name Hamstring stretch Comments passive 6 Supine Exercise Name Hip ER stretch Comments Passive Sitting Exercises 1 Sitting Exercise Name Left ankle: DF, Evertors, Inv Side left Resistance Lv 1 Reps/Minutes x 10 reps x 2 Standing Exercises Gastroc Stretch Side bilateral Equipment Used stairs PT-OP-R Modalities Start: 02/21/18 15:30 Freq: Status: Active Protocol: Document 04/18/18 15:17 EA (Rec: 04/18/18 15:31 EA [id number]) Hot Pack/Cold Pack Treatment Hot Pack Location paralumbars Treatment Duration (minutes) 15 Patient Tolerance Good PT-OP-T Assessment and Plan Start: 02/21/18 15:30 Freq: Status: Active Protocol: Document 04/18/18 15:17 EA (Rec: 04/18/18 15:31 EA [id number]) Physical Therapy Assessment Goals Five Impairment Impaired ankle strength Detention Goal (LTG) Patient will increase Ankle strength to decrease gait abnormality LTG Duration 4 wks improving Four Impairment Impaired lifting ability Detention Goal (LTG) Patient will increase lifting ability to more than 30 lbs with proper body mechanics with no increase in back symptoms LTG Duration 4 wks (improving) Three Impairment Impaired Lumbosacral ROM Detention Goal (LTG) Patient will improve lumbosacral ROM to normal range LTG Duration 4 wks (excellent improvement) Two Impairment Impaired Trunk strength Cnc Mill Operator Goal (LTG) Patient will increase trunk strength to 4-/5 to decrease muscular imbalance and improve functional mobility LTG Duration 4 wks One Impairment Oswestry Impairment score of 23/50 Detention Goal (LTG) Patient will have Oswestry impairment scale score of 10/ 50 LTG Duration 4 wks (improving 12/50) Progress Towards Goals Progress Towards Goals Progressing Toward Goals Assessment Summary Assessment Patient has seen since and had multiple treatment for lower back issue. Currently patient has shown improved functional mobility and activity tolerance with no discomfort noted during therapeutic session. Patient will continue to benefit with skilled PT to address the issue of LLE weakness particularly with the foot dropped which could possibly influencing the lower back issue. Physical Therapy Plan Frequency and Duration Frequency of Treatment 2x/Week Duration of Treatment 6 wks Plan of Care Start Date 02/16/18 Plan of Care End Date 05/30/18 Therapeutic Interventions Therapeutic Interventions Home Exercise Program Joint Mobilizations Neuromuscular Re-education Patient/Caregiver Education Self-Care/Home Management Soft Tissue Mobilization Therapeutic Exercises Modalities Cold Pack/Ice Massage Electric Stimulation Hot Packs Infrared Therapy Ultrasound Next Visit Focus/Plan Next Note Type Treatment Note Next Visit Plan Focus on LLE strengthening.
--- NOTE | 2018-04-18 15:56 | PT.OPPOC ---
Current Diagnoses Unilateral primary osteoarthritis, left hip (04/18/18) Low back pain (04/18/18) Gluteal tendinitis, left hip (04/18/18) Provider Visit Care Team Role Provider Type Natasha Carrasco PA-C Attending Provider Advanced Chief Accountant Family Provider Primary Care Provider Specialty: Medical Address: [address] [place] [address], [id number] Email: [email or web address] Plan Of Care PT-OP-T Assessment and Plan Start: 02/21/18 15:30 Freq: Status: Active Protocol: Document 04/18/18 15:17 EA (Rec: 04/18/18 15:31 EA [id number]) Physical Therapy Assessment Goals Five Impairment Impaired ankle strength [facility] Goal (LTG) Patient will increase Ankle strength to decrease gait abnormality LTG Duration 4 wks improving Four Impairment Impaired lifting ability [facility] Goal (LTG) Patient will increase lifting ability to more than 30 lbs with proper body mechanics with no increase in back symptoms LTG Duration 4 wks (improving) Three Impairment Impaired Lumbosacral ROM [facility] Goal (LTG) Patient will improve lumbosacral ROM to normal range LTG Duration 4 wks (excellent improvement) Two Impairment Impaired Trunk strength Counseling Services Manager Goal (LTG) Patient will increase trunk strength to 4-/5 to decrease muscular imbalance and improve functional mobility LTG Duration 4 wks One Impairment Oswestry Impairment score of 23/50 Counseling Services Manager Goal (LTG) Patient will have Oswestry impairment scale score of 10/ 50 LTG Duration 4 wks (improving 12/50) Progress Towards Goals Progress Towards Goals Progressing Toward Goals Assessment Summary Assessment Patient has seen since and had multiple treatment for lower back issue. Currently patient has shown improved functional mobility and activity tolerance with no discomfort noted during therapeutic session. Patient will continue to benefit with skilled PT to address the issue of LLE weakness particularly with the foot dropped which could possibly influencing the lower back issue. Physical Therapy Plan Frequency and Duration Frequency of Treatment 2x/Week Duration of Treatment 6 wks Plan of Care Start Date 02/16/18 Plan of Care End Date 05/30/18 Therapeutic Interventions Therapeutic Interventions Home Exercise Program Joint Mobilizations Neuromuscular Re-education Patient/Caregiver Education Self-Care/Home Management Soft Tissue Mobilization Therapeutic Exercises Modalities Cold Pack/Ice Massage Electric Stimulation Hot Packs Infrared Therapy Ultrasound Next Visit Focus/Plan Next Note Type Treatment Note Next Visit Plan Focus on LLE strengthening. Plan of Care Dates Plan of Care Start Date 02/16/18 Plan of Care End Date 05/30/18 Please Sign and Return: I have reviewed this Plan of Care and certify that the skilled therapy services above are required to meet the patient?s needs. Physician Signature Date Printed Name and Credentials Clinical Instructor Signature Printed Name and Credentials
--- NOTE | 2018-04-20 14:53 | PT.OTN ---
Current Diagnoses Unilateral primary osteoarthritis, left hip (04/20/18) Low back pain (04/20/18) Gluteal tendinitis, left hip (04/20/18) Physical Therapy Treatment Note PT-OP-A Visit Information Start: 02/21/18 15:30 Freq: Status: Active Protocol: Document 04/20/18 01:45 HH (Rec: 04/20/18 14:53 HH [email or web address]) Out-Patient Physical Therapy Visit Information Visit Information Visit Type Treatment Note Visit Start Time 13:45 Visit Stop Time 14:30 Total Visit Minutes 45 Visit Number 23 Number of DIESEL PLANT OPERATOR Visits 1 PT-OP-B Current Condition Start: 02/21/18 15:30 Freq: Status: Active Protocol: Document 02/21/18 15:33 EA (Rec: 02/21/18 16:00 EA [id number]) Current Condition History of Current Condition Onset Date 12/15/17 Current Complaints Low back pain History of Current Condition Present condition started to re-aggravated 2 months ago with no known reasons/injury. Patient reports chronic localized low back pain more than ten years. Had multiple surgery to left ankle/foot due to infection, TA rupture; had L ACL reconstruction in 2002. MRI reveals Left gluteals tendinosis and hip joint OA. 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 Treatment Goals Patient/Caregiver Goals 1. Improve LLE flexibility and strength 2. Eliminate low back pain Prior Functional Status Baseline Function- ADL's Independent Baseline Function- Mobility Independent Baseline Function- Other Able to to perform floor lift > 30 lbs with no difficulty Current Functional Impairments (Reported) Functional Limitations- ADL's Lifting difficulty, decreased sitting position tolerance Unable to sleep more than 4 hours due to low back pain Personal Factors Other Personal Factors That May Effect Living situation: Patient Therapy/Recovery lives in the boat with low ceiling that requires a lot of trunk bending. PT-OP-C Subjective Start: 02/21/18 15:30 Freq: Status: Active Protocol: Document 04/20/18 01:45 HH (Rec: 04/20/18 14:53 HH [email or web address]) OP-PT Subjective Patient Comments Patient Comments Pt reports he does not have any back pain lately. He is compliant to HE. PT-OP-D Balance Start: 02/21/18 15:30 Freq: Status: Active Protocol: Document 02/21/18 17:36 EA (Rec: 02/21/18 17:36 EA [id number]) OP-PT Balance Assessment Sitting Balance Static Sitting Balance Ability Good Dynamic Sitting Balance Ability Good Standing Balance Static Standing Balance Ability Good Dynamic Standing Balance Ability Good Balance Tests Single Limb Standing Single Limb- Right <3 seconds Single Limb- Left <2 seconds Joao Fall Scale Copyright Permission Joao JM, Joao RM, Silviano SJ. Development of a scale to identify the fall- prone patient. Can J Aging 1989;8;366-7. Macie Shepherd (2009). Preventing patient falls. (2nd ed). [place]: Shahid. PT-OP-G Mobility & Gait Start: 02/21/18 15:30 Freq: Status: Active Protocol: Document 02/21/18 15:33 EA (Rec: 02/21/18 16:00 EA [id number]) OP Mobility Evaluation Bed Mobility Rolling Indep with difficulty Supine to and from Sit Idenp w/ difficulty OP Gait Assessment Gait Gait Assistance Required: Independent Able to Maintain Weight Bearing Status Yes During Gait Assistive Devices Assistive Device None Factors Limiting Gait Function Factors Limiting Gait Function Decreased Strength Comments Gait Comments Left foot dropped moderately. PT-OP-J Posture/Palpation/Skin Start: 02/21/18 15:30 Freq: Status: Active Protocol: Document 02/21/18 15:33 EA (Rec: 02/21/18 16:00 EA [id number]) Posture Evaluation Position Standing Evaluation View Post/lat Head/C-Spine Posture Forward Head L-Spine Posture Flattened Decreased Lordosis Shoulder Posture (L) Rounded (R) Rounded Scapula Posture (L) Protracted (R) Protracted Pelvis Posture Posterior Tilted Ankle/Foot Posture (L) Forefoot Adducted Toe Posture (L) Clawed Toes (L) Extended Toes Comments Posture Comments Fair posture Palpation Assessment Location Two Palpation Location Tightness to left QL, both multifidus Palpation Findings Soft Tissue Tightness One Palpation Location Grade 2 tenderness to right SI joint, left paraspinals, L QL Palpation Findings Tenderness Palpation Details Grade 2 tenderness to right SI joint, left paraspinals PT-OP-K Range of Motion Start: 02/21/18 15:30 Freq: Status: Active Protocol: Document 04/18/18 15:36 EA (Rec: 04/18/18 15:40 EA [id number]) Lumbar Spine Range of Motion Lumbar Spine Active Percentage Testing Position standing Flexion 100 Extension 70 Rotation Left 85 Rotation Right 85 Lateral Flexion Left 90 Lateral Flexion Right 90 ROM Limitations Soft Tissue Tightness PT-OP-L Special Tests Start: 02/21/18 15:30 Freq: Status: Active Protocol: Document 02/21/18 15:30 EA (Rec: 02/21/18 17:19 EA [id number]) Special Tests Lumbar Spine Special Tests Straight Leg Raise Test Results negative Other- 2 Test Results Sensitive: L sidebend & rotation Comments Posterior quadrant/facets joint Other- 1 Test Results sensitive to right Comments Compression S/L Compression Test Results Neg Comments ant/ supine Hip Special Tests DEEPAK Test Results Negative PT-OP-M Strength Start: 02/21/18 15:30 Freq: Status: Active Protocol: Document 04/18/18 15:36 EA (Rec: 04/18/18 15:40 EA [id number]) Trunk Strength Trunk Manual Muscle Testing Testing Position sup/prone/sitting Flexion 4- Good- Extension 4- Good- Rotation Left 4- Good- Rotation Right 4- Good- Lateral Flexion Left 4- Good- Lateral Flexion Right 4- Good- Hip Strength Hip Manual Muscle Testing Left Flexion (L2) 4 Good Extension (S1) 4 Good Abduction 4 Good External Rotation 4+ Good+ Internal Rotation 4- Good- Comments RLE are WFL Knee Strength Knee Manual Muscle Testing Left Flexion (S2) 4+ Good+ Extension (L3) 5 Normal Comments R knee F/E are WFL Ankle/Foot Strength Ankle and Foot Manual Muscle Testing Left Dorsiflexion (L4) 3 Fair Plantarflexion (S1) 4- Good- Inversion 3- Fair- Eversion (S1) 3- Fair- Comments R ankle DF/PF/INV/EV are WFL PT-OP-Q Treatments Start: 02/21/18 15:30 Freq: Status: Active Protocol: Document 04/20/18 01:45 HH (Rec: 04/20/18 14:53 HH [email or web address]) Gym Equipment Cable Column (Body Solid) Leg Extension Details eccentric control Resistance 7 plates Reps/Time x 8-12 reps x 3 sets Shuttle Balance 1 Details Red Reps/Duration 5 mins Comments EO, EC, stagger stance Therapeutic Exercises Standing Exercises Iso squat hold x 20 secs Standing Exercise Name with UE support at side bar Comments Isometric hold at bottom x 20 secs Other Exercises standing toe touch Other Exercise Name standing toe touch Resistance 4 lbs ball Comments focus on eccentric control front squat with 5 lbs ball Other Exercise Name front squat Reps/Minutes 10 times with 10 secs break x 3 sets squat Other Exercise Name squat Reps/Minutes 10 times with 10 secs break x 3 sets PT-OP-R Modalities Start: 02/21/18 15:30 Freq: Status: Active Protocol: Document 04/18/18 15:17 EA (Rec: 04/18/18 15:31 EA [id number]) Hot Pack/Cold Pack Treatment Hot Pack Location paralumbars Treatment Duration (minutes) 15 Patient Tolerance Good PT-OP-T Assessment and Plan Start: 02/21/18 15:30 Freq: Status: Active Protocol: Document 04/20/18 01:45 HH (Rec: 04/20/18 14:53 HH [email or web address]) Physical Therapy Assessment Assessment Summary Assessment Pt demonstrates increased activity tolerance and B LE strength. Today's treatment primarily includes B LE strengthening while maintaining neutral spine stabilization. Pt sylvia exercises very well with no c/ o. Pt's BP is resolved but cont require skilled PT to improve overall lumbar segmental mobility, abdominal stabilization. Physical Therapy Plan Next Visit Focus/Plan Next Note Type Treatment Note Next Visit Plan Focus on LLE strengthening. Trunk extensors strength segmental mobility
--- NOTE | 2018-04-25 15:20 | PT.OTN ---
Current Diagnoses Unilateral primary osteoarthritis, left hip (04/25/18) Low back pain (04/25/18) Gluteal tendinitis, left hip (04/25/18) Physical Therapy Treatment Note PT-OP-A Visit Information Start: 02/21/18 15:30 Freq: Status: Active Protocol: Document 04/25/18 14:29 EA (Rec: 04/25/18 14:35 EA [id number]) Out-Patient Physical Therapy Visit Information Visit Information Visit Type Treatment Note Visit Start Time 13:45 Visit Stop Time 14:30 Total Visit Minutes 45 Visit Number 24 Number of HISTOLOGIC TECHNICIAN Visits 1 PT-OP-B Current Condition Start: 02/21/18 15:30 Freq: Status: Active Protocol: Document 02/21/18 15:33 EA (Rec: 02/21/18 16:00 EA [id number]) Current Condition History of Current Condition Onset Date 12/15/17 Current Complaints Low back pain History of Current Condition Present condition started to re-aggravated 2 months ago with no known reasons/injury. Patient reports chronic localized low back pain more than ten years. Had multiple surgery to left ankle/foot due to infection, TA rupture; had L ACL reconstruction in 2002. MRI reveals Left gluteals tendinosis and hip joint OA. 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 Treatment Goals Patient/Caregiver Goals 1. Improve LLE flexibility and strength 2. Eliminate low back pain Prior Functional Status Baseline Function- ADL's Independent Baseline Function- Mobility Independent Baseline Function- Other Able to to perform floor lift > 30 lbs with no difficulty Current Functional Impairments (Reported) Functional Limitations- ADL's Lifting difficulty, decreased sitting position tolerance Unable to sleep more than 4 hours due to low back pain Personal Factors Other Personal Factors That May Effect Living situation: Patient Therapy/Recovery lives in the boat with low ceiling that requires a lot of trunk bending. PT-OP-C Subjective Start: 02/21/18 15:30 Freq: Status: Active Protocol: Document 04/25/18 14:29 EA (Rec: 04/25/18 14:35 EA [id number]) OP-PT Subjective Patient Comments Patient Comments Pt reports unable to sleep well due to many things on his mind. Pt also reports that he is compliant with HEP. Patient Reported Progress Improving PT-OP-D Balance Start: 02/21/18 15:30 Freq: Status: Active Protocol: Document 02/21/18 17:36 EA (Rec: 02/21/18 17:36 EA [id number]) OP-PT Balance Assessment Sitting Balance Static Sitting Balance Ability Good Dynamic Sitting Balance Ability Good Standing Balance Static Standing Balance Ability Good Dynamic Standing Balance Ability Good Balance Tests Single Limb Standing Single Limb- Right <3 seconds Single Limb- Left <2 seconds Shepherd Fall Scale Copyright Permission Joao JM, Joao RM, Silviano SJ. Development of a scale to identify the fall- prone patient. Can J Aging 1989;8;366-7. Macie Shepherd (2009). Preventing patient falls. (2nd ed). [place]: Shahid. PT-OP-G Mobility & Gait Start: 02/21/18 15:30 Freq: Status: Active Protocol: Document 02/21/18 15:33 EA (Rec: 02/21/18 16:00 EA [id number]) OP Mobility Evaluation Bed Mobility Rolling Indep with difficulty Supine to and from Sit Idenp w/ difficulty OP Gait Assessment Gait Gait Assistance Required: Independent Able to Maintain Weight Bearing Status Yes During Gait Assistive Devices Assistive Device None Factors Limiting Gait Function Factors Limiting Gait Function Decreased Strength Comments Gait Comments Left foot dropped moderately. PT-OP-J Posture/Palpation/Skin Start: 02/21/18 15:30 Freq: Status: Active Protocol: Document 02/21/18 15:33 EA (Rec: 02/21/18 16:00 EA [id number]) Posture Evaluation Position Standing Evaluation View Post/lat Head/C-Spine Posture Forward Head L-Spine Posture Flattened Decreased Lordosis Shoulder Posture (L) Rounded (R) Rounded Scapula Posture (L) Protracted (R) Protracted Pelvis Posture Posterior Tilted Ankle/Foot Posture (L) Forefoot Adducted Toe Posture (L) Clawed Toes (L) Extended Toes Comments Posture Comments Fair posture Palpation Assessment Location Two Palpation Location Tightness to left QL, both multifidus Palpation Findings Soft Tissue Tightness One Palpation Location Grade 2 tenderness to right SI joint, left paraspinals, L QL Palpation Findings Tenderness Palpation Details Grade 2 tenderness to right SI joint, left paraspinals PT-OP-K Range of Motion Start: 02/21/18 15:30 Freq: Status: Active Protocol: Document 04/18/18 15:36 EA (Rec: 04/18/18 15:40 EA [id number]) Lumbar Spine Range of Motion Lumbar Spine Active Percentage Testing Position standing Flexion 100 Extension 70 Rotation Left 85 Rotation Right 85 Lateral Flexion Left 90 Lateral Flexion Right 90 ROM Limitations Soft Tissue Tightness PT-OP-L Special Tests Start: 02/21/18 15:30 Freq: Status: Active Protocol: Document 02/21/18 15:30 EA (Rec: 02/21/18 17:19 EA [id number]) Special Tests Lumbar Spine Special Tests Straight Leg Raise Test Results negative Other- 2 Test Results Sensitive: L sidebend & rotation Comments Posterior quadrant/facets joint Other- 1 Test Results sensitive to right Comments Compression S/L Compression Test Results Neg Comments ant/ supine Hip Special Tests DEEPAK Test Results Negative PT-OP-M Strength Start: 02/21/18 15:30 Freq: Status: Active Protocol: Document 04/18/18 15:36 EA (Rec: 04/18/18 15:40 EA [id number]) Trunk Strength Trunk Manual Muscle Testing Testing Position sup/prone/sitting Flexion 4- Good- Extension 4- Good- Rotation Left 4- Good- Rotation Right 4- Good- Lateral Flexion Left 4- Good- Lateral Flexion Right 4- Good- Hip Strength Hip Manual Muscle Testing Left Flexion (L2) 4 Good Extension (S1) 4 Good Abduction 4 Good External Rotation 4+ Good+ Internal Rotation 4- Good- Comments RLE are WFL Knee Strength Knee Manual Muscle Testing Left Flexion (S2) 4+ Good+ Extension (L3) 5 Normal Comments R knee F/E are WFL Ankle/Foot Strength Ankle and Foot Manual Muscle Testing Left Dorsiflexion (L4) 3 Fair Plantarflexion (S1) 4- Good- Inversion 3- Fair- Eversion (S1) 3- Fair- Comments R ankle DF/PF/INV/EV are WFL PT-OP-Q Treatments Start: 02/21/18 15:30 Freq: Status: Active Protocol: Document 04/25/18 14:29 EA (Rec: 04/25/18 14:35 EA [id number]) Gym Equipment Cable Column (Body Solid) Leg Extension Details eccentric control Resistance 7 -10 plates Reps/Time x 8-12 reps x 3 sets Shuttle Recovery Unilateral Squats Resistance 112, 125# Reps/Time 12 reps each Shuttle Balance 1 Details Red Reps/Duration 5 mins Comments EO, EC, stagger stance Therapeutic Exercises Supine Exercises 8 Supine Exercise Name Hamstring stretch Comments passive 6 Supine Exercise Name Hip ER stretch Comments Passive Sitting Exercises 1 Sitting Exercise Name Left ankle: DF, Evertors, Inv Side left Resistance Lv 1-2 Reps/Minutes x 10 reps x 2 Standing Exercises 5 Standing Exercise Name Practice control left heel strike Reps/Minutes x 15 reps Comments cues with upright trunk Gastroc Stretch Side bilateral Equipment Used stairs PT-OP-R Modalities Start: 02/21/18 15:30 Freq: Status: Active Protocol: Document 04/18/18 15:17 EA (Rec: 04/18/18 15:31 EA [id number]) Hot Pack/Cold Pack Treatment Hot Pack Location paralumbars Treatment Duration (minutes) 15 Patient Tolerance Good PT-OP-T Assessment and Plan Start: 02/21/18 15:30 Freq: Status: Active Protocol: Document 04/25/18 15:12 EA (Rec: 04/25/18 15:15 EA [id number]) Physical Therapy Assessment Assessment Summary Assessment Improved left foot DF control during heel strike but requires cues as patient tend to flexed the trunk. Overall, patient had improved LLE strength. Physical Therapy Plan Next Visit Focus/Plan Next Note Type Treatment Note Next Visit Plan Focus with gait DF control and core stab.
--- NOTE | 2018-04-27 14:29 | PT.OTN ---
Current Diagnoses Unilateral primary osteoarthritis, left hip (04/27/18) Low back pain (04/27/18) Gluteal tendinitis, left hip (04/27/18) Physical Therapy Treatment Note PT-OP-A Visit Information Start: 02/21/18 15:30 Freq: Status: Active Protocol: Document 04/27/18 14:17 SA (Rec: 04/27/18 14:29 SA [id number]) Out-Patient Physical Therapy Visit Information Visit Information Visit Type Treatment Note Visit Start Time 13:32 Visit Stop Time 14:17 Visit Number 25 Number of BUNDLE CUTTER Visits 1 PT-OP-B Current Condition Start: 02/21/18 15:30 Freq: Status: Active Protocol: Document 02/21/18 15:33 EA (Rec: 02/21/18 16:00 EA [id number]) Current Condition History of Current Condition Onset Date 12/15/17 Current Complaints Low back pain History of Current Condition Present condition started to re-aggravated 2 months ago with no known reasons/injury. Patient reports chronic localized low back pain more than ten years. Had multiple surgery to left ankle/foot due to infection, TA rupture; had L ACL reconstruction in 2002. MRI reveals Left gluteals tendinosis and hip joint OA. 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 Treatment Goals Patient/Caregiver Goals 1. Improve LLE flexibility and strength 2. Eliminate low back pain Prior Functional Status Baseline Function- ADL's Independent Baseline Function- Mobility Independent Baseline Function- Other Able to to perform floor lift > 30 lbs with no difficulty Current Functional Impairments (Reported) Functional Limitations- ADL's Lifting difficulty, decreased sitting position tolerance Unable to sleep more than 4 hours due to low back pain Personal Factors Other Personal Factors That May Effect Living situation: Patient Therapy/Recovery lives in the boat with low ceiling that requires a lot of trunk bending. PT-OP-C Subjective Start: 02/21/18 15:30 Freq: Status: Active Protocol: Document 04/27/18 14:17 SA (Rec: 04/27/18 14:29 SA [email or web address]) OP-PT Subjective Patient Comments Patient Comments Pt states he is doing ankle exercises at home and feels like his balance and stability is improving overall. PT-OP-D Balance Start: 02/21/18 15:30 Freq: Status: Active Protocol: Document 02/21/18 17:36 EA (Rec: 02/21/18 17:36 EA [id number]) OP-PT Balance Assessment Sitting Balance Static Sitting Balance Ability Good Dynamic Sitting Balance Ability Good Standing Balance Static Standing Balance Ability Good Dynamic Standing Balance Ability Good Balance Tests Single Limb Standing Single Limb- Right <3 seconds Single Limb- Left <2 seconds Joao Fall Scale Copyright Permission Joao JM, Joao RM, Silviano SJ. Development of a scale to identify the fall- prone patient. Can J Aging 1989;8;366-7. Macie Shepherd (2009). Preventing patient falls. (2nd ed). [place]: Shahid. PT-OP-G Mobility & Gait Start: 02/21/18 15:30 Freq: Status: Active Protocol: Document 02/21/18 15:33 EA (Rec: 02/21/18 16:00 EA [id number]) OP Mobility Evaluation Bed Mobility Rolling Indep with difficulty Supine to and from Sit Idenp w/ difficulty OP Gait Assessment Gait Gait Assistance Required: Independent Able to Maintain Weight Bearing Status Yes During Gait Assistive Devices Assistive Device None Factors Limiting Gait Function Factors Limiting Gait Function Decreased Strength Comments Gait Comments Left foot dropped moderately. PT-OP-J Posture/Palpation/Skin Start: 02/21/18 15:30 Freq: Status: Active Protocol: Document 02/21/18 15:33 EA (Rec: 02/21/18 16:00 EA [id number]) Posture Evaluation Position Standing Evaluation View Post/lat Head/C-Spine Posture Forward Head L-Spine Posture Flattened Decreased Lordosis Shoulder Posture (L) Rounded (R) Rounded Scapula Posture (L) Protracted (R) Protracted Pelvis Posture Posterior Tilted Ankle/Foot Posture (L) Forefoot Adducted Toe Posture (L) Clawed Toes (L) Extended Toes Comments Posture Comments Fair posture Palpation Assessment Location Two Palpation Location Tightness to left QL, both multifidus Palpation Findings Soft Tissue Tightness One Palpation Location Grade 2 tenderness to right SI joint, left paraspinals, L QL Palpation Findings Tenderness Palpation Details Grade 2 tenderness to right SI joint, left paraspinals PT-OP-K Range of Motion Start: 02/21/18 15:30 Freq: Status: Active Protocol: Document 04/18/18 15:36 EA (Rec: 04/18/18 15:40 EA [id number]) Lumbar Spine Range of Motion Lumbar Spine Active Percentage Testing Position standing Flexion 100 Extension 70 Rotation Left 85 Rotation Right 85 Lateral Flexion Left 90 Lateral Flexion Right 90 ROM Limitations Soft Tissue Tightness PT-OP-L Special Tests Start: 02/21/18 15:30 Freq: Status: Active Protocol: Document 02/21/18 15:30 EA (Rec: 02/21/18 17:19 EA [id number]) Special Tests Lumbar Spine Special Tests Straight Leg Raise Test Results negative Other- 2 Test Results Sensitive: L sidebend & rotation Comments Posterior quadrant/facets joint Other- 1 Test Results sensitive to right Comments Compression S/L Compression Test Results Neg Comments ant/ supine Hip Special Tests DEEPAK Test Results Negative PT-OP-M Strength Start: 02/21/18 15:30 Freq: Status: Active Protocol: Document 04/18/18 15:36 EA (Rec: 04/18/18 15:40 EA [id number]) Trunk Strength Trunk Manual Muscle Testing Testing Position sup/prone/sitting Flexion 4- Good- Extension 4- Good- Rotation Left 4- Good- Rotation Right 4- Good- Lateral Flexion Left 4- Good- Lateral Flexion Right 4- Good- Hip Strength Hip Manual Muscle Testing Left Flexion (L2) 4 Good Extension (S1) 4 Good Abduction 4 Good External Rotation 4+ Good+ Internal Rotation 4- Good- Comments RLE are WFL Knee Strength Knee Manual Muscle Testing Left Flexion (S2) 4+ Good+ Extension (L3) 5 Normal Comments R knee F/E are WFL Ankle/Foot Strength Ankle and Foot Manual Muscle Testing Left Dorsiflexion (L4) 3 Fair Plantarflexion (S1) 4- Good- Inversion 3- Fair- Eversion (S1) 3- Fair- Comments R ankle DF/PF/INV/EV are WFL PT-OP-Q Treatments Start: 02/21/18 15:30 Freq: Status: Active Protocol: Document 04/27/18 14:17 SA (Rec: 04/27/18 14:29 SA [email or web address]) Cardio Equipment Recumbent Stepper (Sci-Fit) Duration (Minutes) 6 Resistance 5 Seat Position 14 Gym Equipment Cable Column (Body Solid) Leg Extension Details eccentric control Resistance 7 -10 plates Reps/Time x 8-12 reps x 3 sets Shuttle Balance 1 Details Red Reps/Duration 6 min Comments EO, EC, stagger stance, UE movements, head turns Therapeutic Exercises Supine Exercises 6 Supine Exercise Name Hip ER stretch Comments Passive Sitting Exercises 1 Sitting Exercise Name Left ankle: DF, Evertors, Inv Side left Resistance Lv 1-2 Reps/Minutes x 10 reps x 2 Standing Exercises SLS balance Side bilateral Equipment Used bars Reps/Minutes able to perfrom 3-6 holds on LLE Comments focus on LLE Scapular retraction with squat Resistance # 3 Reps/Minutes 3 x 10 Comments cues for form/eccentric control HS stretch Equipment Used at stairs Reps/Minutes 30 x 2 each side Other Exercises standing toe touch Other Exercise Name standing toe touch Resistance 4 lbs ball Comments focus on eccentric control front squat with 5 lbs ball Other Exercise Name front squat Reps/Minutes 12 x 3 PT-OP-R Modalities Start: 02/21/18 15:30 Freq: Status: Active Protocol: Document 04/18/18 15:17 EA (Rec: 04/18/18 15:31 EA [id number]) Hot Pack/Cold Pack Treatment Hot Pack Location paralumbars Treatment Duration (minutes) 15 Patient Tolerance Good PT-OP-T Assessment and Plan Start: 02/21/18 15:30 Freq: Status: Active Protocol: Document 04/27/18 14:17 SA (Rec: 04/27/18 14:29 SA [email or web address]) Physical Therapy Assessment Assessment Summary Assessment Treatment focused on LE and core strengthening with LLE DF . Pt compliant with HEP, given LLE SLS to add to HEP. Physical Therapy Plan Next Visit Focus/Plan Next Note Type Treatment Note Next Visit Plan Continue to progress core and LE strengthening program as well as L DF. Assess tolerance to new exercises.
--- NOTE | 2018-05-03 17:35 | PT.OTN ---
Current Diagnoses Unilateral primary osteoarthritis, left hip (05/03/18) Low back pain (05/03/18) Gluteal tendinitis, left hip (05/03/18) Physical Therapy Treatment Note PT-OP-A Visit Information Start: 02/21/18 15:30 Freq: Status: Active Protocol: Document 05/03/18 17:35 RCC (Rec: 05/04/18 08:51 RCC [email or web address]) Out-Patient Physical Therapy Visit Information Visit Information Visit Type Treatment Note Visit Start Time 16:54 Visit Stop Time 17:35 Visit Number 26 Number of SALES MANAGEMENT TRAINEE Visits 0 PT-OP-B Current Condition Start: 02/21/18 15:30 Freq: Status: Active Protocol: Document 02/21/18 15:33 EA (Rec: 02/21/18 16:00 EA [id number]) Current Condition History of Current Condition Onset Date 12/15/17 Current Complaints Low back pain History of Current Condition Present condition started to re-aggravated 2 months ago with no known reasons/injury. Patient reports chronic localized low back pain more than ten years. Had multiple surgery to left ankle/foot due to infection, TA rupture; had L ACL reconstruction in 2002. MRI reveals Left gluteals tendinosis and hip joint OA. 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 Treatment Goals Patient/Caregiver Goals 1. Improve LLE flexibility and strength 2. Eliminate low back pain Prior Functional Status Baseline Function- ADL's Independent Baseline Function- Mobility Independent Baseline Function- Other Able to to perform floor lift > 30 lbs with no difficulty Current Functional Impairments (Reported) Functional Limitations- ADL's Lifting difficulty, decreased sitting position tolerance Unable to sleep more than 4 hours due to low back pain Personal Factors Other Personal Factors That May Effect Living situation: Patient Therapy/Recovery lives in the boat with low ceiling that requires a lot of trunk bending. PT-OP-C Subjective Start: 02/21/18 15:30 Freq: Status: Active Protocol: Document 05/03/18 17:35 RCC (Rec: 05/04/18 08:51 RCC [email or web address]) OP-PT Subjective Patient Comments Patient Comments Pt states he had trouble sleeping on his boat due to the wind. He was able to bike twice earlier this week for up to 1 hr, but did have hip flexor tension. PT-OP-D Balance Start: 02/21/18 15:30 Freq: Status: Active Protocol: Document 02/21/18 17:36 EA (Rec: 02/21/18 17:36 EA [id number]) OP-PT Balance Assessment Sitting Balance Static Sitting Balance Ability Good Dynamic Sitting Balance Ability Good Standing Balance Static Standing Balance Ability Good Dynamic Standing Balance Ability Good Balance Tests Single Limb Standing Single Limb- Right <3 seconds Single Limb- Left <2 seconds Joao Fall Scale Copyright Permission Joao JM, Joao RM, Silviano SJ. Development of a scale to identify the fall- prone patient. Can J Aging 1989;8;366-7. Macie Shepherd (2009). Preventing patient falls. (2nd ed). [place]: Shahid. PT-OP-G Mobility & Gait Start: 02/21/18 15:30 Freq: Status: Active Protocol: Document 02/21/18 15:33 EA (Rec: 02/21/18 16:00 EA [id number]) OP Mobility Evaluation Bed Mobility Rolling Indep with difficulty Supine to and from Sit Idenp w/ difficulty OP Gait Assessment Gait Gait Assistance Required: Independent Able to Maintain Weight Bearing Status Yes During Gait Assistive Devices Assistive Device None Factors Limiting Gait Function Factors Limiting Gait Function Decreased Strength Comments Gait Comments Left foot dropped moderately. PT-OP-J Posture/Palpation/Skin Start: 02/21/18 15:30 Freq: Status: Active Protocol: Document 02/21/18 15:33 EA (Rec: 02/21/18 16:00 EA [id number]) Posture Evaluation Position Standing Evaluation View Post/lat Head/C-Spine Posture Forward Head L-Spine Posture Flattened Decreased Lordosis Shoulder Posture (L) Rounded (R) Rounded Scapula Posture (L) Protracted (R) Protracted Pelvis Posture Posterior Tilted Ankle/Foot Posture (L) Forefoot Adducted Toe Posture (L) Clawed Toes (L) Extended Toes Comments Posture Comments Fair posture Palpation Assessment Location Two Palpation Location Tightness to left QL, both multifidus Palpation Findings Soft Tissue Tightness One Palpation Location Grade 2 tenderness to right SI joint, left paraspinals, L QL Palpation Findings Tenderness Palpation Details Grade 2 tenderness to right SI joint, left paraspinals PT-OP-K Range of Motion Start: 02/21/18 15:30 Freq: Status: Active Protocol: Document 04/18/18 15:36 EA (Rec: 04/18/18 15:40 EA [id number]) Lumbar Spine Range of Motion Lumbar Spine Active Percentage Testing Position standing Flexion 100 Extension 70 Rotation Left 85 Rotation Right 85 Lateral Flexion Left 90 Lateral Flexion Right 90 ROM Limitations Soft Tissue Tightness PT-OP-L Special Tests Start: 02/21/18 15:30 Freq: Status: Active Protocol: Document 02/21/18 15:30 EA (Rec: 02/21/18 17:19 EA [id number]) Special Tests Lumbar Spine Special Tests Straight Leg Raise Test Results negative Other- 2 Test Results Sensitive: L sidebend & rotation Comments Posterior quadrant/facets joint Other- 1 Test Results sensitive to right Comments Compression S/L Compression Test Results Neg Comments ant/ supine Hip Special Tests DEEPAK Test Results Negative PT-OP-M Strength Start: 02/21/18 15:30 Freq: Status: Active Protocol: Document 04/18/18 15:36 EA (Rec: 04/18/18 15:40 EA [id number]) Trunk Strength Trunk Manual Muscle Testing Testing Position sup/prone/sitting Flexion 4- Good- Extension 4- Good- Rotation Left 4- Good- Rotation Right 4- Good- Lateral Flexion Left 4- Good- Lateral Flexion Right 4- Good- Hip Strength Hip Manual Muscle Testing Left Flexion (L2) 4 Good Extension (S1) 4 Good Abduction 4 Good External Rotation 4+ Good+ Internal Rotation 4- Good- Comments RLE are WFL Knee Strength Knee Manual Muscle Testing Left Flexion (S2) 4+ Good+ Extension (L3) 5 Normal Comments R knee F/E are WFL Ankle/Foot Strength Ankle and Foot Manual Muscle Testing Left Dorsiflexion (L4) 3 Fair Plantarflexion (S1) 4- Good- Inversion 3- Fair- Eversion (S1) 3- Fair- Comments R ankle DF/PF/INV/EV are WFL PT-OP-Q Treatments Start: 02/21/18 15:30 Freq: Status: Active Protocol: Document 05/03/18 17:35 RCC (Rec: 05/04/18 08:51 RCC [email or web address]) Cardio Equipment Recumbent Stepper (Sci-Fit) Duration (Minutes) 6 Resistance 5 Seat Position 14 Gym Equipment Cable Column (Body Solid) Leg Extension Details eccentric control Resistance 7 -10 plates Reps/Time x 8-12 reps x 3 sets Shuttle Recovery Unilateral Squats Resistance 112, 125# Reps/Time 12 reps each Shuttle Balance 1 Details Red Reps/Duration 10 min Comments EO, EC, stagger stance, UE movements, head turns Therapeutic Exercises Supine Exercises DL lift (reverse curl ups) Side bilateral Reps/Minutes 3x10 bridging Side bilateral Comments Green T-bal LTR Supine Exercise Name lower trunk rotation Side bilateral Reps/Minutes x 15SH x 2 reps Comments stretch Standing Exercises heel-toe walking Side bilateral Reps/Minutes 4 laps in // bars TKE Side bilateral Resistance L3 Reps/Minutes 1x30 each Comments emphasis on quad control SLS balance Side bilateral Equipment Used bars Reps/Minutes able to perfrom 4-5 holds on LLE Comments focus on LLE PT-OP-R Modalities Start: 02/21/18 15:30 Freq: Status: Active Protocol: Document 04/18/18 15:17 EA (Rec: 04/18/18 15:31 EA [id number]) Hot Pack/Cold Pack Treatment Hot Pack Location paralumbars Treatment Duration (minutes) 15 Patient Tolerance Good PT-OP-T Assessment and Plan Start: 02/21/18 15:30 Freq: Status: Active Protocol: Document 05/03/18 17:35 RCC (Rec: 05/04/18 08:51 RCC [email or web address]) Physical Therapy Assessment Assessment Summary Assessment Pt fatigued after exercises today. Pt with difficulty with SLS on the LLE, requiring finger touch the majority of the time to stand longer than 5 sec on the LLE. Pt improving with core stabilization, he required tactile cuing for TKE due to impaired quadriceps coordination on the L. Physical Therapy Plan Frequency and Duration Frequency of Treatment 2x/Week Duration of Treatment 6 wks Plan of Care Start Date 02/16/18 Plan of Care End Date 05/30/18 Next Visit Focus/Plan Next Note Type Treatment Note Next Visit Plan progress activity tolerance, DF and LLE control and balance .
--- NOTE | 2018-05-08 12:21 | PT.OTN ---
Current Diagnoses Unilateral primary osteoarthritis, left hip (05/08/18) Low back pain (05/08/18) Gluteal tendinitis, left hip (05/08/18) Physical Therapy Treatment Note PT-OP-A Visit Information Start: 02/21/18 15:30 Freq: Status: Active Protocol: Document 05/08/18 09:39 EA (Rec: 05/08/18 09:48 EA [id number]) Out-Patient Physical Therapy Visit Information Visit Information Visit Type Treatment Note Visit Start Time 08:15 Visit Stop Time 09:00 Visit Number 27 PT-OP-B Current Condition Start: 02/21/18 15:30 Freq: Status: Active Protocol: Document 02/21/18 15:33 EA (Rec: 02/21/18 16:00 EA [id number]) Current Condition History of Current Condition Onset Date 12/15/17 Current Complaints Low back pain History of Current Condition Present condition started to re-aggravated 2 months ago with no known reasons/injury. Patient reports chronic localized low back pain more than ten years. Had multiple surgery to left ankle/foot due to infection, TA rupture; had L ACL reconstruction in 2002. MRI reveals Left gluteals tendinosis and hip joint OA. 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 Treatment Goals Patient/Caregiver Goals 1. Improve LLE flexibility and strength 2. Eliminate low back pain Prior Functional Status Baseline Function- ADL's Independent Baseline Function- Mobility Independent Baseline Function- Other Able to to perform floor lift > 30 lbs with no difficulty Current Functional Impairments (Reported) Functional Limitations- ADL's Lifting difficulty, decreased sitting position tolerance Unable to sleep more than 4 hours due to low back pain Personal Factors Other Personal Factors That May Effect Living situation: Patient Therapy/Recovery lives in the boat with low ceiling that requires a lot of trunk bending. PT-OP-C Subjective Start: 02/21/18 15:30 Freq: Status: Active Protocol: Document 05/08/18 09:39 EA (Rec: 05/08/18 09:48 EA [id number]) OP-PT Subjective Patient Comments Patient Comments Pt reports had to work on his boat engine and low back is about 1/10 pain scale; states he feels requires more stretch today and continue with LLE strengthening. Patient Reported Progress Improving PT-OP-D Balance Start: 02/21/18 15:30 Freq: Status: Active Protocol: Document 02/21/18 17:36 EA (Rec: 02/21/18 17:36 EA [id number]) OP-PT Balance Assessment Sitting Balance Static Sitting Balance Ability Good Dynamic Sitting Balance Ability Good Standing Balance Static Standing Balance Ability Good Dynamic Standing Balance Ability Good Balance Tests Single Limb Standing Single Limb- Right <3 seconds Single Limb- Left <2 seconds Joao Fall Scale Copyright Permission Joao JM, Joao RM, Silviano SJ. Development of a scale to identify the fall- prone patient. Can J Aging 1989;8;366-7. Macie Shepherd (2009). Preventing patient falls. (2nd ed). [place]: Shahid. PT-OP-G Mobility & Gait Start: 02/21/18 15:30 Freq: Status: Active Protocol: Document 02/21/18 15:33 EA (Rec: 02/21/18 16:00 EA [id number]) OP Mobility Evaluation Bed Mobility Rolling Indep with difficulty Supine to and from Sit Idenp w/ difficulty OP Gait Assessment Gait Gait Assistance Required: Independent Able to Maintain Weight Bearing Status Yes During Gait Assistive Devices Assistive Device None Factors Limiting Gait Function Factors Limiting Gait Function Decreased Strength Comments Gait Comments Left foot dropped moderately. PT-OP-J Posture/Palpation/Skin Start: 02/21/18 15:30 Freq: Status: Active Protocol: Document 02/21/18 15:33 EA (Rec: 02/21/18 16:00 EA [id number]) Posture Evaluation Position Standing Evaluation View Post/lat Head/C-Spine Posture Forward Head L-Spine Posture Flattened Decreased Lordosis Shoulder Posture (L) Rounded (R) Rounded Scapula Posture (L) Protracted (R) Protracted Pelvis Posture Posterior Tilted Ankle/Foot Posture (L) Forefoot Adducted Toe Posture (L) Clawed Toes (L) Extended Toes Comments Posture Comments Fair posture Palpation Assessment Location Two Palpation Location Tightness to left QL, both multifidus Palpation Findings Soft Tissue Tightness One Palpation Location Grade 2 tenderness to right SI joint, left paraspinals, L QL Palpation Findings Tenderness Palpation Details Grade 2 tenderness to right SI joint, left paraspinals PT-OP-K Range of Motion Start: 02/21/18 15:30 Freq: Status: Active Protocol: Document 04/18/18 15:36 EA (Rec: 04/18/18 15:40 EA [id number]) Lumbar Spine Range of Motion Lumbar Spine Active Percentage Testing Position standing Flexion 100 Extension 70 Rotation Left 85 Rotation Right 85 Lateral Flexion Left 90 Lateral Flexion Right 90 ROM Limitations Soft Tissue Tightness PT-OP-L Special Tests Start: 02/21/18 15:30 Freq: Status: Active Protocol: Document 02/21/18 15:30 EA (Rec: 02/21/18 17:19 EA [id number]) Special Tests Lumbar Spine Special Tests Straight Leg Raise Test Results negative Other- 2 Test Results Sensitive: L sidebend & rotation Comments Posterior quadrant/facets joint Other- 1 Test Results sensitive to right Comments Compression S/L Compression Test Results Neg Comments ant/ supine Hip Special Tests DEEPAK Test Results Negative PT-OP-M Strength Start: 02/21/18 15:30 Freq: Status: Active Protocol: Document 04/18/18 15:36 EA (Rec: 04/18/18 15:40 EA [id number]) Trunk Strength Trunk Manual Muscle Testing Testing Position sup/prone/sitting Flexion 4- Good- Extension 4- Good- Rotation Left 4- Good- Rotation Right 4- Good- Lateral Flexion Left 4- Good- Lateral Flexion Right 4- Good- Hip Strength Hip Manual Muscle Testing Left Flexion (L2) 4 Good Extension (S1) 4 Good Abduction 4 Good External Rotation 4+ Good+ Internal Rotation 4- Good- Comments RLE are WFL Knee Strength Knee Manual Muscle Testing Left Flexion (S2) 4+ Good+ Extension (L3) 5 Normal Comments R knee F/E are WFL Ankle/Foot Strength Ankle and Foot Manual Muscle Testing Left Dorsiflexion (L4) 3 Fair Plantarflexion (S1) 4- Good- Inversion 3- Fair- Eversion (S1) 3- Fair- Comments R ankle DF/PF/INV/EV are WFL PT-OP-Q Treatments Start: 02/21/18 15:30 Freq: Status: Active Protocol: Document 05/08/18 09:39 EA (Rec: 05/08/18 09:48 EA [id number]) Cardio Equipment Recumbent Stepper (Sci-Fit) Duration (Minutes) 6 Resistance 5 Seat Position 14 Gym Equipment Cable Column (Body Solid) Leg Extension Details eccentric control Resistance 7 -10 plates Reps/Time x 8-12 reps x 3 sets Shuttle Recovery Unilateral Squats Resistance 112, 125# Reps/Time 12 reps each Shuttle Balance 1 Details Red Reps/Duration 10 min Comments Squats, semi partial lunge: core stab control Therapeutic Exercises Supine Exercises 8 Supine Exercise Name Hamstring stretch Comments passive/active 6 Supine Exercise Name Hip ER stretch Comments Passive LTR Supine Exercise Name lower trunk rotation Side bilateral Reps/Minutes x 15SH x 2 reps Comments stretch Prone Exercises 1 Prone Exercise Name Quads stretch Reps/Minutes x 30SH x 2 Standing Exercises TKE Side bilateral Resistance L3 Reps/Minutes 1x30 each Comments emphasis on quad control SLS balance Side bilateral Equipment Used bars Reps/Minutes able to perfrom 4-5 holds on LLE Comments focus on LLE HS stretch Equipment Used at stairs Reps/Minutes 30 x 2 each side 4 Standing Exercise Name Single rail forward lunges Reps/Minutes x 2 lines 3 Standing Exercise Name Half kneeling core stab: arms FWD Reps/Minutes x 10 reps x 2 sets 2 Standing Exercise Name SLS Resistance x 3 secs x 5 reps to left side Gastroc Stretch Side bilateral Equipment Used stairs Comments straight and bent knees PT-OP-R Modalities Start: 02/21/18 15:30 Freq: Status: Active Protocol: Document 04/18/18 15:17 EA (Rec: 04/18/18 15:31 EA [id number]) Hot Pack/Cold Pack Treatment Hot Pack Location paralumbars Treatment Duration (minutes) 15 Patient Tolerance Good PT-OP-T Assessment and Plan Start: 02/21/18 15:30 Freq: Status: Active Protocol: Document 05/08/18 09:39 EA (Rec: 05/08/18 09:48 EA [id number]) Physical Therapy Assessment Assessment Summary Assessment Pt tolerated treatment but requires rest due to fatigue. cont with standing core stab exercises. Physical Therapy Plan Next Visit Focus/Plan Next Note Type Treatment Note Next Visit Plan progress activity tolerance, DF and LLE control and balance .
--- NOTE | 2018-05-10 15:58 | PT.OTN ---
Current Diagnoses Unilateral primary osteoarthritis, left hip (05/10/18) Low back pain (05/10/18) Gluteal tendinitis, left hip (05/10/18) Physical Therapy Treatment Note PT-OP-A Visit Information Start: 02/21/18 15:30 Freq: Status: Active Protocol: Document 05/10/18 11:13 EA (Rec: 05/10/18 11:15 EA [id number]) Out-Patient Physical Therapy Visit Information Visit Information Visit Type Treatment Note Visit Start Time 10:30 Visit Stop Time 11:13 Visit Number 28 PT-OP-B Current Condition Start: 02/21/18 15:30 Freq: Status: Active Protocol: Document 02/21/18 15:33 EA (Rec: 02/21/18 16:00 EA [id number]) Current Condition History of Current Condition Onset Date 12/15/17 Current Complaints Low back pain History of Current Condition Present condition started to re-aggravated 2 months ago with no known reasons/injury. Patient reports chronic localized low back pain more than ten years. Had multiple surgery to left ankle/foot due to infection, TA rupture; had L ACL reconstruction in 2002. MRI reveals Left gluteals tendinosis and hip joint OA. 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 Treatment Goals Patient/Caregiver Goals 1. Improve LLE flexibility and strength 2. Eliminate low back pain Prior Functional Status Baseline Function- ADL's Independent Baseline Function- Mobility Independent Baseline Function- Other Able to to perform floor lift > 30 lbs with no difficulty Current Functional Impairments (Reported) Functional Limitations- ADL's Lifting difficulty, decreased sitting position tolerance Unable to sleep more than 4 hours due to low back pain Personal Factors Other Personal Factors That May Effect Living situation: Patient Therapy/Recovery lives in the boat with low ceiling that requires a lot of trunk bending. PT-OP-C Subjective Start: 02/21/18 15:30 Freq: Status: Active Protocol: Document 05/10/18 11:13 EA (Rec: 05/10/18 11:15 EA [id number]) OP-PT Subjective Patient Comments Patient Comments I feel that I'm here for left leg strengthening and flexibility. PT-OP-D Balance Start: 02/21/18 15:30 Freq: Status: Active Protocol: Document 02/21/18 17:36 EA (Rec: 02/21/18 17:36 EA [id number]) OP-PT Balance Assessment Sitting Balance Static Sitting Balance Ability Good Dynamic Sitting Balance Ability Good Standing Balance Static Standing Balance Ability Good Dynamic Standing Balance Ability Good Balance Tests Single Limb Standing Single Limb- Right <3 seconds Single Limb- Left <2 seconds Joao Fall Scale Copyright Permission Joao JM, Joao RM, Silviano SJ. Development of a scale to identify the fall- prone patient. Can J Aging 1989;8;366-7. Macie Shepherd (2009). Preventing patient falls. (2nd ed). [place]: Shahid. PT-OP-G Mobility & Gait Start: 02/21/18 15:30 Freq: Status: Active Protocol: Document 02/21/18 15:33 EA (Rec: 02/21/18 16:00 EA [id number]) OP Mobility Evaluation Bed Mobility Rolling Indep with difficulty Supine to and from Sit Idenp w/ difficulty OP Gait Assessment Gait Gait Assistance Required: Independent Able to Maintain Weight Bearing Status Yes During Gait Assistive Devices Assistive Device None Factors Limiting Gait Function Factors Limiting Gait Function Decreased Strength Comments Gait Comments Left foot dropped moderately. PT-OP-J Posture/Palpation/Skin Start: 02/21/18 15:30 Freq: Status: Active Protocol: Document 02/21/18 15:33 EA (Rec: 02/21/18 16:00 EA [id number]) Posture Evaluation Position Standing Evaluation View Post/lat Head/C-Spine Posture Forward Head L-Spine Posture Flattened Decreased Lordosis Shoulder Posture (L) Rounded (R) Rounded Scapula Posture (L) Protracted (R) Protracted Pelvis Posture Posterior Tilted Ankle/Foot Posture (L) Forefoot Adducted Toe Posture (L) Clawed Toes (L) Extended Toes Comments Posture Comments Fair posture Palpation Assessment Location Two Palpation Location Tightness to left QL, both multifidus Palpation Findings Soft Tissue Tightness One Palpation Location Grade 2 tenderness to right SI joint, left paraspinals, L QL Palpation Findings Tenderness Palpation Details Grade 2 tenderness to right SI joint, left paraspinals PT-OP-K Range of Motion Start: 02/21/18 15:30 Freq: Status: Active Protocol: Document 04/18/18 15:36 EA (Rec: 04/18/18 15:40 EA [id number]) Lumbar Spine Range of Motion Lumbar Spine Active Percentage Testing Position standing Flexion 100 Extension 70 Rotation Left 85 Rotation Right 85 Lateral Flexion Left 90 Lateral Flexion Right 90 ROM Limitations Soft Tissue Tightness PT-OP-L Special Tests Start: 02/21/18 15:30 Freq: Status: Active Protocol: Document 02/21/18 15:30 EA (Rec: 02/21/18 17:19 EA [id number]) Special Tests Lumbar Spine Special Tests Straight Leg Raise Test Results negative Other- 2 Test Results Sensitive: L sidebend & rotation Comments Posterior quadrant/facets joint Other- 1 Test Results sensitive to right Comments Compression S/L Compression Test Results Neg Comments ant/ supine Hip Special Tests DEEPAK Test Results Negative PT-OP-M Strength Start: 02/21/18 15:30 Freq: Status: Active Protocol: Document 04/18/18 15:36 EA (Rec: 04/18/18 15:40 EA [id number]) Trunk Strength Trunk Manual Muscle Testing Testing Position sup/prone/sitting Flexion 4- Good- Extension 4- Good- Rotation Left 4- Good- Rotation Right 4- Good- Lateral Flexion Left 4- Good- Lateral Flexion Right 4- Good- Hip Strength Hip Manual Muscle Testing Left Flexion (L2) 4 Good Extension (S1) 4 Good Abduction 4 Good External Rotation 4+ Good+ Internal Rotation 4- Good- Comments RLE are WFL Knee Strength Knee Manual Muscle Testing Left Flexion (S2) 4+ Good+ Extension (L3) 5 Normal Comments R knee F/E are WFL Ankle/Foot Strength Ankle and Foot Manual Muscle Testing Left Dorsiflexion (L4) 3 Fair Plantarflexion (S1) 4- Good- Inversion 3- Fair- Eversion (S1) 3- Fair- Comments R ankle DF/PF/INV/EV are WFL PT-OP-Q Treatments Start: 02/21/18 15:30 Freq: Status: Active Protocol: Document 05/10/18 11:15 EA (Rec: 05/10/18 12:15 EA [id number]) Cardio Equipment Recumbent Stepper (Sci-Fit) Duration (Minutes) 6 Resistance 5 Seat Position 14 Gym Equipment Cable Column (Body Solid) Other- 2 Details Cable sit to stand row Resistance 30lbs Reps/Time x 12 reps Leg Extension Details eccentric control Resistance 7 -10 plates Reps/Time x 8-12 reps x 3 sets Shuttle Recovery Unilateral Squats Resistance 112, 125# Reps/Time 12 reps each Therapeutic Exercises Supine Exercises 8 Supine Exercise Name Hamstring stretch Comments passive/active 6 Supine Exercise Name Hip ER stretch Comments Passive Prone Exercises 1 Prone Exercise Name Quads stretch Reps/Minutes x 30SH x 2 Comments Passive/active Sidelying Exercises 1 Sidelying Exercise Name ITB stretch Comments Passive Standing Exercises TKE Side bilateral Resistance L3 Reps/Minutes 1x30 each Comments emphasis on quad control 4 Standing Exercise Name Single rail forward lunges Reps/Minutes x 2 lines 3 Standing Exercise Name Half kneeling core stab: arms FWD Reps/Minutes x 10 reps x 2 sets 2 Standing Exercise Name SLS Resistance x 3 secs x 5 reps to left side Comments Green foam. Gastroc Stretch Side bilateral Equipment Used stairs Comments straight and bent knees Other Exercises front squat with 5 lbs ball Other Exercise Name Wbble board squat Reps/Minutes x 10 reps squat Other Exercise Name side step squat trunk ismetric rotation Reps/Minutes x 8 steps each side x 2 reps Cat/Camel Other Exercise Name Cat/Camel in Quadruped PT-OP-R Modalities Start: 02/21/18 15:30 Freq: Status: Active Protocol: Document 04/18/18 15:17 EA (Rec: 04/18/18 15:31 EA [id number]) Hot Pack/Cold Pack Treatment Hot Pack Location paralumbars Treatment Duration (minutes) 15 Patient Tolerance Good PT-OP-T Assessment and Plan Start: 02/21/18 15:30 Freq: Status: Active Protocol: Document 05/10/18 11:15 EA (Rec: 05/10/18 12:15 EA [id number]) Physical Therapy Assessment Assessment Summary Assessment Improves energy noted at this time with good form during functional exercises. Patient is progressing with functional exercises.
--- NOTE | 2018-05-15 10:44 | PT.OTN ---
Current Diagnoses Unilateral primary osteoarthritis, left hip (05/15/18) Low back pain (05/15/18) Gluteal tendinitis, left hip (05/15/18) Physical Therapy Treatment Note PT-OP-A Visit Information Start: 02/21/18 15:30 Freq: Status: Active Protocol: Document 05/15/18 10:37 EA (Rec: 05/15/18 10:44 EA [id number]) Out-Patient Physical Therapy Visit Information Visit Information Visit Type Treatment Note Visit Start Time 10:30 Visit Stop Time 11:13 Visit Number 29 PT-OP-B Current Condition Start: 02/21/18 15:30 Freq: Status: Active Protocol: Document 02/21/18 15:33 EA (Rec: 02/21/18 16:00 EA [id number]) Current Condition History of Current Condition Onset Date 12/15/17 Current Complaints Low back pain History of Current Condition Present condition started to re-aggravated 2 months ago with no known reasons/injury. Patient reports chronic localized low back pain more than ten years. Had multiple surgery to left ankle/foot due to infection, TA rupture; had L ACL reconstruction in 2002. MRI reveals Left gluteals tendinosis and hip joint OA. 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 Treatment Goals Patient/Caregiver Goals 1. Improve LLE flexibility and strength 2. Eliminate low back pain Prior Functional Status Baseline Function- ADL's Independent Baseline Function- Mobility Independent Baseline Function- Other Able to to perform floor lift > 30 lbs with no difficulty Current Functional Impairments (Reported) Functional Limitations- ADL's Lifting difficulty, decreased sitting position tolerance Unable to sleep more than 4 hours due to low back pain Personal Factors Other Personal Factors That May Effect Living situation: Patient Therapy/Recovery lives in the boat with low ceiling that requires a lot of trunk bending. PT-OP-C Subjective Start: 02/21/18 15:30 Freq: Status: Active Protocol: Document 05/15/18 10:37 EA (Rec: 05/15/18 10:44 EA [id number]) OP-PT Subjective Patient Comments Patient Comments I like functional exercises I performed last session. Patient Reported Progress Improving PT-OP-D Balance Start: 02/21/18 15:30 Freq: Status: Active Protocol: Document 02/21/18 17:36 EA (Rec: 02/21/18 17:36 EA [id number]) OP-PT Balance Assessment Sitting Balance Static Sitting Balance Ability Good Dynamic Sitting Balance Ability Good Standing Balance Static Standing Balance Ability Good Dynamic Standing Balance Ability Good Balance Tests Single Limb Standing Single Limb- Right <3 seconds Single Limb- Left <2 seconds Joao Fall Scale Copyright Permission Joao MILLS, Joao RM, Silviano SJ. Development of a scale to identify the fall- prone patient. Can J Aging 1989;8;366-7. Macie Shepherd (2009). Preventing patient falls. (2nd ed). [place]: Shahid. PT-OP-G Mobility & Gait Start: 02/21/18 15:30 Freq: Status: Active Protocol: Document 02/21/18 15:33 EA (Rec: 02/21/18 16:00 EA [id number]) OP Mobility Evaluation Bed Mobility Rolling Indep with difficulty Supine to and from Sit Idenp w/ difficulty OP Gait Assessment Gait Gait Assistance Required: Independent Able to Maintain Weight Bearing Status Yes During Gait Assistive Devices Assistive Device None Factors Limiting Gait Function Factors Limiting Gait Function Decreased Strength Comments Gait Comments Left foot dropped moderately. PT-OP-J Posture/Palpation/Skin Start: 02/21/18 15:30 Freq: Status: Active Protocol: Document 02/21/18 15:33 EA (Rec: 02/21/18 16:00 EA [id number]) Posture Evaluation Position Standing Evaluation View Post/lat Head/C-Spine Posture Forward Head L-Spine Posture Flattened Decreased Lordosis Shoulder Posture (L) Rounded (R) Rounded Scapula Posture (L) Protracted (R) Protracted Pelvis Posture Posterior Tilted Ankle/Foot Posture (L) Forefoot Adducted Toe Posture (L) Clawed Toes (L) Extended Toes Comments Posture Comments Fair posture Palpation Assessment Location Two Palpation Location Tightness to left QL, both multifidus Palpation Findings Soft Tissue Tightness One Palpation Location Grade 2 tenderness to right SI joint, left paraspinals, L QL Palpation Findings Tenderness Palpation Details Grade 2 tenderness to right SI joint, left paraspinals PT-OP-K Range of Motion Start: 02/21/18 15:30 Freq: Status: Active Protocol: Document 04/18/18 15:36 EA (Rec: 04/18/18 15:40 EA [id number]) Lumbar Spine Range of Motion Lumbar Spine Active Percentage Testing Position standing Flexion 100 Extension 70 Rotation Left 85 Rotation Right 85 Lateral Flexion Left 90 Lateral Flexion Right 90 ROM Limitations Soft Tissue Tightness PT-OP-L Special Tests Start: 02/21/18 15:30 Freq: Status: Active Protocol: Document 02/21/18 15:30 EA (Rec: 02/21/18 17:19 EA [id number]) Special Tests Lumbar Spine Special Tests Straight Leg Raise Test Results negative Other- 2 Test Results Sensitive: L sidebend & rotation Comments Posterior quadrant/facets joint Other- 1 Test Results sensitive to right Comments Compression S/L Compression Test Results Neg Comments ant/ supine Hip Special Tests DEEPAK Test Results Negative PT-OP-M Strength Start: 02/21/18 15:30 Freq: Status: Active Protocol: Document 04/18/18 15:36 EA (Rec: 04/18/18 15:40 EA [id number]) Trunk Strength Trunk Manual Muscle Testing Testing Position sup/prone/sitting Flexion 4- Good- Extension 4- Good- Rotation Left 4- Good- Rotation Right 4- Good- Lateral Flexion Left 4- Good- Lateral Flexion Right 4- Good- Hip Strength Hip Manual Muscle Testing Left Flexion (L2) 4 Good Extension (S1) 4 Good Abduction 4 Good External Rotation 4+ Good+ Internal Rotation 4- Good- Comments RLE are WFL Knee Strength Knee Manual Muscle Testing Left Flexion (S2) 4+ Good+ Extension (L3) 5 Normal Comments R knee F/E are WFL Ankle/Foot Strength Ankle and Foot Manual Muscle Testing Left Dorsiflexion (L4) 3 Fair Plantarflexion (S1) 4- Good- Inversion 3- Fair- Eversion (S1) 3- Fair- Comments R ankle DF/PF/INV/EV are WFL PT-OP-Q Treatments Start: 02/21/18 15:30 Freq: Status: Active Protocol: Document 05/15/18 10:37 EA (Rec: 05/15/18 10:44 EA [id number]) Cardio Equipment Recumbent Stepper (Sci-Fit) Duration (Minutes) 5 Resistance 5 Seat Position 14 Gym Equipment Cable Column (Body Solid) Other- 2 Details Cable sit to stand row Resistance 30lbs Reps/Time x 12 reps Leg Extension Details eccentric control Resistance 9-12 plates Reps/Time x 8-12 reps x 3 sets Shuttle Recovery Unilateral Squats Resistance 112, 125# Reps/Time 12 reps each Shuttle Balance 1 Details Red Reps/Duration 10 min Comments Squats, semi partial lunge: core stab control Therapeutic Exercises Supine Exercises 8 Supine Exercise Name Hamstring stretch Comments passive/active 6 Supine Exercise Name Hip ER stretch Comments Passive Prone Exercises 1 Prone Exercise Name Quads stretch Reps/Minutes x 30SH x 2 Comments Passive/active Sidelying Exercises 1 Sidelying Exercise Name ITB stretch Comments Passive Standing Exercises SLS balance Side bilateral Equipment Used bars Reps/Minutes able to perfrom 4-5 holds on LLE Comments focus on LLE 4 Standing Exercise Name Single rail forward lunges Reps/Minutes x 4 lines Gastroc Stretch Side bilateral Equipment Used stairs Comments straight and bent knees 1 Standing Exercise Name Wall squat with PPT Reps/Minutes x 5 reps x 5SH Other Exercises squat Other Exercise Name side step squat trunk ismetric rotation Reps/Minutes x 8 steps each side x 2 reps Cat/Camel Other Exercise Name Cat/Camel in Quadruped PT-OP-R Modalities Start: 02/21/18 15:30 Freq: Status: Active Protocol: Document 04/18/18 15:17 EA (Rec: 04/18/18 15:31 EA [id number]) Hot Pack/Cold Pack Treatment Hot Pack Location paralumbars Treatment Duration (minutes) 15 Patient Tolerance Good PT-OP-T Assessment and Plan Start: 02/21/18 15:30 Freq: Status: Active Protocol: Document 05/15/18 10:37 EA (Rec: 05/15/18 10:44 EA [id number]) Physical Therapy Assessment Assessment Summary Assessment Continued to show decreased ability to left SLS; functional exercises show improvement to form and tolerance. Patient is progressing well. Physical Therapy Plan Next Visit Focus/Plan Next Note Type Treatment Note Next Visit Plan progress activity tolerance, DF and LLE control and balance .
--- NOTE | 2018-05-22 12:14 | PT.OTN ---
Current Diagnoses Unilateral primary osteoarthritis, left hip (05/22/18) Low back pain (05/22/18) Gluteal tendinitis, left hip (05/22/18) Physical Therapy Treatment Note PT-OP-A Visit Information Start: 02/21/18 15:30 Freq: Status: Active Protocol: Document 05/22/18 12:06 EA (Rec: 05/22/18 12:13 EA [id number]) Out-Patient Physical Therapy Visit Information Visit Information Visit Type Treatment Note Visit Start Time 10:30 Visit Stop Time 11:13 Visit Number 30 PT-OP-B Current Condition Start: 02/21/18 15:30 Freq: Status: Active Protocol: Document 02/21/18 15:33 EA (Rec: 02/21/18 16:00 EA [id number]) Current Condition History of Current Condition Onset Date 12/15/17 Current Complaints Low back pain History of Current Condition Present condition started to re-aggravated 2 months ago with no known reasons/injury. Patient reports chronic localized low back pain more than ten years. Had multiple surgery to left ankle/foot due to infection, TA rupture; had L ACL reconstruction in 2002. MRI reveals Left gluteals tendinosis and hip joint OA. 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 Treatment Goals Patient/Caregiver Goals 1. Improve LLE flexibility and strength 2. Eliminate low back pain Prior Functional Status Baseline Function- ADL's Independent Baseline Function- Mobility Independent Baseline Function- Other Able to to perform floor lift > 30 lbs with no difficulty Current Functional Impairments (Reported) Functional Limitations- ADL's Lifting difficulty, decreased sitting position tolerance Unable to sleep more than 4 hours due to low back pain Personal Factors Other Personal Factors That May Effect Living situation: Patient Therapy/Recovery lives in the boat with low ceiling that requires a lot of trunk bending. PT-OP-C Subjective Start: 02/21/18 15:30 Freq: Status: Active Protocol: Document 05/22/18 12:06 EA (Rec: 05/22/18 12:13 EA [id number]) OP-PT Subjective Patient Comments Patient Comments Pt reports went to his surgeon about his thumb pain; state surgeon can't do much about it . Pt reports low back pain complaint is much better and is still looking fwd to improve his LE strength. Patient Reported Progress Improving PT-OP-D Balance Start: 02/21/18 15:30 Freq: Status: Active Protocol: Document 02/21/18 17:36 EA (Rec: 02/21/18 17:36 EA [id number]) OP-PT Balance Assessment Sitting Balance Static Sitting Balance Ability Good Dynamic Sitting Balance Ability Good Standing Balance Static Standing Balance Ability Good Dynamic Standing Balance Ability Good Balance Tests Single Limb Standing Single Limb- Right <3 seconds Single Limb- Left <2 seconds Joao Fall Scale Copyright Permission Joao JM, Joao RM, Silviano SJ. Development of a scale to identify the fall- prone patient. Can J Aging 1989;8;366-7. Macie Shepherd (2009). Preventing patient falls. (2nd ed). [place]: Shahid. PT-OP-G Mobility & Gait Start: 02/21/18 15:30 Freq: Status: Active Protocol: Document 02/21/18 15:33 EA (Rec: 02/21/18 16:00 EA [id number]) OP Mobility Evaluation Bed Mobility Rolling Indep with difficulty Supine to and from Sit Idenp w/ difficulty OP Gait Assessment Gait Gait Assistance Required: Independent Able to Maintain Weight Bearing Status Yes During Gait Assistive Devices Assistive Device None Factors Limiting Gait Function Factors Limiting Gait Function Decreased Strength Comments Gait Comments Left foot dropped moderately. PT-OP-J Posture/Palpation/Skin Start: 02/21/18 15:30 Freq: Status: Active Protocol: Document 02/21/18 15:33 EA (Rec: 02/21/18 16:00 EA [id number]) Posture Evaluation Position Standing Evaluation View Post/lat Head/C-Spine Posture Forward Head L-Spine Posture Flattened Decreased Lordosis Shoulder Posture (L) Rounded (R) Rounded Scapula Posture (L) Protracted (R) Protracted Pelvis Posture Posterior Tilted Ankle/Foot Posture (L) Forefoot Adducted Toe Posture (L) Clawed Toes (L) Extended Toes Comments Posture Comments Fair posture Palpation Assessment Location Two Palpation Location Tightness to left QL, both multifidus Palpation Findings Soft Tissue Tightness One Palpation Location Grade 2 tenderness to right SI joint, left paraspinals, L QL Palpation Findings Tenderness Palpation Details Grade 2 tenderness to right SI joint, left paraspinals PT-OP-K Range of Motion Start: 02/21/18 15:30 Freq: Status: Active Protocol: Document 04/18/18 15:36 EA (Rec: 04/18/18 15:40 EA [id number]) Lumbar Spine Range of Motion Lumbar Spine Active Percentage Testing Position standing Flexion 100 Extension 70 Rotation Left 85 Rotation Right 85 Lateral Flexion Left 90 Lateral Flexion Right 90 ROM Limitations Soft Tissue Tightness PT-OP-L Special Tests Start: 02/21/18 15:30 Freq: Status: Active Protocol: Document 02/21/18 15:30 EA (Rec: 02/21/18 17:19 EA [id number]) Special Tests Lumbar Spine Special Tests Straight Leg Raise Test Results negative Other- 2 Test Results Sensitive: L sidebend & rotation Comments Posterior quadrant/facets joint Other- 1 Test Results sensitive to right Comments Compression S/L Compression Test Results Neg Comments ant/ supine Hip Special Tests DEEPAK Test Results Negative PT-OP-M Strength Start: 02/21/18 15:30 Freq: Status: Active Protocol: Document 04/18/18 15:36 EA (Rec: 04/18/18 15:40 EA [id number]) Trunk Strength Trunk Manual Muscle Testing Testing Position sup/prone/sitting Flexion 4- Good- Extension 4- Good- Rotation Left 4- Good- Rotation Right 4- Good- Lateral Flexion Left 4- Good- Lateral Flexion Right 4- Good- Hip Strength Hip Manual Muscle Testing Left Flexion (L2) 4 Good Extension (S1) 4 Good Abduction 4 Good External Rotation 4+ Good+ Internal Rotation 4- Good- Comments RLE are WFL Knee Strength Knee Manual Muscle Testing Left Flexion (S2) 4+ Good+ Extension (L3) 5 Normal Comments R knee F/E are WFL Ankle/Foot Strength Ankle and Foot Manual Muscle Testing Left Dorsiflexion (L4) 3 Fair Plantarflexion (S1) 4- Good- Inversion 3- Fair- Eversion (S1) 3- Fair- Comments R ankle DF/PF/INV/EV are WFL PT-OP-Q Treatments Start: 02/21/18 15:30 Freq: Status: Active Protocol: Document 05/22/18 12:06 EA (Rec: 05/22/18 12:13 EA [id number]) Cardio Equipment Recumbent Stepper (Sci-Fit) Duration (Minutes) 5 Resistance 5 Seat Position 14 Gym Equipment Cable Column (Body Solid) Other- 2 Details Cable sit to stand row Resistance 30lbs Reps/Time x 12 reps Leg Extension Details eccentric control Resistance 9-12 plates Reps/Time x 8-12 reps x 3 sets Shuttle Recovery Unilateral Squats Resistance 112, 125# Reps/Time 12 reps each Therapeutic Exercises Supine Exercises 8 Supine Exercise Name Hamstring stretch Comments passive/active 6 Supine Exercise Name Hip ER stretch Comments Passive Prone Exercises 1 Prone Exercise Name Quads stretch Reps/Minutes x 30SH x 2 Comments Passive/active Standing Exercises SLS balance Side bilateral Equipment Used rails Reps/Minutes able to perfrom 4-5 holds on LLE Comments focus on LLE 3 Standing Exercise Name Half kneeling core stab: arms FWD Reps/Minutes x 10 reps x 2 sets Gastroc Stretch Side bilateral Equipment Used stairs Comments straight and bent knees 1 Standing Exercise Name Wall squat with PPT Reps/Minutes x 5 reps x 5SH Other Exercises 2 Other Exercise Name Cable: partial lunge partial trun rotation Resistance 10 lbs Reps/Minutes x 10 reps each side x 10 reps 1 Other Exercise Name FWD lunges within the // bars Reps/Minutes x 6 lines Comments cues to uppright posture squat Other Exercise Name side step squat trunk ismetric rotation Reps/Minutes x 8 steps each side x 2 reps PT-OP-R Modalities Start: 02/21/18 15:30 Freq: Status: Active Protocol: Document 04/18/18 15:17 EA (Rec: 04/18/18 15:31 EA [id number]) Hot Pack/Cold Pack Treatment Hot Pack Location paralumbars Treatment Duration (minutes) 15 Patient Tolerance Good PT-OP-T Assessment and Plan Start: 02/21/18 15:30 Freq: Status: Active Protocol: Document 05/22/18 12:06 EA (Rec: 05/22/18 12:13 EA [id number]) Physical Therapy Assessment Assessment Summary Assessment Tolerated treatment well. Noted no complaint of discomfort to low back and improve trunk stability during lunges. Patient is progressing well. I discussed possible discharge soon and he is okay with it. Physical Therapy Plan Next Visit Focus/Plan Next Note Type Treatment Note Next Visit Plan HEP review
--- NOTE | 2018-05-24 13:45 | PT.OTN ---
Current Diagnoses Unilateral primary osteoarthritis, left hip (05/24/18) Low back pain (05/24/18) Gluteal tendinitis, left hip (05/24/18) Physical Therapy Treatment Note PT-OP-A Visit Information Start: 02/21/18 15:30 Freq: Status: Active Protocol: Document 05/24/18 13:45 RCC (Rec: 05/24/18 14:46 RCC [id number]) Out-Patient Physical Therapy Visit Information Visit Information Visit Type Treatment Note Visit Start Time 13:45 Visit Stop Time 14:27 Total Visit Minutes 42 Visit Number 31 PT-OP-B Current Condition Start: 02/21/18 15:30 Freq: Status: Active Protocol: Document 02/21/18 15:33 EA (Rec: 02/21/18 16:00 EA [id number]) Current Condition History of Current Condition Onset Date 12/15/17 Current Complaints Low back pain History of Current Condition Present condition started to re-aggravated 2 months ago with no known reasons/injury. Patient reports chronic localized low back pain more than ten years. Had multiple surgery to left ankle/foot due to infection, TA rupture; had L ACL reconstruction in 2002. MRI reveals Left gluteals tendinosis and hip joint OA. 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 Treatment Goals Patient/Caregiver Goals 1. Improve LLE flexibility and strength 2. Eliminate low back pain Prior Functional Status Baseline Function- ADL's Independent Baseline Function- Mobility Independent Baseline Function- Other Able to to perform floor lift > 30 lbs with no difficulty Current Functional Impairments (Reported) Functional Limitations- ADL's Lifting difficulty, decreased sitting position tolerance Unable to sleep more than 4 hours due to low back pain Personal Factors Other Personal Factors That May Effect Living situation: Patient Therapy/Recovery lives in the boat with low ceiling that requires a lot of trunk bending. PT-OP-C Subjective Start: 02/21/18 15:30 Freq: Status: Active Protocol: Document 05/24/18 13:45 RCC (Rec: 05/24/18 14:46 RCC [id number]) OP-PT Subjective Patient Comments Patient Comments Pt was able to do some kneeling earlier today to get water out of his dingy with less imbalances. Patient Reported Progress Improving PT-OP-D Balance Start: 02/21/18 15:30 Freq: Status: Active Protocol: Document 02/21/18 17:36 EA (Rec: 02/21/18 17:36 EA [id number]) OP-PT Balance Assessment Sitting Balance Static Sitting Balance Ability Good Dynamic Sitting Balance Ability Good Standing Balance Static Standing Balance Ability Good Dynamic Standing Balance Ability Good Balance Tests Single Limb Standing Single Limb- Right <3 seconds Single Limb- Left <2 seconds Joao Fall Scale Copyright Permission Joao JM, Jooa RM, Silviano SJ. Development of a scale to identify the fall- prone patient. Can J Aging 1989;8;366-7. Macie Shepherd (2009). Preventing patient falls. (2nd ed). [place]: Shahid. PT-OP-G Mobility & Gait Start: 02/21/18 15:30 Freq: Status: Active Protocol: Document 02/21/18 15:33 EA (Rec: 02/21/18 16:00 EA [id number]) OP Mobility Evaluation Bed Mobility Rolling Indep with difficulty Supine to and from Sit Idenp w/ difficulty OP Gait Assessment Gait Gait Assistance Required: Independent Able to Maintain Weight Bearing Status Yes During Gait Assistive Devices Assistive Device None Factors Limiting Gait Function Factors Limiting Gait Function Decreased Strength Comments Gait Comments Left foot dropped moderately. PT-OP-J Posture/Palpation/Skin Start: 02/21/18 15:30 Freq: Status: Active Protocol: Document 02/21/18 15:33 EA (Rec: 02/21/18 16:00 EA [id number]) Posture Evaluation Position Standing Evaluation View Post/lat Head/C-Spine Posture Forward Head L-Spine Posture Flattened Decreased Lordosis Shoulder Posture (L) Rounded (R) Rounded Scapula Posture (L) Protracted (R) Protracted Pelvis Posture Posterior Tilted Ankle/Foot Posture (L) Forefoot Adducted Toe Posture (L) Clawed Toes (L) Extended Toes Comments Posture Comments Fair posture Palpation Assessment Location Two Palpation Location Tightness to left QL, both multifidus Palpation Findings Soft Tissue Tightness One Palpation Location Grade 2 tenderness to right SI joint, left paraspinals, L QL Palpation Findings Tenderness Palpation Details Grade 2 tenderness to right SI joint, left paraspinals PT-OP-K Range of Motion Start: 02/21/18 15:30 Freq: Status: Active Protocol: Document 04/18/18 15:36 EA (Rec: 04/18/18 15:40 EA [id number]) Lumbar Spine Range of Motion Lumbar Spine Active Percentage Testing Position standing Flexion 100 Extension 70 Rotation Left 85 Rotation Right 85 Lateral Flexion Left 90 Lateral Flexion Right 90 ROM Limitations Soft Tissue Tightness PT-OP-L Special Tests Start: 02/21/18 15:30 Freq: Status: Active Protocol: Document 02/21/18 15:30 EA (Rec: 02/21/18 17:19 EA [id number]) Special Tests Lumbar Spine Special Tests Straight Leg Raise Test Results negative Other- 2 Test Results Sensitive: L sidebend & rotation Comments Posterior quadrant/facets joint Other- 1 Test Results sensitive to right Comments Compression S/L Compression Test Results Neg Comments ant/ supine Hip Special Tests DEEPAK Test Results Negative PT-OP-M Strength Start: 02/21/18 15:30 Freq: Status: Active Protocol: Document 04/18/18 15:36 EA (Rec: 04/18/18 15:40 EA [id number]) Trunk Strength Trunk Manual Muscle Testing Testing Position sup/prone/sitting Flexion 4- Good- Extension 4- Good- Rotation Left 4- Good- Rotation Right 4- Good- Lateral Flexion Left 4- Good- Lateral Flexion Right 4- Good- Hip Strength Hip Manual Muscle Testing Left Flexion (L2) 4 Good Extension (S1) 4 Good Abduction 4 Good External Rotation 4+ Good+ Internal Rotation 4- Good- Comments RLE are WFL Knee Strength Knee Manual Muscle Testing Left Flexion (S2) 4+ Good+ Extension (L3) 5 Normal Comments R knee F/E are WFL Ankle/Foot Strength Ankle and Foot Manual Muscle Testing Left Dorsiflexion (L4) 3 Fair Plantarflexion (S1) 4- Good- Inversion 3- Fair- Eversion (S1) 3- Fair- Comments R ankle DF/PF/INV/EV are WFL PT-OP-Q Treatments Start: 02/21/18 15:30 Freq: Status: Active Protocol: Document 05/24/18 13:45 RCC (Rec: 05/24/18 14:46 RCC [email or web address]) Gym Equipment Cable Column (Body Solid) Other- 2 Details Cable sit to stand row Resistance 30, 40 lbs Reps/Time 1x 12 reps each resistance Leg Extension Details eccentric control Resistance 9-12 plates Reps/Time x 8-12 reps x 3 sets Therapeutic Exercises Supine Exercises 8 Supine Exercise Name Hamstring stretch Comments passive/active 6 Supine Exercise Name Hip ER stretch Comments Passive Prone Exercises 1 Prone Exercise Name Quads stretch Reps/Minutes x 30SH x 2 Comments Passive/active Standing Exercises Dynamic warm up Standing Exercise Name tin soldiers, SKC with step forward and backward Side bilateral Equipment Used // bars Reps/Minutes 1 lap each heel-toe walking Side bilateral Reps/Minutes 4 laps in // bars SLS balance Side bilateral Equipment Used rails Reps/Minutes able to perfrom 4-8 holds on LLE Comments focus on LLE HS stretch Equipment Used at stairs Reps/Minutes 30 x 2 each side 4 Standing Exercise Name Single rail forward lunges Reps/Minutes x 2 laps in // bars Gastroc Stretch Side bilateral Equipment Used stairs Comments straight and bent knees PT-OP-T Assessment and Plan Start: 02/21/18 15:30 Freq: Status: Active Protocol: Document 05/24/18 13:45 RCC (Rec: 05/24/18 14:46 RCC [email or web address]) Physical Therapy Assessment Assessment Summary Assessment No c/o pain with session, pt able to tolerate increased resistance with row+squat activity. Pt with tendency to increase weight distribution to the LE with deeper squat (@ 60 degrees) requiring VC for correction. Physical Therapy Plan Frequency and Duration Frequency of Treatment 2x/Week Duration of Treatment 6 wks Plan of Care Start Date 02/16/18 Plan of Care End Date 05/30/18 Next Visit Focus/Plan Next Note Type Treatment Note Next Visit Plan cont to review and advance HEP
--- NOTE | 2018-06-13 14:30 | PT.OTRE ---
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) Sleep apnea (Chronic 2004) Toe ulcer (Chronic) Chickenpox (Resolved 1957) H/O methicillin resistant Staphylococcus aureus infection (Resolved 2003) Open toe wound (Resolved Unknown) Vertigo (Resolved Unknown) Surgical History (Last Reviewed 02/04/18 @ 03:47 by Rajinder Miranda DO) H/O Achilles tendon repair (Resolved 2003) Hx of surgical procedure (Resolved ~05/2017) Hx of tonsillectomy (Resolved ~1951) S/P ACL repair (Resolved 2005) Provider Visit Care Team Role Provider Type Natasha Carrasco PA-C Attending Provider Advanced Table Attendant Family Provider Primary Care Provider Specialty: Medical Address: [address] [place] [address] Email: [email or web address] Physical Therapy Re-Evaluation PT-OP-A Visit Information Start: 02/21/18 15:30 Freq: Status: Active Protocol: Document 06/13/18 13:43 EA (Rec: 06/13/18 13:45 EA [id number]) Out-Patient Physical Therapy Visit Information Visit Information Visit Type Treatment Note Visit Note Discharge to this date Visit Start Time 13:00 Visit Stop Time 13:23 Total Visit Minutes 23 Visit Number 32 PT-OP-B Current Condition Start: 02/21/18 15:30 Freq: Status: Active Protocol: Document 02/21/18 15:33 EA (Rec: 02/21/18 16:00 EA [id number]) Current Condition History of Current Condition Onset Date 12/15/17 Current Complaints Low back pain History of Current Condition Present condition started to re-aggravated 2 months ago with no known reasons/injury. Patient reports chronic localized low back pain more than ten years. Had multiple surgery to left ankle/foot due to infection, TA rupture; had L ACL reconstruction in 2002. MRI reveals Left gluteals tendinosis and hip joint OA. 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 Treatment Goals Patient/Caregiver Goals 1. Improve LLE flexibility and strength 2. Eliminate low back pain Prior Functional Status Baseline Function- ADL's Independent Baseline Function- Mobility Independent Baseline Function- Other Able to to perform floor lift > 30 lbs with no difficulty Current Functional Impairments (Reported) Functional Limitations- ADL's Lifting difficulty, decreased sitting position tolerance Unable to sleep more than 4 hours due to low back pain Personal Factors Other Personal Factors That May Effect Living situation: Patient Therapy/Recovery lives in the boat with low ceiling that requires a lot of trunk bending. PT-OP-C Subjective Start: 02/21/18 15:30 Freq: Status: Active Protocol: Document 06/13/18 13:43 EA (Rec: 06/13/18 13:45 EA [id number]) OP-PT Subjective Patient Comments Patient Comments Pt reports that his low back and right hip groin problem is resolved and would like to know how to prevent with exercises and other pre- cautions. Patient Reported Progress Improving Patient Questionnaires Oswestry Low Back Index Oswestry Score 12 Oswestry Impairment 1 to 19% Impaired (Score 1-19) PT-OP-D Balance Start: 02/21/18 15:30 Freq: Status: Active Protocol: Document 06/13/18 14:30 EA (Rec: 06/21/18 13:09 EA [id number]) Balance Tests Single Limb Standing Single Limb- Right >3 seconds Single Limb- Left >2 seconds PT-OP-G Mobility & Gait Start: 02/21/18 15:30 Freq: Status: Active Protocol: Document 06/13/18 14:30 EA (Rec: 06/21/18 13:09 EA [id number]) OP Mobility Evaluation Bed Mobility Rolling Indep without difficulty Supine to and from Sit Idenp w/out difficulty OP Gait Assessment Gait Gait Assistance Required: Independent Able to Maintain Weight Bearing Status Yes During Gait Comments Gait Comments Min left foot dropped. PT-OP-J Posture/Palpation/Skin Start: 02/21/18 15:30 Freq: Status: Active Protocol: Document 06/13/18 14:30 EA (Rec: 06/21/18 13:09 EA [id number]) Posture Evaluation Comments Posture Comments Fair posture PT-OP-K Range of Motion Start: 02/21/18 15:30 Freq: Status: Active Protocol: Document 06/13/18 14:30 EA (Rec: 06/21/18 13:09 EA [id number]) Lumbar Spine Range of Motion Lumbar Spine Active Percentage Testing Position standing Flexion 100 Extension 90 Rotation Left 90 Rotation Right 90 Lateral Flexion Left 90 Lateral Flexion Right 90 ROM Limitations Soft Tissue Tightness PT-OP-L Special Tests Start: 02/21/18 15:30 Freq: Status: Active Protocol: Document 02/21/18 15:30 EA (Rec: 02/21/18 17:19 EA [id number]) Special Tests Lumbar Spine Special Tests Straight Leg Raise Test Results negative Other- 2 Test Results Sensitive: L sidebend & rotation Comments Posterior quadrant/facets joint Other- 1 Test Results sensitive to right Comments Compression S/L Compression Test Results Neg Comments ant/ supine Hip Special Tests DEEPAK Test Results Negative PT-OP-M Strength Start: 02/21/18 15:30 Freq: Status: Active Protocol: Document 04/18/18 15:36 EA (Rec: 04/18/18 15:40 EA [id number]) Trunk Strength Trunk Manual Muscle Testing Testing Position sup/prone/sitting Flexion 4- Good- Extension 4- Good- Rotation Left 4- Good- Rotation Right 4- Good- Lateral Flexion Left 4- Good- Lateral Flexion Right 4- Good- Hip Strength Hip Manual Muscle Testing Left Flexion (L2) 4 Good Extension (S1) 4 Good Abduction 4 Good External Rotation 4+ Good+ Internal Rotation 4- Good- Comments RLE are WFL Knee Strength Knee Manual Muscle Testing Left Flexion (S2) 4+ Good+ Extension (L3) 5 Normal Comments R knee F/E are WFL Ankle/Foot Strength Ankle and Foot Manual Muscle Testing Left Dorsiflexion (L4) 3 Fair Plantarflexion (S1) 4- Good- Inversion 3- Fair- Eversion (S1) 3- Fair- Comments R ankle DF/PF/INV/EV are WFL PT-OP-Q Treatments Start: 02/21/18 15:30 Freq: Status: Active Protocol: Document 06/13/18 13:43 EA (Rec: 06/13/18 13:45 EA [id number]) Self-Care/Home Management Treatment Education Patient Education Body Mechanics Home Exercise Program Joint Protection Pain Management Posture PT-OP-R Modalities Start: 02/21/18 15:30 Freq: Status: Active Protocol: Document 04/18/18 15:17 EA (Rec: 04/18/18 15:31 EA [id number]) Hot Pack/Cold Pack Treatment Hot Pack Location paralumbars Treatment Duration (minutes) 15 Patient Tolerance Good PT-OP-T Assessment and Plan Start: 02/21/18 15:30 Freq: Status: Active Protocol: Document 06/13/18 13:43 EA (Rec: 06/13/18 13:45 EA [id number]) Physical Therapy Assessment Rehab Potential Rehabilitation Potential Good Impairments Impairments Posture Strength Goals Five Impairment Impaired ankle strength Geothermal Operating Engineer Goal (LTG) Patient will increase Ankle strength to decrease gait abnormality LTG Duration 4 wks improving Four Impairment Impaired lifting ability Geothermal Operating Engineer Goal (LTG) Patient will increase lifting ability to more than 30 lbs with proper body mechanics with no increase in back symptoms LTG Duration Goal reached Three Impairment Impaired Lumbosacral ROM Intermediate Goal (LTG) Patient will improve lumbosacral ROM to normal range LTG Duration Goal reached Two Impairment Impaired Trunk strength Geothermal Operating Engineer Goal (LTG) Patient will increase trunk strength to 4-/5 to decrease muscular imbalance and improve functional mobility LTG Duration 4 wks One Impairment Oswestry Impairment score of 23/50 Geothermal Operating Engineer Goal (LTG) Patient will have Oswestry impairment scale score of 10/ 50 LTG Duration 4 wks (improving 12/50) Progress Towards Goals Progress Towards Goals Progressing Toward Goals Assessment Summary Assessment Patient was treated and evaluated today. Pt demonstrates no discomfort and limitation to function for activities of daily living. Significant improvement of function is mostly due to a decreased in overall pain to lumbar region with addition of improved lumbar ROM and increased body mechanics awareness. Patient has requested to discharge at this time and agreeable to continue home exercises program. Physical Therapy Plan Frequency and Duration Frequency of Treatment 1x/Week Duration of Treatment 1 wk Plan of Care Start Date 06/13/18 Plan of Care End Date 06/16/18 Therapeutic Interventions Therapeutic Interventions Home Exercise Program Patient/Caregiver Education Self-Care/Home Management Discharge Physical Therapy Discharge Reasons Patient Request Discharge Comments Patient request
--- NOTE | 2018-06-13 14:30 | PT.OPPOC ---
Current Diagnoses Unilateral primary osteoarthritis, left hip (06/13/18) Low back pain (06/13/18) Gluteal tendinitis, left hip (06/13/18) Provider Visit Care Team Role Provider Type Natasha Carrasco PA-C Attending Provider Advanced Vamp Liner Family Provider Primary Care Provider Specialty: Medical Address: [address] [place] [address], [id number] Email: [email or web address] Plan Of Care PT-OP-T Assessment and Plan Start: 02/21/18 15:30 Freq: Status: Active Protocol: Document 06/13/18 13:43 EA (Rec: 06/13/18 13:45 EA [id number]) Physical Therapy Assessment Rehab Potential Rehabilitation Potential Good Impairments Impairments Posture Strength Goals Five Impairment Impaired ankle strength Jail Goal (LTG) Patient will increase Ankle strength to decrease gait abnormality LTG Duration 4 wks improving Four Impairment Impaired lifting ability Financial Health Counselor Goal (LTG) Patient will increase lifting ability to more than 30 lbs with proper body mechanics with no increase in back symptoms LTG Duration Goal reached Three Impairment Impaired Lumbosacral ROM Financial Health Counselor Goal (LTG) Patient will improve lumbosacral ROM to normal range LTG Duration Goal reached Two Impairment Impaired Trunk strength Jail Goal (LTG) Patient will increase trunk strength to 4-/5 to decrease muscular imbalance and improve functional mobility LTG Duration 4 wks One Impairment Oswestry Impairment score of 23/50 Financial Health Counselor Goal (LTG) Patient will have Oswestry impairment scale score of 10/ 50 LTG Duration 4 wks (improving 12/50) Progress Towards Goals Progress Towards Goals Progressing Toward Goals Assessment Summary Assessment Patient was treated and evaluated today. Pt demonstrates no discomfort and limitation to function for activities of daily living. Significant improvement of function is mostly due to a decreased in overall pain to lumbar region with addition of improved lumbar ROM and increased body mechanics awareness. Patient has requested to discharge at this time and agreeable to continue home exercises program. Physical Therapy Plan Frequency and Duration Frequency of Treatment 1x/Week Duration of Treatment 1 wk Plan of Care Start Date 06/13/18 Plan of Care End Date 06/16/18 Therapeutic Interventions Therapeutic Interventions Home Exercise Program Patient/Caregiver Education Self-Care/Home Management Discharge Physical Therapy Discharge Reasons Patient Request Discharge Comments Patient request Plan of Care Dates Plan of Care Start Date 06/13/18 Plan of Care End Date 06/16/18 Please Sign and Return: I have reviewed this Plan of Care and certify that the skilled therapy services above are required to meet the patient?s needs. Physician Signature Date Printed Name and Credentials Clinical Instructor Signature Printed Name and Credentials
--- NOTE | 2018-06-13 14:45 | PT.OTN ---
Current Diagnoses Unilateral primary osteoarthritis, left hip (06/13/18) Low back pain (06/13/18) Gluteal tendinitis, left hip (06/13/18) Physical Therapy Treatment Note PT-OP-A Visit Information Start: 02/21/18 15:30 Freq: Status: Active Protocol: Document 06/13/18 13:43 EA (Rec: 06/13/18 13:45 EA [id number]) Out-Patient Physical Therapy Visit Information Visit Information Visit Type Treatment Note Visit Note Discharge to this date Visit Start Time 13:00 Visit Stop Time 13:23 Total Visit Minutes 23 Visit Number 32 PT-OP-B Current Condition Start: 02/21/18 15:30 Freq: Status: Active Protocol: Document 02/21/18 15:33 EA (Rec: 02/21/18 16:00 EA [id number]) Current Condition History of Current Condition Onset Date 12/15/17 Current Complaints Low back pain History of Current Condition Present condition started to re-aggravated 2 months ago with no known reasons/injury. Patient reports chronic localized low back pain more than ten years. Had multiple surgery to left ankle/foot due to infection, TA rupture; had L ACL reconstruction in 2002. MRI reveals Left gluteals tendinosis and hip joint OA. 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 Treatment Goals Patient/Caregiver Goals 1. Improve LLE flexibility and strength 2. Eliminate low back pain Prior Functional Status Baseline Function- ADL's Independent Baseline Function- Mobility Independent Baseline Function- Other Able to to perform floor lift > 30 lbs with no difficulty Current Functional Impairments (Reported) Functional Limitations- ADL's Lifting difficulty, decreased sitting position tolerance Unable to sleep more than 4 hours due to low back pain Personal Factors Other Personal Factors That May Effect Living situation: Patient Therapy/Recovery lives in the boat with low ceiling that requires a lot of trunk bending. PT-OP-C Subjective Start: 02/21/18 15:30 Freq: Status: Active Protocol: Document 06/13/18 13:43 EA (Rec: 06/13/18 13:45 EA [id number]) OP-PT Subjective Patient Comments Patient Comments Pt reports that h's low back and right hip groin problem is resolved and would like to know how to prevent with exercises and other pre- cautions. PT-OP-D Balance Start: 02/21/18 15:30 Freq: Status: Active Protocol: Document 02/21/18 17:36 EA (Rec: 02/21/18 17:36 EA [id number]) OP-PT Balance Assessment Sitting Balance Static Sitting Balance Ability Good Dynamic Sitting Balance Ability Good Standing Balance Static Standing Balance Ability Good Dynamic Standing Balance Ability Good Balance Tests Single Limb Standing Single Limb- Right <3 seconds Single Limb- Left <2 seconds Joao Fall Scale Copyright Permission Joao JM, Joao RM, Silviano SJ. Development of a scale to identify the fall- prone patient. Can J Aging 1989;8;366-7. Macie Shepherd (2009). Preventing patient falls. (2nd ed). [place]: Shahid. PT-OP-G Mobility & Gait Start: 02/21/18 15:30 Freq: Status: Active Protocol: Document 02/21/18 15:33 EA (Rec: 02/21/18 16:00 EA [id number]) OP Mobility Evaluation Bed Mobility Rolling Indep with difficulty Supine to and from Sit Idenp w/ difficulty OP Gait Assessment Gait Gait Assistance Required: Independent Able to Maintain Weight Bearing Status Yes During Gait Assistive Devices Assistive Device None Factors Limiting Gait Function Factors Limiting Gait Function Decreased Strength Comments Gait Comments Left foot dropped moderately. PT-OP-J Posture/Palpation/Skin Start: 02/21/18 15:30 Freq: Status: Active Protocol: Document 02/21/18 15:33 EA (Rec: 02/21/18 16:00 EA [id number]) Posture Evaluation Position Standing Evaluation View Post/lat Head/C-Spine Posture Forward Head L-Spine Posture Flattened Decreased Lordosis Shoulder Posture (L) Rounded (R) Rounded Scapula Posture (L) Protracted (R) Protracted Pelvis Posture Posterior Tilted Ankle/Foot Posture (L) Forefoot Adducted Toe Posture (L) Clawed Toes (L) Extended Toes Comments Posture Comments Fair posture Palpation Assessment Location Two Palpation Location Tightness to left QL, both multifidus Palpation Findings Soft Tissue Tightness One Palpation Location Grade 2 tenderness to right SI joint, left paraspinals, L QL Palpation Findings Tenderness Palpation Details Grade 2 tenderness to right SI joint, left paraspinals PT-OP-K Range of Motion Start: 02/21/18 15:30 Freq: Status: Active Protocol: Document 04/18/18 15:36 EA (Rec: 04/18/18 15:40 EA [id number]) Lumbar Spine Range of Motion Lumbar Spine Active Percentage Testing Position standing Flexion 100 Extension 70 Rotation Left 85 Rotation Right 85 Lateral Flexion Left 90 Lateral Flexion Right 90 ROM Limitations Soft Tissue Tightness PT-OP-L Special Tests Start: 02/21/18 15:30 Freq: Status: Active Protocol: Document 02/21/18 15:30 EA (Rec: 02/21/18 17:19 EA [id number]) Special Tests Lumbar Spine Special Tests Straight Leg Raise Test Results negative Other- 2 Test Results Sensitive: L sidebend & rotation Comments Posterior quadrant/facets joint Other- 1 Test Results sensitive to right Comments Compression S/L Compression Test Results Neg Comments ant/ supine Hip Special Tests [id number] Test Results Negative PT-OP-M Strength Start: 02/21/18 15:30 Freq: Status: Active Protocol: Document 04/18/18 15:36 EA (Rec: 04/18/18 15:40 EA [id number]) Trunk Strength Trunk Manual Muscle Testing Testing Position sup/prone/sitting Flexion 4- Good- Extension 4- Good- Rotation Left 4- Good- Rotation Right 4- Good- Lateral Flexion Left 4- Good- Lateral Flexion Right 4- Good- Hip Strength Hip Manual Muscle Testing Left Flexion (L2) 4 Good Extension (S1) 4 Good Abduction 4 Good External Rotation 4+ Good+ Internal Rotation 4- Good- Comments RLE are WFL Knee Strength Knee Manual Muscle Testing Left Flexion (S2) 4+ Good+ Extension (L3) 5 Normal Comments R knee F/E are WFL Ankle/Foot Strength Ankle and Foot Manual Muscle Testing Left Dorsiflexion (L4) 3 Fair Plantarflexion (S1) 4- Good- Inversion 3- Fair- Eversion (S1) 3- Fair- Comments R ankle DF/PF/INV/EV are WFL PT-OP-Q Treatments Start: 02/21/18 15:30 Freq: Status: Active Protocol: Document 06/13/18 13:43 EA (Rec: 06/13/18 13:45 EA [id number]) Self-Care/Home Management Treatment Education Patient Education [employer]ics Home Exercise Program Joint Protection Pain Management Posture PT-OP-R Modalities Start: 02/21/18 15:30 Freq: Status: Active Protocol: Document 04/18/18 15:17 EA (Rec: 04/18/18 15:31 EA [id number]) Hot Pack/Cold Pack Treatment Hot Pack Location paralumbars Treatment Duration (minutes) 15 Patient Tolerance Good PT-OP-T Assessment and Plan Start: 02/21/18 15:30 Freq: Status: Active Protocol: Document 06/13/18 13:43 EA (Rec: 06/13/18 13:45 EA [id number]) Physical Therapy Assessment Assessment Summary Assessment Pt is discharge to this date due to goals met and patient request. Patient is educated with HEP and other back pain prevention and pre-caution with good understanding. Physical Therapy Plan Discharge Physical Therapy Discharge Reasons Goals Met Discharge Comments Patient request
== END 2018-06-13 13:51 ==
LOC: PHYS 12:15
PROVIDERS: Family Provider Physician Assistant; PCP Physician Assistant; Visit Provider Physician Assistant
DX: M76.02 Gluteal tendinitis, left hip (principal); M16.12 Unilateral primary osteoarthritis, left hip; M54.5 Low back pain
CPT/HCPCS: 97014; 97110; 97112; 97140; 97162; 97535; G0283